=== PATIENT | male | born 1960 | race Caucasian/White ===

== ENCOUNTER → 2016-07-10 | Outpatient (CLI) | payer OTHER ==
--- NOTE | 2016-07-11 07:03 | REP ---
Clinical: Follow-up pulmonary nodule. Comparison: 03/22/2016. Findings: The bilateral lung [place] are well-aerated and relatively symmetric. The previously concerning nodular density in the anterobasilar left lower lobe has completely resolved. The small subpleural density noted on prior examination in the right middle lobe is unchanged and represents small scarring. No evidence for acute consolidation, new nodule or mass lesion identified. No pleural effusion/reaction or pneumothorax. Tracheobronchial tree is patent - mild perihilar bronchiectasis cannot be excluded. Mediastinum is stable and grossly normal. Mild atherosclerotic changes to the coronary arteries are identified. No pericardial effusion is appreciated. Surrounding musculoskeletal structures are intact. Limited evaluation of the upper abdomen suggests hepatosteatosis as well as stable low density lesion in the left kidney most compatible with cyst. Impression: Previously identified left lower lobe opacity has completely resolved. No new, significant mediastinal or pleuroparenchymal process appreciated. Very minimal perihilar bronchiectasis cannot be excluded. Abdomen demonstrates hepatosteatosis as well as presumed left renal cyst. Signed by Martín Pierce MD 07/11/2016 06:54 A
== END | disposition home or self-care (01) ==
LOC: M RAD 07:53
PROVIDERS: ATTEND Internal Medicine Pulmonary Disease
DX: R91.8 Other nonspecific abnormal finding of lung field (principal)

== ENCOUNTER 2016-07-21 10:39 | Emergency (ER) | payer OTHER ==
[2016-07-21] MEDS ORDERED: LORazepam 2 MG/ML VIAL (J2060) As Ordered ONE (11:59)
[2016-07-21 12:25] LABS: BASO % 0.5 % (0.0-1.0); EOS # 0.2 K/mm3 (0.0-0.50); EOS % 1.6 % (0.0-3.0); LARGE UNSTAINED CELL # 0.1 K/mm3 (0.0-0.4); LARGE UNSTAINED CELL % 1.4 % (0.0-4.0); LYMPH # 0.7 K/mm3 (1.5-4.5); MEAN CORPUSCULAR HEMOGLOBIN 33.8 pg (27.0-33.0); MEAN CORPUSCULAR HGB CONC 33.8 g/dl (32.0-36.5); MEAN CORPUSCULAR VOLUME 100.2 fl (80.0-96.0); MONO # 0.7 K/mm3 (0.0-0.8); MONO % 7.1 % (0.0-5.0); NEUTROPHILS # 7.4 K/mm3 (1.8-7.7); NEUTROPHILS % 81.4 % (36.0-66.0); PLATELET COUNT, AUTOMATED 227 k/mm3 (150-450); RED CELL DISTRIBUTION WIDTH 12.5 % (11.5-14.5); WHITE BLOOD COUNT 9.1 K/mm3 (4.0-10.0)
[2016-07-21 12:47] LABS: ALBUMIN 3.8 GM/DL (3.2-5.2); ALKALINE PHOSPHATASE 104 U/L (45-117); ALT/SGPT 44 U/L (12-78); ANION GAP 7 MEQ/L (8-16); AST/SGOT 62 U/L (15-37); BILIRUBIN,TOTAL 3.8 MG/DL (0.2-1.0); BLOOD UREA NITROGEN 9 MG/DL (7-18); CALCIUM LEVEL 9.2 MG/DL (8.5-10.1); CARBON DIOXIDE LEVEL 33 MEQ/L (21-32); CHLORIDE LEVEL 101 MEQ/L (98-107); CREATININE FOR GFR 1.16 MG/DL (0.70-1.30); GLOMERULAR FILTRATION RATE > 60.0 (>56); GLUCOSE, FASTING 92 MG/DL (70-105); POTASSIUM SERUM 4.7 MEQ/L (3.5-5.1); SODIUM LEVEL 141 MEQ/L (136-145); TOTAL PROTEIN 7.6 GM/DL (6.4-8.2)
--- NOTE | 2016-07-21 13:26 | EDDOCDS ---
Nurse's Notes [facility] Name: Samm Cantu Age: 56 yrs Sex: Male : 1960 Arrival Date: 07/21/2016 Time: 10:39 Bed I3 / M3 Private MD: Sherri Quintero Diagnosis: Drug-induced tremor-medication related Presentation: 07/21 11:02 Presenting complaint: Patient states: dizziness/weakness and shakiness started on rs3 at work. was sent home from work. symptoms not resolved. increased leg shakiness worse at night. H/o mild to moderate tremor for 2-3 years. Paxil dose was increased from 40 mg to 60 mg last Friday. Adult Sepsis Screening: The patient does not have new or worsening altered mentation. Patient's respiratory rate is less than 22. Systolic blood pressure is greater than 100. Patient has a qSOFA score of 0- Negative Sepsis Screen. Suicide/Homicide risk assessment- the patient denies having any suicidal and/or homicidal ideations and does not present with any other emotional, behavioral or mental health complaints. Status: Patient is not a answering service operator or dependent. Transition of care: patient was not received from another setting of care. 11:02 Acuity: SUSIE Level 4 rs3 11:02 Method Of Arrival: Walkin/Carried/Asstd rs3 Triage Assessment: 11:09 General: Appears in no apparent distress. Pain: Denies pain. Pt Declines HIV testing. rs3 Historical: - Allergies: Lyrica (Rash); - Home Meds: 1. paroxetine HCl 60 mg Oral tab once daily 2. amlodipine 5 mg Oral tab 1 tab once daily 3. hydrocodone-acetaminophen 5-500 mg Oral cap twice a day - PMHx: Hypertension; Anxiety; Sleep Apnea w/o CPAP; - PSHx: Rotator Cuff Repair- Right; Carpal Tunnel Repair- Left; - Social history: Smoking status: Patient uses tobacco products, light tobacco smoker. No barriers to communication noted, The patient speaks fluent Tajik. - Family history: Not pertinent. - : The pt / caregiver states he / she is not on anticoagulants. Home medication list is obtained from the patient. - Exposure Risk Screening:: None identified. Screenin:22 Screening information is obtained from the patient. Fall risk: No risks identified. dewayneg Assistance ADL's: requires no assistance with activities of daily living. Abuse/DV Screen: The patient / caregiver reports he/she is: not in a situation that causes fear, pain or injury. Nutritional screening: No deficits noted. Advance Directives: Currently, there is no health care proxy. There is no active DNR order. There is no living will. There is no Power of Active Directory Engineer. Advance directive information has not previously been placed in an [facility] medical record. Further advance directive information is declined. home support is adequate. Assessment: 12:21 General: Appears in no apparent distress, Behavior is cooperative, pleasant. Pain: dwg Denies pain. Neurological: Level of Consciousness is awake, alert, Oriented to person, place, time, Outreach Consultant are equal bilaterally Moves all extremities. Full function Gait is steady, Speech is normal, Facial symmetry appears normal, Pupils are PERRLA. Respiratory: Airway is patent Respiratory effort is even, unlabored, Respiratory pattern is regular, symmetrical, Breath sounds are clear bilaterally. GI: Bowel sounds present X 4 quads. Vital Signs: 10:41 BP 159 / 97; Pulse 110; Resp 20; Temp 98.8(O); Pulse Ox 97% on R/A; Weight 90.72 kg elp (R); Height 6 ft. 0 in. (182.88 cm) (R); Pain 0/10; 13:24 BP 148 / 88; Pulse 96; Resp 18; Temp 97.4; Pulse Ox 98% on R/A; Pain 0/10; dls 10:41 Body Mass Index 27.12 (90.72 kg, 182.88 cm) [facility] Vitals: 10:41 Log In Time: July 21, 2016 at 10:35. [facility] ED Course: 10:40 Patient visited by Esther Turner PCA. elp 10:40 Patient moved to Waiting elp 10:41 Sherri Quintero is Private Physician. elp 10:42 Patient visited by Esther Turner PCA. elp 10:42 Patient moved to Pre RCE elp 11:06 Triage Initiated rs3 11:10 Patient moved to Triage 2 rs3 11:36 Corky Gomez [facility]C [facility]. cc10 11:36 Kelley Saldana MD is Attending Physician. cc10 11:36 Patient visited by Corky Gomez PA-C. cc10 11:36 Patient visited by Corky Gomez PA-C. cc10 11:51 Patient moved to I3 / M3 ar3 12:00 Patient visited by Thalia Ingram PCA. ar3 12:00 [facility] Payment Agreement was scanned into [employer] and attached to record. mm15 12:00 EKG done. (by ED staff). Reviewed by Corky Gomez PA-C. ar3 12:20 Liver Profile Sent. dwg 12:21 Inserted peripheral IV: 20gauge IV in right antecubital area. Labs drawn. Sent per dwg order to lab. 12:22 Patient visited by Richard Chang RN. dwg 12:55 Patient visited by Fortunato Ashton PCA. jlf 13:05 Patient visited by Fortunato Ashton PCA. jlf 13:12 Sherri Quintero is Referral Physician. cc10 13:14 Nilam Hwang MD is Referral Physician. cc10 13:22 Discontinued IV lock intact, bleeding controlled, pressure dressing applied, No dls redness/swelling at site. No procedures done that require assistance. 13:25 The patient / caregiver is instructed regarding the plan of care and ED course. dls Administered Medications: 12:20 Drug: LORazepam 0.5 mg [lorazepam 2 mg/mL injection solution (0.25 mL)] Route: IVP; dwg Site: right antecubital; 13:04 Follow up: Response: Tremor to right hand/arm resolved dwg Order Results: Lab Order: Basic Metabolic Profile; SPEC'M 07/21/16 12:10 Test: GLUCOSE, FASTING; Value: 92; Range: 70-105; Units: MG/DL; Status: F Test: BLOOD UREA NITROGEN; Value: 9; Range: 7-18; Units: MG/DL; Status: F Test: CREATININE FOR GFR; Value: 1.16; Range: 0.70-1.30; Units: MG/DL; Status: F Test: GLOMERULAR FILTRATION RATE; Value: > 60.0; Range: >56; Status: F Test: SODIUM LEVEL; Value: 141; Range: 136-145; Units: MEQ/L; Status: F Test: POTASSIUM SERUM; Value: 4.7; Range: 3.5-5.1; Units: MEQ/L; Status: F Test: CHLORIDE LEVEL; Value: 101; Range: 98-107; Units: MEQ/L; Status: F Test: CARBON DIOXIDE LEVEL; Value: 33; Range: 21-32; Abnormal: Above high normal; Units: MEQ/L; Status: F Test: ANION GAP; Value: 7; Range: 8-16; Abnormal: Below low normal; Units: MEQ/L; Status: F Test: CALCIUM LEVEL; Value: 9.2; Range: 8.5-10.1; Units: MG/DL; Status: F Test Note: ; Units are mL/min/1.73 m2 Chronic Kidney Disease Staging per NKF: Stage I & II GFR >=60 Normal to Mildly Decreased Stage III GFR 30-59 Moderately Decreased Stage IV GFR 15-29 Severely Decreased Stage V GFR <15 Very Little GFR Left ESRD GFR <15 on TENANT RELATIONS COORDINATOR Lab Order: CBC with Diff; SPEC'M 07/21/16 12:10 Test: WHITE BLOOD COUNT; Value: 9.1; Range: 4.0-10.0; Units: K/mm3; Status: F Test: RED BLOOD COUNT; Value: 5.07; Range: 4.30-6.10; Units: M/mm3; Status: F Test: HEMOGLOBIN; Value: 17.2; Range: 14.0-18.0; Units: g/dl; Status: F Test: HEMATOCRIT; Value: 50.8; Range: 42.0-52.0; Units: %; Status: F Test: MEAN CORPUSCULAR VOLUME; Value: 100.2; Range: 80.0-96.0; Abnormal: Above high normal; Units: fl; Status: F Test: MEAN CORPUSCULAR HEMOGLOBIN; Value: 33.8; Range: 27.0-33.0; Abnormal: Above high normal; Units: pg; Status: F Test: MEAN CORPUSCULAR HGB CONC; Value: 33.8; Range: 32.0-36.5; Units: g/dl; Status: F Test: RED CELL DISTRIBUTION WIDTH; Value: 12.5; Range: 11.5-14.5; Units: %; Status: F Test: PLATELET COUNT, AUTOMATED; Value: 227; Range: 150-450; Units: k/mm3; Status: F Test: NEUTROPHILS %; Value: 81.4; Range: 36.0-66.0; Abnormal: Above high normal; Units: %; Status: F Test: LYMPH %; Value: 8.0; Range: 24.0-44.0; Abnormal: Below low normal; Units: %; Status: F Test: MONO %; Value: 7.1; Range: 0.0-5.0; Abnormal: Above high normal; Units: %; Status: F Test: EOS %; Value: 1.6; Range: 0.0-3.0; Units: %; Status: F Test: BASO %; Value: 0.5; Range: 0.0-1.0; Units: %; Status: F Test: LARGE UNSTAINED CELL %; Value: 1.4; Range: 0.0-4.0; Units: %; Status: F Test: NEUTROPHILS #; Value: 7.4; Range: 1.8-7.7; Units: K/mm3; Status: F Test: LYMPH #; Value: 0.7; Range: 1.5-4.5; Abnormal: Below low normal; Units: K/mm3; Status: F Test: MONO #; Value: 0.7; Range: 0.0-0.8; Units: K/mm3; Status: F Test: EOS #; Value: 0.2; Range: 0.0-0.50; Units: K/mm3; Status: F Test: BASO #; Value: 0.0; Range: 0.0-0.2; Units: K/mm3; Status: F Test: LARGE UNSTAINED CELL #; Value: 0.1; Range: 0.0-0.4; Units: K/mm3; Status: F Lab Order: Cardiac Injury Profile; SPEC'M 07/21/16 12:10 Test: CPK CREATINE PHOSPHOKINASE; Value: 147; Range: 39-308; Units: U/L; Status: F Test: CK-MB VALUE MASS; Value: 2.6; Range: 0.0-3.6; Units: NG/ML; Status: F Test: MB/CK RELATIVE INDEX; Value: 1.76; Range: < OR =4; Status: F Test Note: ; DIAGNOSIS CRITERIA MMB ng/ml Relative Index (RI) NON-AMI < or = 5 N/A ABBASI ZONE > 5 < or = 4 AMI > 5 > 4 Lab Order: Troponin; SPEC'M 07/21/16 12:10 Test: TROPONIN I; Value: < 0.02; Range: < 0.10; Units: NG/ML; Status: F Test Note: ; Troponin I Reference Interval for [facility] LOCI: 99th Percentile= 0.00-0.045 ng/ml Risk Stratification: <= 0.10 ng/ml Decreased Risk for Adverse Clinical Events. 0.10-1.50 ng/ml Increased Risk for Adverse Clinical Events. Evaluation of additional criterion and/or repeat testing in 2-6 hours is suggested to rule out myocardial damage. >= 1.50 ng/ml Indicative of Myocardial Injury. Lab Order: Liver Profile; SPEC'M 07/21/16 12:10 Test: AST/SGOT; Value: 62; Range: 15-37; Abnormal: Above high normal; Units: U/L; Status: F Test: ALT/SGPT; Value: 44; Range: 12-78; Units: U/L; Status: F Test: ALKALINE PHOSPHATASE; Value: 104; Range: 45-117; Units: U/L; Status: F Test: BILIRUBIN,TOTAL; Value: 3.8; Range: 0.2-1.0; Abnormal: Above high normal; Units: MG/DL; Status: F Test: BILIRUBIN,DIRECT; Value: 1.0; Range: 0.0-0.2; Abnormal: Above high normal; Units: MG/DL; Status: F Test: TOTAL PROTEIN; Value: 7.6; Range: 6.4-8.2; Units: GM/DL; Status: F Test: ALBUMIN; Value: 3.8; Range: 3.2-5.2; Units: GM/DL; Status: F Test: ALBUMIN/GLOBULIN RATIO; Value: 1.00; Range: 1.00-1.93; Status: F Outcome: 13:13 Discharge ordered by Provider. cc10 13:22 Discharge Assessment: Patient awake, alert and oriented x 3. No cognitive and/or dls functional deficits noted. Patient verbalized understanding of disposition instructions. patient administered narcotics - no. The following High Risk Discharge criteria are identified: None. Discharged to home ambulatory, with significant other. Condition: stable. Discharge instructions given to patient, Instructed on discharge instructions, follow up and referral plans. Demonstrated understanding of instructions, Pt was receptive of discharge instructions/ teaching. No special radiology studies were completed. Property sent home with patient. 13:25 Patient left the ED. dls Signatures: Richard Chang RN RN dwg Scott, Debra, RN RN dls Soosairaj, Rosemary, RN RN rs3 Thalia Ingram, MUSICAL INSTRUMENT SUPERVISOR MUSICAL INSTRUMENT SUPERVISOR ar3 Krystle Matta mm15 Esther Turner, MUSICAL INSTRUMENT SUPERVISOR MUSICAL INSTRUMENT SUPERVISOR elp Fortunato Ashton, MUSICAL INSTRUMENT SUPERVISOR MUSICAL INSTRUMENT SUPERVISOR jlf Cokry Gomez, PA-C PA-C cc10 MTDD
--- NOTE | 2016-07-21 13:26 | EDDOCDS ---
Physician Documentation [facility] Name: Samm Cantu Age: 56 yrs Sex: Male : 1960 Arrival Date: 07/21/2016 Time: 10:39 Bed I3 / M3 Private MD: Sherri Quintero Disposition: 07/21/16 13:13 Discharged to Home/Self Care. Impression: Drug-induced tremor - medication related. - Condition is Stable. - Discharge Instructions: Dystonic Reaction, Tremor. - Medication Reconciliation, Work Release Form - 3 day form. - Follow up: Emergency Department; When: As needed; Reason: Worsening of conditions. Follow up: Sherri Quintero; When: Tomorrow; Reason: Wound/Symptom Recheck, Recheck today's complaints, Worsening of conditions, Continuance of care. Follow up: Nilam Hwang MD; When: Call to arrange an appointment; Reason: Wound/Symptom Recheck, Recheck today's complaints, Worsening of conditions, Continuance of care, To establish care. - Problem is an ongoing problem. - Symptoms have improved. Historical: - Allergies: Lyrica (Rash); - Home Meds: 1. paroxetine HCl 60 mg Oral tab once daily 2. amlodipine 5 mg Oral tab 1 tab once daily 3. hydrocodone-acetaminophen 5-500 mg Oral cap twice a day - PMHx: Hypertension; Anxiety; Sleep Apnea w/o CPAP; - PSHx: Rotator Cuff Repair- Right; Carpal Tunnel Repair- Left; - Social history: Smoking status: Patient uses tobacco products, light tobacco smoker. No barriers to communication noted, The patient speaks fluent Guamanian. - Family history: Not pertinent. - : The pt / caregiver states he / she is not on anticoagulants. Home medication list is obtained from the patient. - Exposure Risk Screening:: None identified. Vital Signs: 07/21 10:41 BP 159 / 97; Pulse 110; Resp 20; Temp 98.8(O); Pulse Ox 97% on R/A; Weight 90.72 kg / elp 200 lbs (R); Height 6 ft. 0 in. (182.88 cm) (R); Pain 0/10; 13:24 BP 148 / 88; Pulse 96; Resp 18; Temp 97.4; Pulse Ox 98% on R/A; Pain 0/10; dls 10:41 Body Mass Index 27.12 (90.72 kg, 182.88 cm) elp MDM: 11:51 IV Saline Lock ordered. cc10 11:51 Undress patient appropriately for examination ordered. cc10 11:51 LORazepam 0.5 mg IVP once ordered. cc10 11:51 Basic Metabolic Profile Ordered. EDMS 11:51 CBC with Diff Ordered. EDMS 11:51 Cardiac Injury Profile Ordered. EDMS 11:51 Troponin Ordered. EDMS 11:51 Liver Profile Ordered. EDMS 11:52 ECG WITH READING ER PHYS+CARDIAG ordered. EDMS 11:53 CT Head Without Contrast Ordered. EDMS 11:58 Financial registration complete. mm15 12:00 [facility] Payment Agreement was scanned into [employer] and attached to record. mm15 12:54 Basic Metabolic Profile Reviewed. cc10 12:54 CBC with Diff Reviewed. cc10 12:54 Liver Profile Reviewed. cc10 12:54 Cardiac Injury Profile Reviewed. cc10 12:54 Troponin Reviewed. cc10 Administered Medications: 12:20 Drug: LORazepam 0.5 mg [lorazepam 2 mg/mL injection solution (0.25 mL)] Route: IVP; dwg Site: right antecubital; 13:04 Follow up: Response: Tremor to right hand/arm resolved dwg Signatures: Dispatcher [employer] Milagros Goodwin, RN RN dls Melissa Mena RN RN rs3 Krystle Matta mm15 Corky Gomez PA-C PA-C cc10 Greene, Daniel RN dwg The chart was reviewed and I authenticate all verbal orders and agree with the evaluation and treatment provided.Attachments: 12:00 [facility] Payment Agreement mm15 MTDD
--- NOTE | 2016-07-21 15:52 | ECGEPIP ---
Stationary ECG Study 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
--- NOTE | 2016-07-22 11:15 | REP ---
CT of the brain without IV contrast: There are no comparisons. There is no hemorrhage. There is no edema, mass effect or midline shift. Cortical stripe is unremarkable. Ventricles and sulci are unremarkable. The visualized sinuses and mastoids are unremarkable. Impression: There is no hemorrhage, acute infarct or mass. Negative CT scan of the brain. Signed by Richard Garnett MD 07/21/2016 12:14 P
--- NOTE | 2016-07-23 14:26 | EDDOCDS ---
Nurse's Notes [facility] Name: Samm Cantu Age: 56 yrs Sex: Male : 1960 Arrival Date: 07/21/2016 Time: 10:39 Bed I3 / M3 Private MD: Sherri Quintero Diagnosis: Drug-induced tremor-medication related Presentation: 07/21 11:02 Presenting complaint: Patient states: dizziness/weakness and shakiness started on rs3 at work. was sent home from work. symptoms not resolved. increased leg shakiness worse at night. H/o mild to moderate tremor for 2-3 years. Paxil dose was increased from 40 mg to 60 mg last Friday. Adult Sepsis Screening: The patient does not have new or worsening altered mentation. Patient's respiratory rate is less than 22. Systolic blood pressure is greater than 100. Patient has a qSOFA score of 0- Negative Sepsis Screen. Suicide/Homicide risk assessment- the patient denies having any suicidal and/or homicidal ideations and does not present with any other emotional, behavioral or mental health complaints. 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 Transition of care: patient was not received from another setting of care. 11:02 Acuity: SUSIE Level 4 rs3 11:02 Method Of Arrival: Walkin/Carried/Asstd rs3 Triage Assessment: 11:09 General: Appears in no apparent distress. Pain: Denies pain. Pt Declines HIV testing. rs3 Historical: - Allergies: Lyrica (Rash); - Home Meds: 1. paroxetine HCl 60 mg Oral tab once daily 2. amlodipine 5 mg Oral tab 1 tab once daily 3. hydrocodone-acetaminophen 5-500 mg Oral cap twice a day - PMHx: Hypertension; Anxiety; Sleep Apnea w/o CPAP; - PSHx: Rotator Cuff Repair- Right; Carpal Tunnel Repair- Left; - Social history: Smoking status: Patient uses tobacco products, light tobacco smoker. No barriers to communication noted, The patient speaks fluent Amharic. - Family history: Not pertinent. - : The pt / caregiver states he / she is not on anticoagulants. Home medication list is obtained from the patient. - Exposure Risk Screening:: None identified. Screenin:22 Screening information is obtained from the patient. Fall risk: No risks identified. dewayneg Assistance ADL's: requires no assistance with activities of daily living. Abuse/DV Screen: The patient / caregiver reports he/she is: not in a situation that causes fear, pain or injury. Nutritional screening: No deficits noted. Advance Directives: Currently, there is no health care proxy. There is no active DNR order. There is no living will. There is no Power of C Consultant. Advance directive information has not previously been placed in an [facility] medical record. Further advance directive information is declined. home support is adequate. Assessment: 12:21 General: Appears in no apparent distress, Behavior is cooperative, pleasant. Pain: dwg Denies pain. Neurological: Level of Consciousness is awake, alert, Oriented to person, place, time, Energy Trader are equal bilaterally Moves all extremities. Full function Gait is steady, Speech is normal, Facial symmetry appears normal, Pupils are PERRLA. Respiratory: Airway is patent Respiratory effort is even, unlabored, Respiratory pattern is regular, symmetrical, Breath sounds are clear bilaterally. GI: Bowel sounds present X 4 quads. Vital Signs: 10:41 BP 159 / 97; Pulse 110; Resp 20; Temp 98.8(O); Pulse Ox 97% on R/A; Weight 90.72 kg elp (R); Height 6 ft. 0 in. (182.88 cm) (R); Pain 0/10; 13:24 BP 148 / 88; Pulse 96; Resp 18; Temp 97.4; Pulse Ox 98% on R/A; Pain 0/10; dls 10:41 Body Mass Index 27.12 (90.72 kg, 182.88 cm) [facility] Vitals: 10:41 Log In Time: July 21, 2016 at 10:35. [facility] ED Course: 10:40 Patient visited by Esther Turner PCA. elp 10:40 Patient moved to Waiting elp 10:41 hSerri Quintero is Private Physician. elp 10:42 Patient visited by Esther Turner PCA. elp 10:42 Patient moved to Pre RCE elp 11:06 Triage Initiated rs3 11:10 Patient moved to Triage 2 rs3 11:36 [facility] cc10 11:36 Kelley Saldana MD is Attending Physician. cc10 11:36 Patient visited by Corky Gomez PA-C. cc10 11:36 Patient visited by Corky Gomez PA-C. cc10 11:51 Patient moved to I3 / M3 ar3 12:00 Patient visited by Thalia Ingram PCA. ar3 12:00 [facility] Payment Agreement was scanned into [email or web address] and attached to record. mm15 12:00 EKG done. (by ED staff). Reviewed by Corky Gomez PA-C. ar3 12:20 Liver Profile Sent. dwg 12:21 Inserted peripheral IV: 20gauge IV in right antecubital area. Labs drawn. Sent per dwg order to lab. 12:22 Patient visited by Richard Chang RN. dwg 12:55 Patient visited by Fortunato Ashton PCA. jlf 13:05 Patient visited by Fortunato Ashton PCA. jlf 13:12 Sherri Quintero is Referral Physician. cc10 13:14 Nilam Hwang MD is Referral Physician. cc10 13:22 Discontinued IV lock intact, bleeding controlled, pressure dressing applied, No dls redness/swelling at site. No procedures done that require assistance. 13:25 The patient / caregiver is instructed regarding the plan of care and ED course. dls 16:04 EKG-ADULT Returned. EDMS 18:18 T-Sheet-- Draft Copy was scanned into [employer] and attached to record. klr 19:19 ECG/EKG was scanned into [employer] and attached to record. kf3 07/22 11:20 CT Head Without Contrast Returned. EDMS Administered Medications: 07/21 12:20 Drug: LORazepam 0.5 mg [lorazepam 2 mg/mL injection solution (0.25 mL)] Route: IVP; dwg Site: right antecubital; 13:04 Follow up: Response: Tremor to right hand/arm resolved dwg Order Results: Lab Order: Basic Metabolic Profile; SPEC'M 07/21/16 12:10 Test: GLUCOSE, FASTING; Value: 92; Range: 70-105; Units: MG/DL; Status: F Test: BLOOD UREA NITROGEN; Value: 9; Range: 7-18; Units: MG/DL; Status: F Test: CREATININE FOR GFR; Value: 1.16; Range: 0.70-1.30; Units: MG/DL; Status: F Test: GLOMERULAR FILTRATION RATE; Value: > 60.0; Range: >56; Status: F Test: SODIUM LEVEL; Value: 141; Range: 136-145; Units: MEQ/L; Status: F Test: POTASSIUM SERUM; Value: 4.7; Range: 3.5-5.1; Units: MEQ/L; Status: F Test: CHLORIDE LEVEL; Value: 101; Range: 98-107; Units: MEQ/L; Status: F Test: CARBON DIOXIDE LEVEL; Value: 33; Range: 21-32; Abnormal: Above high normal; Units: MEQ/L; Status: F Test: ANION GAP; Value: 7; Range: 8-16; Abnormal: Below low normal; Units: MEQ/L; Status: F Test: CALCIUM LEVEL; Value: 9.2; Range: 8.5-10.1; Units: MG/DL; Status: F Test Note: ; Units are mL/min/1.73 m2 Chronic Kidney Disease Staging per NKF: Stage I & II GFR >=60 Normal to Mildly Decreased Stage III GFR 30-59 Moderately Decreased Stage IV GFR 15-29 Severely Decreased Stage V GFR <15 Very Little GFR Left ESRD GFR <15 on DIRECTOR OF SCIENTIFIC RESEARCH Lab Order: CBC with Diff; SPEC'M 07/21/16 12:10 Test: WHITE BLOOD COUNT; Value: 9.1; Range: 4.0-10.0; Units: K/mm3; Status: F Test: RED BLOOD COUNT; Value: 5.07; Range: 4.30-6.10; Units: M/mm3; Status: F Test: HEMOGLOBIN; Value: 17.2; Range: 14.0-18.0; Units: g/dl; Status: F Test: HEMATOCRIT; Value: 50.8; Range: 42.0-52.0; Units: %; Status: F Test: MEAN CORPUSCULAR VOLUME; Value: 100.2; Range: 80.0-96.0; Abnormal: Above high normal; Units: fl; Status: F Test: MEAN CORPUSCULAR HEMOGLOBIN; Value: 33.8; Range: 27.0-33.0; Abnormal: Above high normal; Units: pg; Status: F Test: MEAN CORPUSCULAR HGB CONC; Value: 33.8; Range: 32.0-36.5; Units: g/dl; Status: F Test: RED CELL DISTRIBUTION WIDTH; Value: 12.5; Range: 11.5-14.5; Units: %; Status: F Test: PLATELET COUNT, AUTOMATED; Value: 227; Range: 150-450; Units: k/mm3; Status: F Test: NEUTROPHILS %; Value: 81.4; Range: 36.0-66.0; Abnormal: Above high normal; Units: %; Status: F Test: LYMPH %; Value: 8.0; Range: 24.0-44.0; Abnormal: Below low normal; Units: %; Status: F Test: MONO %; Value: 7.1; Range: 0.0-5.0; Abnormal: Above high normal; Units: %; Status: F Test: EOS %; Value: 1.6; Range: 0.0-3.0; Units: %; Status: F Test: BASO %; Value: 0.5; Range: 0.0-1.0; Units: %; Status: F Test: LARGE UNSTAINED CELL %; Value: 1.4; Range: 0.0-4.0; Units: %; Status: F Test: NEUTROPHILS #; Value: 7.4; Range: 1.8-7.7; Units: K/mm3; Status: F Test: LYMPH #; Value: 0.7; Range: 1.5-4.5; Abnormal: Below low normal; Units: K/mm3; Status: F Test: MONO #; Value: 0.7; Range: 0.0-0.8; Units: K/mm3; Status: F Test: EOS #; Value: 0.2; Range: 0.0-0.50; Units: K/mm3; Status: F Test: BASO #; Value: 0.0; Range: 0.0-0.2; Units: K/mm3; Status: F Test: LARGE UNSTAINED CELL #; Value: 0.1; Range: 0.0-0.4; Units: K/mm3; Status: F Lab Order: Cardiac Injury Profile; SPEC'M 07/21/16 12:10 Test: CPK CREATINE PHOSPHOKINASE; Value: 147; Range: 39-308; Units: U/L; Status: F Test: CK-MB VALUE MASS; Value: 2.6; Range: 0.0-3.6; Units: NG/ML; Status: F Test: MB/CK RELATIVE INDEX; Value: 1.76; Range: < OR =4; Status: F Test Note: ; DIAGNOSIS CRITERIA MMB ng/ml Relative Index (RI) NON-AMI < or = 5 N/A ABBASI ZONE > 5 < or = 4 AMI > 5 > 4 Lab Order: Troponin; SPEC'M 07/21/16 12:10 Test: TROPONIN I; Value: < 0.02; Range: < 0.10; Units: NG/ML; Status: F Test Note: ; Troponin I Reference Interval for [employer] LOCI: 99th Percentile= 0.00-0.045 ng/ml Risk Stratification: <= 0.10 ng/ml Decreased Risk for Adverse Clinical Events. 0.10-1.50 ng/ml Increased Risk for Adverse Clinical Events. Evaluation of additional criterion and/or repeat testing in 2-6 hours is suggested to rule out myocardial damage. >= 1.50 ng/ml Indicative of Myocardial Injury. Lab Order: Liver Profile; SPEC'M 07/21/16 12:10 Test: AST/SGOT; Value: 62; Range: 15-37; Abnormal: Above high normal; Units: U/L; Status: F Test: ALT/SGPT; Value: 44; Range: 12-78; Units: U/L; Status: F Test: ALKALINE PHOSPHATASE; Value: 104; Range: 45-117; Units: U/L; Status: F Test: BILIRUBIN,TOTAL; Value: 3.8; Range: 0.2-1.0; Abnormal: Above high normal; Units: MG/DL; Status: F Test: BILIRUBIN,DIRECT; Value: 1.0; Range: 0.0-0.2; Abnormal: Above high normal; Units: MG/DL; Status: F Test: TOTAL PROTEIN; Value: 7.6; Range: 6.4-8.2; Units: GM/DL; Status: F Test: ALBUMIN; Value: 3.8; Range: 3.2-5.2; Units: GM/DL; Status: F Test: ALBUMIN/GLOBULIN RATIO; Value: 1.00; Range: 1.00-1.93; Status: F Radiology Order: EKG-ADULT Test: EKG-ADULT REASON FOR EXAMINATION: weakness; Stationary ECG Study; [facility] - ED; ; Test Date: 2016-07-21; Pat Name: SAMM CANTU Department:; Room: -; Gender: M 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 There is no edema, mass effect or midline shift.; Cortical stripe is unremarkable. Ventricles and sulci are unremarkable. The; visualized sinuses and mastoids are unremarkable.; ; Impression:; ; There is no hemorrhage, acute infarct or mass. Negative CT scan of the brain.; ; ; Signed by; Richard Garnett MD 07/21/2016 12:14 P; Outcome: 13:13 Discharge ordered by Provider. cc10 13:22 Discharge Assessment: Patient awake, alert and oriented x 3. No cognitive and/or dls functional deficits noted. Patient verbalized understanding of disposition instructions. patient administered narcotics - no. The following High Risk Discharge criteria are identified: None. Discharged to home ambulatory, with significant other. Condition: stable. Discharge instructions given to patient, Instructed on discharge instructions, follow up and referral plans. Demonstrated understanding of instructions, Pt was receptive of discharge instructions/ teaching. No special radiology studies were completed. Property sent home with patient. 13:25 Patient left the ED. dls Signatures: Dispatcher [employer] Richard Zamudio RN RN dwg Scott, Debra, RN RN dls Fiddler, Kris, Reg Reg kf3 Melissa Mena RN RN rs3 Thalia Ingram, CAUSE ANALYST CAUSE ANALYST ar3 Krystle aMtta mm15 Esther Turner, CAUSE ANALYST CAUSE ANALYST elp Fortunato Ashton, CAUSE ANALYST CAUSE ANALYST jlf Corky Gomez, IRINA PADemetrius cc10 Nicole Lopez Chart Complete MTDD
--- NOTE | 2016-07-23 14:26 | EDDOCDS ---
Physician Documentation [facility] Name: Samm Cantu Age: 56 yrs Sex: Male : 1960 Arrival Date: 07/21/2016 Time: 10:39 Bed I3 / M3 Private MD: Sherri Quintero Disposition: 07/21/16 13:13 Discharged to Home/Self Care. Impression: Drug-induced tremor - medication related. - Condition is Stable. - Discharge Instructions: Dystonic Reaction, Tremor. - Medication Reconciliation, Work Release Form - 3 day form. - Follow up: Emergency Department; When: As needed; Reason: Worsening of conditions. Follow up: Sherri Quintero; When: Tomorrow; Reason: Wound/Symptom Recheck, Recheck today's complaints, Worsening of conditions, Continuance of care. Follow up: Nilam Hwang MD; When: Call to arrange an appointment; Reason: Wound/Symptom Recheck, Recheck today's complaints, Worsening of conditions, Continuance of care, To establish care. - Problem is an ongoing problem. - Symptoms have improved. Historical: - Allergies: Lyrica (Rash); - Home Meds: 1. paroxetine HCl 60 mg Oral tab once daily 2. amlodipine 5 mg Oral tab 1 tab once daily 3. hydrocodone-acetaminophen 5-500 mg Oral cap twice a day - PMHx: Hypertension; Anxiety; Sleep Apnea w/o CPAP; - PSHx: Rotator Cuff Repair- Right; Carpal Tunnel Repair- Left; - Social history: Smoking status: Patient uses tobacco products, light tobacco smoker. No barriers to communication noted, The patient speaks fluent Ecuadorean. - Family history: Not pertinent. - : The pt / caregiver states he / she is not on anticoagulants. Home medication list is obtained from the patient. - Exposure Risk Screening:: None identified. Vital Signs: 07/21 10:41 BP 159 / 97; Pulse 110; Resp 20; Temp 98.8(O); Pulse Ox 97% on R/A; Weight 90.72 kg / elp 200 lbs (R); Height 6 ft. 0 in. (182.88 cm) (R); Pain 0/10; 13:24 BP 148 / 88; Pulse 96; Resp 18; Temp 97.4; Pulse Ox 98% on R/A; Pain 0/10; dls 10:41 Body Mass Index 27.12 (90.72 kg, 182.88 cm) elp MDM: 11:51 IV Saline Lock ordered. cc10 11:51 Undress patient appropriately for examination ordered. cc10 11:51 LORazepam 0.5 mg IVP once ordered. cc10 11:51 Basic Metabolic Profile Ordered. EDMS 11:51 CBC with Diff Ordered. EDMS 11:51 Cardiac Injury Profile Ordered. EDMS 11:51 Troponin Ordered. EDMS 11:51 Liver Profile Ordered. EDMS 11:52 ECG WITH READING ER PHYS+CARDIAG ordered. EDMS 11:53 CT Head Without Contrast Ordered. EDMS 11:58 Financial registration complete. mm15 12:00 [facility] Payment Agreement was scanned into [employer] and attached to record. mm15 12:54 Basic Metabolic Profile Reviewed. cc10 12:54 CBC with Diff Reviewed. cc10 12:54 Liver Profile Reviewed. cc10 12:54 Cardiac Injury Profile Reviewed. cc10 12:54 Troponin Reviewed. cc10 18:18 T-Sheet-- Draft Copy was scanned into [employer] and attached to record. klr 19:19 ECG/EKG was scanned into [employer] and attached to record. kf3 Administered Medications: 12:20 Drug: LORazepam 0.5 mg [lorazepam 2 mg/mL injection solution (0.25 mL)] Route: IVP; dwg Site: right antecubital; 13:04 Follow up: Response: Tremor to right hand/arm resolved dwg Signatures: Dispatcher [employer] EDMilagros Angeles RN RN dls Srinivas Argueta, Reg Reg kf3 Melissa Mena RN RN rs3 Krystle Matta mm15 Corky Gomez PA-C PADemetrius cc10 Nicole Lopez klRichard Schaeffer RN dwg The chart was reviewed and I authenticate all verbal orders and agree with the evaluation and treatment provided.Attachments: 12:00 [facility] Payment Agreement mm15 18:18 T-Sheet-- Draft Copy klr 19:19 ECG/EKG kf3 Chart Complete MTDD
--- NOTE | 2016-07-23 14:26 | EDDOCDS ---
Physician Documentation [facility] Name: Samm Cantu Age: 56 yrs Sex: Male : 1960 Arrival Date: 07/21/2016 Time: 10:39 Bed I3 / M3 Private MD: Sherri Quintero Disposition: 07/21/16 13:13 Discharged to Home/Self Care. Impression: Drug-induced tremor - medication related. - Condition is Stable. - Discharge Instructions: Dystonic Reaction, Tremor. - Medication Reconciliation, Work Release Form - 3 day form. - Follow up: Emergency Department; When: As needed; Reason: Worsening of conditions. Follow up: Sherri Quintero; When: Tomorrow; Reason: Wound/Symptom Recheck, Recheck today's complaints, Worsening of conditions, Continuance of care. Follow up: Nilam Hwang MD; When: Call to arrange an appointment; Reason: Wound/Symptom Recheck, Recheck today's complaints, Worsening of conditions, Continuance of care, To establish care. - Problem is an ongoing problem. - Symptoms have improved. Historical: - Allergies: Lyrica (Rash); - Home Meds: 1. paroxetine HCl 60 mg Oral tab once daily 2. amlodipine 5 mg Oral tab 1 tab once daily 3. hydrocodone-acetaminophen 5-500 mg Oral cap twice a day - PMHx: Hypertension; Anxiety; Sleep Apnea w/o CPAP; - PSHx: Rotator Cuff Repair- Right; Carpal Tunnel Repair- Left; - Social history: Smoking status: Patient uses tobacco products, light tobacco smoker. No barriers to communication noted, The patient speaks fluent Micronesian. - Family history: Not pertinent. - : The pt / caregiver states he / she is not on anticoagulants. Home medication list is obtained from the patient. - Exposure Risk Screening:: None identified. Vital Signs: 07/21 10:41 BP 159 / 97; Pulse 110; Resp 20; Temp 98.8(O); Pulse Ox 97% on R/A; Weight 90.72 kg / elp 200 lbs (R); Height 6 ft. 0 in. (182.88 cm) (R); Pain 0/10; 13:24 BP 148 / 88; Pulse 96; Resp 18; Temp 97.4; Pulse Ox 98% on R/A; Pain 0/10; dls 10:41 Body Mass Index 27.12 (90.72 kg, 182.88 cm) elp MDM: 11:51 IV Saline Lock ordered. cc10 11:51 Undress patient appropriately for examination ordered. cc10 11:51 LORazepam 0.5 mg IVP once ordered. cc10 11:51 Basic Metabolic Profile Ordered. EDMS 11:51 CBC with Diff Ordered. EDMS 11:51 Cardiac Injury Profile Ordered. EDMS 11:51 Troponin Ordered. EDMS 11:51 Liver Profile Ordered. EDMS 11:52 ECG WITH READING ER PHYS+CARDIAG ordered. EDMS 11:53 CT Head Without Contrast Ordered. EDMS 11:58 Financial registration complete. mm15 12:00 [facility] Payment Agreement was scanned into [employer] and attached to record. mm15 12:54 Basic Metabolic Profile Reviewed. cc10 12:54 CBC with Diff Reviewed. cc10 12:54 Liver Profile Reviewed. cc10 12:54 Cardiac Injury Profile Reviewed. cc10 12:54 Troponin Reviewed. cc10 18:18 T-Sheet-- Draft Copy was scanned into [employer] and attached to record. klr 19:19 ECG/EKG was scanned into [employer] and attached to record. kf3 Administered Medications: 12:20 Drug: LORazepam 0.5 mg [lorazepam 2 mg/mL injection solution (0.25 mL)] Route: IVP; dwg Site: right antecubital; 13:04 Follow up: Response: Tremor to right hand/arm resolved dwg Signatures: Dispatcher [employer] EDMilagros Angeles RN RN dls Srinivas Argueta, Reg Reg kf3 Melissa Mena RN RN rs3 Krystle Matta mm15 Corky Gomez PA-C PADemetrius cc10 Nicole Lopez klRichard Schaeffer RN dwg The chart was reviewed and I authenticate all verbal orders and agree with the evaluation and treatment provided.Attachments: 12:00 [facility] Payment Agreement mm15 18:18 T-Sheet-- Draft Copy klr 19:19 ECG/EKG kf3 Chart Complete MTDD
== END 2016-07-21 13:25 | disposition home or self-care (01) ==
LOC: M ED 10:39
DX: R25.1 Tremor, unspecified (principal); F41.9 Anxiety disorder, unspecified; R42 Dizziness and giddiness; R53.1 Weakness; I10 Essential (primary) hypertension; G47.30 Sleep apnea, unspecified; F17.210 Nicotine dependence, cigarettes, uncomplicated; Z79.899 Other long term (current) drug therapy; Z88.8 Allergy status to other drugs, medicaments and biological substances
CPT/HCPCS: 70450; 80048; 80076; 82550; 82553; 85025; 93005; 96374; 99284; J2060

== ENCOUNTER 2016-08-09 07:18 | Emergency (ER) | payer OTHER ==
--- NOTE | 2016-08-09 07:44 | EDDOCDS ---
Nurse's Notes [facility] Name: Samm Cantu Age: 56 yrs Sex: Male : 1960 Arrival Date: 08/09/2016 Time: 07:18 Bed Triage 1 Private MD: Sherri Quintero Diagnosis: Encounter for issue of repeat prescription-Lowber Presentation: 08/09 07:22 Presenting complaint: Patient states: needs refill for norco 7.5/325 mg, PCP Dr Leon salcido unavailable at this time. Adult Sepsis Screening: The patient does not have new or worsening altered mentation. Patient's respiratory rate is less than 22. Systolic blood pressure is greater than 100. Patient has a qSOFA score of 0- Negative Sepsis Screen. Suicide/Homicide risk assessment- the patient denies having any suicidal and/or homicidal ideations and does not present with any other emotional, behavioral or mental health complaints. 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 Transition of care: patient was not received from another setting of care. 07:22 Acuity: SUSIE Level 5 jjr 07:22 Method Of Arrival: Walkin/Carried/Asstd jjr Triage Assessment: 07:29 General: Appears in no apparent distress, Behavior is appropriate for age. Pain: Denies jjr pain. HIV screening NA for this visit Offered previously. Historical: - Allergies: Lyrica (Rash); amlodipine (tremor); PAROXETINE DERIVATIVES (tremor); - Home Meds: 1. Lowber 7.5-325 mg Oral tab bid (Last dose: 08/08/2016) 2. Xanax 0.25 mg Oral tab 1 tab 3 times per day (Last dose: 08/08/2016) 3. blood pressure medication and antidepressant - PMHx: Anxiety; Hypertension; Sleep Apnea w/o CPAP; T11 crush injury; - PSHx: Rotator Cuff Repair- Right; Carpal Tunnel Repair- Left; - Social history: Smoking status: Patient uses tobacco products, current every day smoker. No barriers to communication noted, The patient speaks fluent Moldovan. - : The pt / caregiver states he / she is not on anticoagulants. Home medication list is obtained from the patient. - Exposure Risk Screening:: None identified. Screenin:42 Screening information is obtained from the patient. Fall risk: No risks identified. jjr Assistance ADL's: requires no assistance with activities of daily living. Abuse/DV Screen: The patient / caregiver reports he/she is: not in a situation that causes fear, pain or injury. Nutritional screening: No deficits noted. Advance Directives: There is no active DNR order. home support is adequate. Assessment: 07:42 General: Appears in no apparent distress, Behavior is appropriate for age, hands appear jjr shaky. Neurological: No deficits noted. Respiratory: No deficits noted. Derm: No deficits noted. Vital Signs: 07:27 BP 144 / 95; Pulse 77; Resp 18; Temp 97.5(O); Pulse Ox 97% on R/A; Weight 90.72 kg (R); jjr Height 6 ft. 0 in. (182.88 cm) (R); Pain 0/10; 07:27 Body Mass Index 27.12 (90.72 kg, 182.88 cm) jjr Vitals: 07:27 Log In Time: August 09, 2016 at 07:18. jjr ED Course: 07:19 Patient visited by Uli Wan Reg. pm4 07:19 Patient moved to Waiting pm4 07:20 Sherri Quintero is Private Physician. pm4 07:22 Patient moved to Triage 1 jjr 07:23 Triage Initiated jjr 07:25 Kathy Louise [facility] dt4 07:25 Kelley Saldana MD is Attending Physician. dt4 07:25 Patient visited by Kathy Louise PA-C. dt4 07:33 Sherri Quintero is Referral Physician. dt4 07:42 The patient / caregiver is instructed regarding the plan of care and ED course. jjr 07:42 No IV's were initiated during this patient's visit. No procedures done that require jjr assistance. Order Results: There are currently no results for this order. Outcome: 07:34 Discharge ordered by Provider. dt4 07:43 Discharge Assessment: patient administered narcotics - no. The following High Risk jjr Discharge criteria are identified: None. Discharged to home ambulatory. Condition: stable. Discharge instructions given to patient, Instructed on discharge instructions, follow up and referral plans. medication usage, Demonstrated understanding of instructions, medications, Prescriptions given X 1. No special radiology studies were completed. Property sent home with patient. 07:43 Patient left the ED. miriamr Signatures: Carolann Holder RN RN Kathy Malhotra, IRINA AREVALO dt4 Uli Wan, Reg Reg pm4 MTDD
--- NOTE | 2016-08-09 07:44 | EDDOCDS ---
Physician Documentation [facility] Name: Samm Cantu Age: 56 yrs Sex: Male : 1960 Arrival Date: 08/09/2016 Time: 07:18 Bed Triage 1 Private MD: Sherri Quintero Disposition: 08/09/16 07:34 Discharged to Home/Self Care. Impression: Encounter for issue of repeat prescription - [place]. - Condition is Stable. - Discharge Instructions: Medicine Refill at the Emergency Department. - Prescriptions for [place] 7.5- 325 mg Oral Tablet - take 1 tablet by ORAL route every 6 hours As needed MDD: 4 tabs; 6 tablet. - Medication Reconciliation, Local Pharmacy Hours form. - Follow up: Emergency Department; When: As needed; Reason: Worsening of conditions. Follow up: Sherri Quintero; When: on 08/12/16, at your scheduled appointment; Reason: Wound/Symptom Recheck, Recheck today's complaints, Continuance of care. - Problem is new. - Symptoms are unchanged. Historical: - Allergies: Lyrica (Rash); amlodipine (tremor); PAROXETINE DERIVATIVES (tremor); - Home Meds: 1. [place] 7.5-325 mg Oral tab bid (Last dose: 08/08/2016) 2. Xanax 0.25 mg Oral tab 1 tab 3 times per day (Last dose: 08/08/2016) 3. blood pressure medication and antidepressant - PMHx: Anxiety; Hypertension; Sleep Apnea w/o CPAP; T11 crush injury; - PSHx: Rotator Cuff Repair- Right; Carpal Tunnel Repair- Left; - Social history: Smoking status: Patient uses tobacco products, current every day smoker. No barriers to communication noted, The patient speaks fluent Kazakh. - : The pt / caregiver states he / she is not on anticoagulants. Home medication list is obtained from the patient. - Exposure Risk Screening:: None identified. Vital Signs: 08/09 07:27 BP 144 / 95; Pulse 77; Resp 18; Temp 97.5(O); Pulse Ox 97% on R/A; Weight 90.72 kg / jjr 200 lbs (R); Height 6 ft. 0 in. (182.88 cm) (R); Pain 0/10; 07:27 Body Mass Index 27.12 (90.72 kg, 182.88 cm) jjr Signatures: Carolann Holder, DISHA RN jjr Kathy Louise PA-C PA-C dt4 MTDD
[2016-08-10] MEDS ORDERED: METAL LOCK LOOP XX ONE (02:36)
--- NOTE | 2016-08-11 08:44 | EDDOCDS ---
Physician Documentation [facility] Name: Samm Cantu Age: 56 yrs Sex: Male : 1960 Arrival Date: 08/09/2016 Time: 07:18 Bed Triage 1 Private MD: Sherri Quintero Disposition: 08/09/16 07:34 Discharged to Home/Self Care. Impression: Encounter for issue of repeat prescription - [place]. - Condition is Stable. - Discharge Instructions: Medicine Refill at the Emergency Department. - Prescriptions for [place] 7.5- 325 mg Oral Tablet - take 1 tablet by ORAL route every 6 hours As needed MDD: 4 tabs; 6 tablet. - Medication Reconciliation, Local Pharmacy Hours form. - Follow up: Emergency Department; When: As needed; Reason: Worsening of conditions. Follow up: Sherri Quintero; When: on 08/12/16, at your scheduled appointment; Reason: Wound/Symptom Recheck, Recheck today's complaints, Continuance of care. - Problem is new. - Symptoms are unchanged. Historical: - Allergies: Lyrica (Rash); amlodipine (tremor); PAROXETINE DERIVATIVES (tremor); - Home Meds: 1. [place] 7.5-325 mg Oral tab bid (Last dose: 08/08/2016) 2. Xanax 0.25 mg Oral tab 1 tab 3 times per day (Last dose: 08/08/2016) 3. blood pressure medication and antidepressant - PMHx: Anxiety; Hypertension; Sleep Apnea w/o CPAP; T11 crush injury; - PSHx: Rotator Cuff Repair- Right; Carpal Tunnel Repair- Left; - Social history: Smoking status: Patient uses tobacco products, current every day smoker. No barriers to communication noted, The patient speaks fluent [place]ib[place]ian. - : The pt / caregiver states he / she is not on anticoagulants. Home medication list is obtained from the patient. - Exposure Risk Screening:: None identified. Vital Signs: 08/09 07:27 BP 144 / 95; Pulse 77; Resp 18; Temp 97.5(O); Pulse Ox 97% on R/A; Weight 90.72 kg / jjr 200 lbs (R); Height 6 ft. 0 in. (182.88 cm) (R); Pain 0/10; 07:27 Body Mass Index 27.12 (90.72 kg, 182.88 cm) loly MDM: 07:47 Financial registration complete. mm15 07:48 [facility] Payment Agreement was scanned into 3Touch and attached to record. mm15 14:17 T-Sheet-- Draft Copy was scanned into 3Touch and attached to record. gb Signatures: Nury Pearson, Reg Reg gb Carolann Holder, DISHA RN jjr Krystle Matta mm15 Kathy Louise PA-C PADemetrius dt4 The chart was reviewed and I authenticate all verbal orders and agree with the evaluation and treatment provided.Attachments: 07:48 [facility] Payment Agreement mm15 14:17 T-Sheet-- Draft Copy gb Chart Complete MTDD
--- NOTE | 2016-08-11 08:44 | EDDOCDS ---
Physician Documentation [facility] Name: Samm Cantu Age: 56 yrs Sex: Male : 1960 Arrival Date: 08/09/2016 Time: 07:18 Bed Triage 1 Private MD: Sherri Quintero Disposition: 08/09/16 07:34 Discharged to Home/Self Care. Impression: Encounter for issue of repeat prescription - [place]. - Condition is Stable. - Discharge Instructions: Medicine Refill at the Emergency Department. - Prescriptions for [place] 7.5- 325 mg Oral Tablet - take 1 tablet by ORAL route every 6 hours As needed MDD: 4 tabs; 6 tablet. - Medication Reconciliation, Local Pharmacy Hours form. - Follow up: Emergency Department; When: As needed; Reason: Worsening of conditions. Follow up: Sherri Quintero; When: on 08/12/16, at your scheduled appointment; Reason: Wound/Symptom Recheck, Recheck today's complaints, Continuance of care. - Problem is new. - Symptoms are unchanged. Historical: - Allergies: Lyrica (Rash); amlodipine (tremor); PAROXETINE DERIVATIVES (tremor); - Home Meds: 1. [place] 7.5-325 mg Oral tab bid (Last dose: 08/08/2016) 2. Xanax 0.25 mg Oral tab 1 tab 3 times per day (Last dose: 08/08/2016) 3. blood pressure medication and antidepressant - PMHx: Anxiety; Hypertension; Sleep Apnea w/o CPAP; T11 crush injury; - PSHx: Rotator Cuff Repair- Right; Carpal Tunnel Repair- Left; - Social history: Smoking status: Patient uses tobacco products, current every day smoker. No barriers to communication noted, The patient speaks fluent [place]raltarian. - : The pt / caregiver states he / she is not on anticoagulants. Home medication list is obtained from the patient. - Exposure Risk Screening:: None identified. Vital Signs: 08/09 07:27 BP 144 / 95; Pulse 77; Resp 18; Temp 97.5(O); Pulse Ox 97% on R/A; Weight 90.72 kg / jjr 200 lbs (R); Height 6 ft. 0 in. (182.88 cm) (R); Pain 0/10; 07:27 Body Mass Index 27.12 (90.72 kg, 182.88 cm) loly MDM: 07:47 Financial registration complete. mm15 07:48 [facility] Payment Agreement was scanned into Yap and attached to record. mm15 14:17 T-Sheet-- Draft Copy was scanned into Yap and attached to record. gb Signatures: Nury Pearson, Reg Reg gb Carolann Holder, DISHA RN jjr Krystle Matta mm15 Kathy Louise PA-C PADemetrius dt4 The chart was reviewed and I authenticate all verbal orders and agree with the evaluation and treatment provided.Attachments: 07:48 [facility] Payment Agreement mm15 14:17 T-Sheet-- Draft Copy gb Chart Complete MTDD
--- NOTE | 2016-08-11 08:44 | EDDOCDS ---
Nurse's Notes [facility] Name: Samm Cantu Age: 56 yrs Sex: Male : 1960 Arrival Date: 08/09/2016 Time: 07:18 Bed Triage 1 Private MD: Sherri Quintero Diagnosis: Encounter for issue of repeat prescription-[place] Presentation: 08/09 07:22 Presenting complaint: Patient states: needs refill for [place] 7.5/325 mg, PCP Dr Leon salcido unavailable at this time. Adult Sepsis Screening: The patient does not have new or worsening altered mentation. Patient's respiratory rate is less than 22. Systolic blood pressure is greater than 100. Patient has a qSOFA score of 0- Negative Sepsis Screen. Suicide/Homicide risk assessment- the patient denies having any suicidal and/or homicidal ideations and does not present with any other emotional, behavioral or mental health complaints. Status: Patient is not a community service representative or dependent. Transition of care: patient was not received from another setting of care. 07:22 Acuity: SUSIE Level 5 jjr 07:22 Method Of Arrival: Walkin/Carried/Asstd jjr Triage Assessment: 07:29 General: Appears in no apparent distress, Behavior is appropriate for age. Pain: Denies jjr pain. HIV screening NA for this visit Offered previously. Historical: - Allergies: Lyrica (Rash); amlodipine (tremor); PAROXETINE DERIVATIVES (tremor); - Home Meds: 1. [place] 7.5-325 mg Oral tab bid (Last dose: 08/08/2016) 2. Xanax 0.25 mg Oral tab 1 tab 3 times per day (Last dose: 08/08/2016) 3. blood pressure medication and antidepressant - PMHx: Anxiety; Hypertension; Sleep Apnea w/o CPAP; T11 crush injury; - PSHx: Rotator Cuff Repair- Right; Carpal Tunnel Repair- Left; - Social history: Smoking status: Patient uses tobacco products, current every day smoker. No barriers to communication noted, The patient speaks fluent Lithuanian. - : The pt / caregiver states he / she is not on anticoagulants. Home medication list is obtained from the patient. - Exposure Risk Screening:: None identified. Screenin:42 Screening information is obtained from the patient. Fall risk: No risks identified. jjr Assistance ADL's: requires no assistance with activities of daily living. Abuse/DV Screen: The patient / caregiver reports he/she is: not in a situation that causes fear, pain or injury. Nutritional screening: No deficits noted. Advance Directives: There is no active DNR order. home support is adequate. Assessment: 07:42 General: Appears in no apparent distress, Behavior is appropriate for age, hands appear jjr shaky. Neurological: No deficits noted. Respiratory: No deficits noted. Derm: No deficits noted. Vital Signs: 07:27 BP 144 / 95; Pulse 77; Resp 18; Temp 97.5(O); Pulse Ox 97% on R/A; Weight 90.72 kg (R); jjr Height 6 ft. 0 in. (182.88 cm) (R); Pain 0/10; 07:27 Body Mass Index 27.12 (90.72 kg, 182.88 cm) jjr Vitals: 07:27 Log In Time: August 09, 2016 at 07:18. jjr ED Course: 07:19 Patient visited by Uli Wan Reg. pm4 07:19 Patient moved to Waiting pm4 07:20 Sherri Quintero is Private Physician. pm4 07:22 Patient moved to Triage 1 jjr 07:23 Triage Initiated jjr 07:25 [facility] dt4 07:25 Kelley Saldana MD is Attending Physician. dt4 07:25 Patient visited by Kathy Louise PA-C. dt4 07:33 Sherri Quintero is Referral Physician. dt4 07:42 The patient / caregiver is instructed regarding the plan of care and ED course. jjr 07:42 No IV's were initiated during this patient's visit. No procedures done that require jjr assistance. 07:48 [facility] Payment Agreement was scanned into Bookmate and attached to record. mm15 14:17 T-Sheet-- Draft Copy was scanned into Bookmate and attached to record. gb Order Results: There are currently no results for this order. Outcome: 07:34 Discharge ordered by Provider. dt4 07:43 Discharge Assessment: patient administered narcotics - no. The following High Risk jjr Discharge criteria are identified: None. Discharged to home ambulatory. Condition: stable. Discharge instructions given to patient, Instructed on discharge instructions, follow up and referral plans. medication usage, Demonstrated understanding of instructions, medications, Prescriptions given X 1. No special radiology studies were completed. Property sent home with patient. 07:43 Patient left the ED. jjr Signatures: Nury Pearson, Reg Reg gb Carolann Holder RN RN jjr Krystle Matta mm15 Kathy Louise, PA-Maru PA-C dt4 Uli Wan, Reg Reg pm4 Chart Complete MTDD
== END 2016-08-09 07:43 | disposition home or self-care (01) ==
LOC: M ED 07:18
DX: Z76.0 Encounter for issue of repeat prescription (principal); F41.9 Anxiety disorder, unspecified; I10 Essential (primary) hypertension; G47.30 Sleep apnea, unspecified; Z72.0 Tobacco use; Z79.899 Other long term (current) drug therapy; Z88.8 Allergy status to other drugs, medicaments and biological substances

== ENCOUNTER → 2016-11-11 | Outpatient (CLI) | payer OTHER ==
--- NOTE | 2016-11-13 12:43 | SLEEPCENT ---
DATE OF STUDY: 11/11/2016 ORDERED BY: Chandrika Dorman NP Nocturnal polysomnography was performed for evaluation of sleep apnea syndrome symptoms in this patient with a history of sleep apnea in the past who has accomplished significant weight loss. 7 hours and 29 minutes of data were reviewed. There were 392 minutes of sleep identified. Sleep latency was normal at 10 minutes. Rapid eye movement (REM) latency was normal at 85 minutes. Sleep architecture showed some fragmentation in mid study. There were four REM periods. Overall sleep efficiency was 88.4%. EKG showed a sinus rhythm with an average heart rate of 54 beats per minute. EEG showed normal wave forms for awake and sleep. There were 61 respiratory events identified of 10 seconds in duration or greater for an apnea-hypopnea index of 9.3. The events were purely obstructive, not exclusive to sleep stage, more frequent in the supine posture. Arousals from respiratory events occurred 6.7 times per hour and oxygen desaturations were seen into the 80s. Remaining measures of sleep physiology were normal with the exception of snoring throughout. IMPRESSION: Obstructive sleep apnea syndrome (G47.33), apnea-hypopnea index 9.3. RECOMMENDATION: The patient should be encouraged to return to the sleep disorder center for a retitration of pressure therapy. In the interim, alcohol and sedative avoidance should be practiced, and caution exercised during the operation of motor vehicles. cc: *Bernard Quintero MD
== END ==
LOC: M SLEEP 19:52
PROVIDERS: ATTEND Nurse Practitioner Adult Health
DX: G47.33 Obstructive sleep apnea (adult) (pediatric) (principal)

== ENCOUNTER → 2017-01-22 | Outpatient (REF) ==
--- NOTE | 2017-01-23 04:25 | REP ---
Clinical: Pain and disability. Technique: AP, lateral, coned-down views of the lumbosacral spine. Correlation MRI dated 03/22/2009. Findings: Lateral view demonstrates a moderate compression deformity at T11 which is relatively new when compared to MRI dated 2008 and requires correlation. Advanced multilevel degenerative changes are appreciated throughout the visualized thoracolumbar spine including osteophytosis, endplate sclerosis/irregularity and disc space narrowing, hypertrophic facet changes. No further acute fracture / compression injury or subluxation is appreciated. Impression: 1. Advanced multilevel degenerative changes noted throughout the visualized thoracolumbar spine. 2. Moderate compression fracture involving T11 of indeterminate age but relatively new when compared to MRI dated 2008. Signed by Martín Pierce MD 01/23/2017 04:17 A
== END ==
LOC: M SMT 10:35
PROVIDERS: ATTEND Internal Medicine
DX: M51.36 Other intervertebral disc degeneration, lumbar region (principal)

== ENCOUNTER → 2017-06-26 | Outpatient (REF) | payer OTHER ==
[2017-06-26 12:25] LABS: TESTOSTERONE 220 NG/DL (241-827)
[2017-06-26 12:27] LABS: PROSTATIC SPECIFIC AG MONITOR 1.05 NG/ML (< 4.0)
== END ==
LOC: M LABDRAW1 10:39
DX: R53.83 Other fatigue (principal)

== ENCOUNTER 2017-10-20 13:34 | Emergency (ER) | payer OTHER ==
[2017-10-20] MEDS: ALBUTEROL SULFATE 2.5 MG/0.5 ML INH NEB SOLN NEB (15:59)
== END 2017-10-20 16:38 | disposition home or self-care (01) ==
LOC: M ED 13:34
DX: J44.0 Chronic obstructive pulmonary disease with (acute) lower respiratory infection (principal); I10 Essential (primary) hypertension; K21.9 Gastro-esophageal reflux disease without esophagitis; M54.5 Low back pain; M54.6 Pain in thoracic spine; F41.9 Anxiety disorder, unspecified; F17.210 Nicotine dependence, cigarettes, uncomplicated; Z79.899 Other long term (current) drug therapy; Z79.51 Long term (current) use of inhaled steroids; Z88.8 Allergy status to other drugs, medicaments and biological substances
CPT/HCPCS: 71046

== ENCOUNTER → 2017-12-17 | Outpatient (CLI) | payer OTHER ==
[2017-12-17 10:57] LABS: HEMATOCRIT 49.7 % (42.0-52.0); HEMOGLOBIN 17.5 g/dl (13.5-17.5); MEAN CORPUSCULAR HEMOGLOBIN 33.3 pg (27.0-33.0); MEAN CORPUSCULAR HGB CONC 35.2 g/dl (32.0-36.5); MEAN CORPUSCULAR VOLUME 94.7 fl (80.0-96.0); PLATELET COUNT, AUTOMATED 210 10^3/uL (150-450); RED BLOOD COUNT 5.25 10^6/uL (4.30-6.10); RED CELL DISTRIBUTION WIDTH 14.2 % (11.5-14.5); WHITE BLOOD COUNT 7.5 10^3/uL (4.0-10.0)
[2017-12-17 11:33] LABS: ALBUMIN 3.8 GM/DL (3.2-5.2); ALBUMIN/GLOBULIN RATIO 1.09 (1.00-1.93); ALKALINE PHOSPHATASE 82 U/L (45-117); ALT/SGPT 118 U/L (12-78); ANION GAP 10 MEQ/L (8-16); AST/SGOT 367 U/L (7-37); BILIRUBIN,TOTAL 2.1 MG/DL (0.2-1.0); BLOOD UREA NITROGEN 7 MG/DL (7-18); CALCIUM LEVEL 9.1 MG/DL (8.5-10.1); CARBON DIOXIDE LEVEL 28 MEQ/L (21-32); CHLORIDE LEVEL 104 MEQ/L (98-107); CHOLESTEROL LEVEL 216 MG/DL (<200); CHOLESTEROL RISK RATIO 1.553 (<5); CREATININE FOR GFR 1.01 MG/DL (0.70-1.30); GLOMERULAR FILTRATION RATE > 60.0 (>56); GLUCOSE, FASTING 76 MG/DL (70-100); HDL CHOLESTEROL 139 MG/DL (>40); LDL CHOLESTEROL 67.4 MG/DL (<100); NON-HDL-C 77 MG/DL; POTASSIUM SERUM 4.5 MEQ/L (3.5-5.1); PROSTATIC SPECIFIC AG MONITOR 1.77 NG/ML (< 4.0); SODIUM LEVEL 142 MEQ/L (136-145); THYROID STIMULATING HORMONE 0.279 uIU/ML (0.358-3.740); TOTAL PROTEIN 7.3 GM/DL (6.4-8.2); TRIGLYCERIDES LEVEL 48 MG/DL (<150)
[2017-12-17 11:34] LABS: TESTOSTERONE 381 NG/DL (241-827)
[2017-12-17 11:45] LABS: HEPATITIS B SURFACE ANTIGEN NEGATIVE (NEGATIVE)
[2017-12-17 12:12] LABS: HEPATITIS B CORE ANTIBODY IGM NEGATIVE (NEGATIVE); HEPATITIS C VIRUS ABY INDEX 0.3 INDEX (<0.8)
[2017-12-17 12:14] LABS: HEPATITIS A ANTIBODY IGM NEGATIVE (NEGATIVE)
== END ==
LOC: M LAB 10:29
DX: E03.9 Hypothyroidism, unspecified (principal); I10 Essential (primary) hypertension; R53.83 Other fatigue
CPT/HCPCS: 84403

== ENCOUNTER → 2018-02-11 | Outpatient (CLI) | payer OTHER | LOC: M SLEEP 19:22 | DX: G47.33 Obstructive sleep apnea (adult) (pediatric) (principal) | CPT/HCPCS: 95811 ==

== ENCOUNTER → 2019-10-15 | Outpatient (CLI) | payer MEDICARE, OTHER, SELFPAY ==
[~2019-10-15] MED LIST: BREO1INH; CLON1TAB8 PO; METO1TAB87 PO; OMEP1CAP73 PO; TEST200I14; VENTAER INH; ZITHTAB PO
--- NOTE | 2019-10-15 11:40 | REP ---
REASON FOR EXAM: Tobacco abuse. COMPARISON: Multiple, the latest prior 07/10/2016. All priors have been reviewed. As per the protocol, only lung window images were sent to the read station for interpretation. There are no abnormal nodules, masses, or opacities. Limited evaluation of the mediastinum and pulmonary arpit shows no significant changes. Limited evaluation of the imaged upper abdomen and imaged osseous structures shows no changes. IMPRESSION: Lung-RADS category 1 negative exam. Electronically Signed by Bill Astudillo DO 10/15/2019 02:56 P
== END ==
LOC: M RAD 08:27
PROVIDERS: ATTEND Internal Medicine Pulmonary Disease
DX: Z12.2 Encounter for screening for malignant neoplasm of respiratory organs (principal); F17.218 Nicotine dependence, cigarettes, with other nicotine-induced disorders

== ENCOUNTER 2019-12-09 15:54 | Emergency (ER) | payer MEDICARE ==
[~2019-12-09] VITALS: Ht 182.9 cm; Wt 72.0 kg
[2019-12-09] MEDS ORDERED: MORPHINE 2 MG/ML 1ML VIAL (J2270) IV ONE (17:30)
[2019-12-09] MEDS ORDERED: NS 1,000 ML IV ONE (17:30)
[2019-12-09 18:12] LABS: BASO # 0.1 10^3/uL (0.0-0.2); BASO % 0.4 % (0.0-1.0); EOS # 0.1 10^3/uL (0.0-0.5); EOS % 0.4 % (0.0-3.0); HEMATOCRIT 29.3 % (42.0-52.0); HEMOGLOBIN 10.6 g/dl (13.5-17.5); LYMPH # 1.2 10^3/uL (1.5-5.0); LYMPH % 9.7 % (24.0-44.0); MEAN CORPUSCULAR HEMOGLOBIN 36.9 pg (27.0-33.0); MEAN CORPUSCULAR HGB CONC 36.2 g/dl (32.0-36.5); MEAN CORPUSCULAR VOLUME 102.1 fl (80.0-96.0); MONO # 0.9 10^3/uL (0.0-0.8); MONO % 7.4 % (0.0-5.0); NEUTROPHILS # 10.4 10^3/uL (1.5-8.5); NEUTROPHILS % 81.5 % (36.0-66.0); PLATELET COUNT, AUTOMATED 330 10^3/uL (150-450); RED BLOOD COUNT 2.87 10^6/uL (4.30-6.10); WHITE BLOOD COUNT 12.7 10^3/uL (4.0-10.0)
[2019-12-09] MEDS ORDERED: ISOVUE-370 76% 100ML VIAL As Ordered ONE (18:21)
[2019-12-09 18:41] LABS: ALBUMIN 2.7 GM/DL (3.2-5.2); BILIRUBIN,DIRECT 0.7 MG/DL (0.0-0.2); BILIRUBIN,TOTAL 1.2 MG/DL (0.2-1.0); TOTAL PROTEIN 6.5 GM/DL (6.4-8.2)
--- NOTE | 2019-12-09 19:15 | REPVR ---
PROCEDURE INFORMATION: Exam: CT Head Without Contrast Exam date and time: 12/09/2019 6:35 PM Age: 59 years old Clinical indication: Injury or trauma; Fall; Late effect from previous injury; Blunt trauma (contusions or hematomas); Additional info: Fall 2 wks ago, leg weakness, R side tender TECHNIQUE: Imaging protocol: Computed tomography of the head without contrast. Radiation optimization: All CT scans at this facility use at least one of these dose optimization techniques: automated exposure control; mA and/or kV adjustment per patient size (includes targeted exams where dose is matched to clinical indication); or iterative reconstruction. COMPARISON: CT Head without contrast 07/21/2016 12:02 PM FINDINGS: Brain: The brain demonstrates diffuse volume loss, atypical for age, progressed from prior. There is white matter hypodensity most consistent with chronic small vessel ischemic change. No visible evolving territorial infarct. No hemorrhage. Ventricles: The ventricles appear larger in the interval in keeping with the interval volume loss. Bones/joints: Unremarkable. No acute fracture. Sinuses: Trace sinus mucosal thickening. Mastoid air cells: Trace right mastoid effusion. Soft tissues: Unremarkable. IMPRESSION: 1. No acute intracranial abnormality seen. 2. Progressive cerebral and cerebellar volume loss since 2017, advanced for age. Electronically signed by: Saadia Anderson On 12/09/2019 19:15:20 PM
--- NOTE | 2019-12-09 19:19 | REPVR ---
PROCEDURE INFORMATION: Exam: CT Chest With Contrast Exam date and time: 12/09/2019 6:35 PM Age: 59 years old Clinical indication: Shortness of breath; Chest pain; Additional info: Fall, R flank pain, diff breathing TECHNIQUE: Imaging protocol: Computed tomography of the chest with intravenous contrast. Radiation optimization: All CT scans at this facility use at least one of these dose optimization techniques: automated exposure control; mA and/or kV adjustment per patient size (includes targeted exams where dose is matched to clinical indication); or iterative reconstruction. Contrast material: ISOVUE 370; Contrast volume: 75 ml; Contrast route: INTRAVENOUS (IV); COMPARISON: CT Chest without contrast 07/10/2016 8:01 AM FINDINGS: Lungs: Unremarkable. No consolidation. No masses. Pleural space: Unremarkable. No pneumothorax. No pleural effusion. Heart: Coronary vasculature calcifications. Aorta: Unremarkable. No aortic aneurysm. Lymph nodes: Unremarkable. No enlarged lymph nodes. Kidneys and ureters: Cyst measuring 2 cm in the midpole of the left kidney. Bones/joints: Acute fractures of the right lateral 8th, 9th, 10th, and 11th ribs. Acute fracture of the left anterior 3rd rib. Degenerative changes of the spine. Acute compression fracture of the superior endplate of T11 vertebra with the approximately 25% vertebral height loss. No retropulsion. Acute nondisplaced fracture of the left 1st and 2nd ribs. Acute nondisplaced fractures of the 1st, 2nd, 3rd and 4th right ribs. Soft tissues: Unremarkable. IMPRESSION: Multiple bilateral acute rib fractures. Acute fracture of the superior endplate of T11 vertebra with approximately 25% vertebral height loss. No retropulsion. Electronically signed by: Marv Angeles On 12/09/2019 19:18:46 PM
--- NOTE | 2019-12-09 19:38 | REPVR ---
PROCEDURE INFORMATION: Exam: CT Lumbar Spine Without Contrast Exam date and time: 12/09/2019 6:35 PM Age: 59 years old Clinical indication: Injury or trauma; Fall; Late effect from previous injury; Blunt trauma (contusions or hematomas); Additional info: Fall 2 wks ago, leg weakness TECHNIQUE: Imaging protocol: Computed tomography images of the lumbar spine without contrast. Radiation optimization: All CT scans at this facility use at least one of these dose optimization techniques: automated exposure control; mA and/or kV adjustment per patient size (includes targeted exams where dose is matched to clinical indication); or iterative reconstruction. COMPARISON: No relevant prior studies available. FINDINGS: Vertebrae: Wedge-shaped acute fracture of the T11 vertebra with approximately 25% vertebral height loss. No retropulsion. Grade 1 retrolisthesis of L4 over L5, L3 over L4 and L2 over L3. Spondylo lysis of the left L5 pedicle. Multiple prominent Schmorl's nodes. Lucency in the midline L4 spinous process (series 214, image 50), likely a nondisplaced fracture. Multilevel degenerative disc disease with neural foraminal narrowing. Sacrum/coccyx: Lucency in the right sacrum likely artifactual. Soft tissues: Unremarkable. IMPRESSION: Wedge-shaped acute fracture of T11 vertebra with approximately 25% vertebral height loss. No retropulsion. Lucency in the midline L4 spinous process, likely a non displaced acute fracture. Electronically signed by: Marv Angeles On 12/09/2019 19:38:44 PM
--- NOTE | 2019-12-09 19:46 | REPVR ---
PROCEDURE INFORMATION: Exam: CT Abdomen And Pelvis With Contrast Exam date and time: 12/09/2019 6:35 PM Age: 59 years old Clinical indication: Injury or trauma; Fall; Late effect from previous injury; Blunt; Generalized; Additional info: Fall 2 wks ago, leg weakness, R side tender TECHNIQUE: Imaging protocol: Computed tomography of the abdomen and pelvis with intravenous contrast. Radiation optimization: All CT scans at this facility use at least one of these dose optimization techniques: automated exposure control; mA and/or kV adjustment per patient size (includes targeted exams where dose is matched to clinical indication); or iterative reconstruction. Contrast material: ISOVUE 370; Contrast volume: 100 ml; Contrast route: INTRAVENOUS (IV); COMPARISON: No relevant prior studies available. FINDINGS: Mediastinal space: Small hiatal hernia. Liver: Normal. No mass. Gallbladder and bile ducts: Normal. No calcified stones. No ductal dilation. Pancreas: Normal. No ductal dilation. Spleen: Normal. No splenomegaly. Adrenals: Normal. No mass. Kidneys and ureters: For 2 cm cyst in the midpole of left kidney. 1.2 cm cyst in the lower pole of right kidney. Stomach and bowel: Unremarkable. No obstruction. No mucosal thickening. Appendix: No evidence of appendicitis. Intraperitoneal space: Unremarkable. No free air. No significant fluid collection. Vasculature: Unremarkable. No abdominal aortic aneurysm. Lymph nodes: Unremarkable. No enlarged lymph nodes. Bladder: Unremarkable as visualized. Reproductive: Unremarkable as visualized. Bones/joints: Acute wedge-shaped compression fracture of the T11 vertebra with no retropulsion. Degenerative changes of the spine. Lucency in the midline L4 spinous process representing acute nondisplaced fracture. Soft tissues: Unremarkable. IMPRESSION: No acute abdominal or pelvic abnormality. Acute wedge shaped compression fracture of T11 vertebra. Lucency in the midline L4 spinous process, likely a nondisplaced fracture. Electronically signed by: Marv Angeles On 12/09/2019 19:45:46 PM
[2019-12-09] MEDS ORDERED: MORPHINE 4 MG/ML 1ML VIAL/SYRINGE (J2270) IV ONE (20:00)
[2019-12-09 21:00] LABS: APPEARANCE, URINE CLEAR (CLEAR); BACTERIA, URINE AUTO NEGATIVE (NEGATIVE); BILIRUBIN, URINE AUTO NEGATIVE (NEGATIVE); BLOOD, URINE BLOOD NEGATIVE (NEGATIVE); COLOR, URINE YELLOW (YELLOW); GLUCOSE, URINE (UA) AUTO NEGATIVE (NEGATIVE); KETONE, URINE AUTO NEGATIVE (NEGATIVE); LEUKOCYTE ESTERASE, URINE AUTO NEGATIVE (NEGATIVE); NITRITE, URINE AUTO NEGATIVE (NEGATIVE); PROTEIN, URINE AUTO NEGATIVE (NEGATIVE); RBC, URINE AUTO 0 /HPF (0-3); SPECIFIC GRAVITY URINE AUTO 1.018 (1.002-1.035); SQUAMOUS EPITHELIAL CELL UR AU 0 /HPF (0-6); UROBILINOGEN, URINE AUTO 0.2 mg/dL (0.0-2.0); WBC, URINE AUTO 2 /HPF (0-3)
[2019-12-09 21:15] VITALS: BP 103/70
[2019-12-09] MEDS ORDERED: HYDR-3715 PO (21:15)
--- NOTE | 2019-12-09 23:00 | REP ---
FIVE VIEWS RIGHT RIBS/CHEST, 12/09/2019: INDICATION: Right chest trauma. FINDINGS: Mildly displaced fractures of the right 8th and 9th ribs are present without evidence of lung contusion or pneumothorax. The lungs are clear. There is no pleural effusion. IMPRESSION: Right 8th and 9th rib fractures without associated pneumothorax or lung contusion. Electronically Signed by Yosef Fraser DO 12/10/2019 08:43 A
--- NOTE | 2019-12-10 07:28 | ECGEPIP ---
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
== END 2019-12-09 21:38 | disposition home or self-care (01) ==
LOC: M ED 15:54
DX: S22.41XA Multiple fractures of ribs, right side, initial encounter for closed fracture (principal); S22.080A Wedge compression fracture of T11-T12 vertebra, initial encounter for closed fracture; S32.049A Unspecified fracture of fourth lumbar vertebra, initial encounter for closed fracture; W10.8XXA Fall (on) (from) other stairs and steps, initial encounter; Y92.098 Other place in other non-institutional residence as the place of occurrence of the external cause; I10 Essential (primary) hypertension; J44.9 Chronic obstructive pulmonary disease, unspecified; F17.200 Nicotine dependence, unspecified, uncomplicated; Z88.8 Allergy status to other drugs, medicaments and biological substances; Z79.899 Other long term (current) drug therapy
CPT/HCPCS: 70450; 71101; 71260; 72131; 74177; 80047; 80076; 81001; 83690; 85025; 93005; 96361; 96374; 96376; 99285; J2270; Q9967

== ENCOUNTER 2019-12-18 13:31 | Inpatient (IN) | payer MEDICARE ==
[~2019-12-18] VITALS: Ht 180.3 cm; Wt 79.3 kg
[~2019-12-18 13:31] MED LIST changes: +HYDR-3715 PO
[2019-12-18] MEDS ORDERED: NS 2,230 ML in IV 1 EA IV ONE (13:45)
[2019-12-18] MEDS: ALBUTEROL 90 MCG/ACT 8GM HFA INHALER INH SCH ×3 (13:53→14:56)
[2019-12-18 13:56] LABS: VENOUS BASE EXCESS -9.1 (-2.0-2.0); VENOUS HCO3 15.9 MEQ/L (23.0-27.0); VENOUS O2 SATURATION 48.4 % (60.0-80.0); VENOUS PARTIAL PRESSURE CO2 31.8 mmHg (38.0-50.0); VENOUS PARTIAL PRESSURE O2 28.8 mmHg (30.0-50.0); VENOUS PH 7.318 UNITS (7.330-7.430); VENOUS STANDARD HCO3 16.3 MEQ/L; VENOUS TOTAL CO2 16.9 MEQ/L (24.0-28.0)
[2019-12-18] MEDS ORDERED: fentaNYL 100 MCG/2 ML INJECTION (J3010) IV ONE (14:00)
[2019-12-18 14:08] LABS: HEMATOCRIT 31.4 % (42.0-52.0); HEMOGLOBIN 10.7 g/dl (13.5-17.5); MEAN CORPUSCULAR HEMOGLOBIN 36.1 pg (27.0-33.0); MEAN CORPUSCULAR HGB CONC 34.1 g/dl (32.0-36.5); MEAN CORPUSCULAR VOLUME 106.1 fl (80.0-96.0); PLATELET COUNT, AUTOMATED 345 10^3/uL (150-450); RED BLOOD COUNT 2.96 10^6/uL (4.30-6.10); WHITE BLOOD COUNT 24.7 10^3/uL (4.0-10.0)
[2019-12-18] MEDS ORDERED: cefTRIAXone SOD 2 GM in D5W MINI-BAG PLUS 50 ML IV ONE (14:15)
[2019-12-18 14:20] LABS: INR 1.19; PROTHROMBIN TIME 14.8 SECONDS (11.8-14.0)
[2019-12-18] MEDS ORDERED: POTASSIUM CHLORIDE 10 MEQ SR TABLET PO ONE (14:30)
[2019-12-18] MEDS ORDERED: KCL 10MEQ/100ML SWI (KRUN) 10 MEQ in IV 1 EA IV ONE (14:30)
[2019-12-18 14:31] LABS: LYMPHOCYTES 5 % (16-44); MONOCYTES 2 % (0-5); NEUTROPHILS 84 % (28-66)
[2019-12-18 14:32] LABS: ANISOCYTOSIS 2+; PLATELET ESTIMATE NORMAL (NORMAL)
[2019-12-18 14:52] LABS: ALBUMIN 2.4 GM/DL (3.2-5.2); ALT/SGPT 23 U/L (12-78); BILIRUBIN,DIRECT 0.7 MG/DL (0.0-0.2); BILIRUBIN,TOTAL 1.4 MG/DL (0.2-1.0); BLOOD UREA NITROGEN 9 MG/DL (7-18); CALCIUM LEVEL 9.4 MG/DL (8.5-10.1); CARBON DIOXIDE LEVEL 17 MEQ/L (21-32); CHLORIDE LEVEL 103 MEQ/L (98-107); CREATININE FOR GFR 1.15 MG/DL (0.70-1.30); ETHYL ALCOHOL (ETHANOL) 0.091 % (0.000-0.010); GLOMERULAR FILTRATION RATE > 60.0 (>56); GLUCOSE, FASTING 122 MG/DL (70-100); NT-PRO BNP 2981 PG/ML (<125); POTASSIUM SERUM 2.9 MEQ/L (3.5-5.1); SODIUM LEVEL 137 MEQ/L (136-145); THYROID STIMULATING HORMONE 0.679 uIU/ML (0.358-3.740); TOTAL PROTEIN 6.4 GM/DL (6.4-8.2)
--- NOTE | 2019-12-18 15:04 | REP ---
Clinical: Cough and dyspnea. Comparison: 12/09/2019. Findings: Subtle left lower lobe air space disease suggests early pneumonia / atelectasis. No effusion. No pneumothorax. Mediastinum and cardiac silhouette are normal. Subacute right rib fractures again identified. Impression: Findings suggest early left lower lobe atelectasis/pneumonia. Electronically Signed by Martín Pierce MD 12/18/2019 02:55 P
[2019-12-18] MEDS ORDERED: HYDR-3713 PO (15:10)
--- NOTE | 2019-12-18 15:10 | ECGEPIP ---
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
[2019-12-18] MEDS ORDERED: CITA20TA7 PO (15:11)
[2019-12-18] MEDS ORDERED: SYMB16INH INH (15:18)
--- NOTE | 2019-12-18 15:49 | HPEPDOC ---
General Date of Admission Dec 18, 2019 at 15:25 Date of Service: Dec 18, 2019 Chief Complaint The patient is a 59-year-old male Who presented to the hospital with complaints of shortness of breath/weakness History of Present Illness Patient is a 59-year-old male with a PMHx of HTN who presented to the ER complaints of shortness of breath/weakness. Patient was recently at the emergency room on 12/08 after he had fallen down a flight of stairs after he tripped over a rug. Upon arrival to emergency room, patient was found to have multiple rib fractures (R 1,2, 3, 4, 8, 9, 10, 11, L 1 ,2), T11 and L4 vertebral fracture. Patient was advised to remain in the hospital, however, he left AGAINST MEDICAL ADVICE and follow up with orthopedic surgery as an outpatient. Upon follow-up, he has been given a back brace and opiate medications to help alleviate pain. Patient presented again to the hospital because of worsening weakness, pain and cough. Patient reports that hes been experiencing severe pain on his ribs. Reports that it is a 9/10, sharp, occurring intermittently alleviated with pain medications and aggravated with movement. Patient does report an associated cough with clear/white sputum without any blood. Patient has not expense any fevers or chills at home. Denies any palpitations. Patient has denied any prior history of heart attacks or strokes. Patient reports nausea without vomiting. Denies abdominal pain, constipation, diarrhea, or urinary discomfort. Patient reports that over the course of 1 month. His appetite has been poor and has expressed 35 pound weight loss over one month duration. Home Medications Scheduled Budesonide/Formoterol (Symbicort 160-4.5 Mcg Inhaler) 6 Gm Hfa.aer.ad, 1 PUFF INH BID, (Reported) Citalopram Hydrobromide (Citalopram HBr) 20 Mg Tablet, 20 MG PO DAILY, (Reported) Metoprolol Tartrate (Metoprolol Tartrate) 25 Mg Tab, 25 MG PO DAILY, (Reported) Omeprazole (Omeprazole) 20 Mg Cap, 20 MG PO DAILY, (Reported) Scheduled PRN Albuterol Sulfate (Ventolin Hfa) 108 Mcg/Act Aer, 1 PUFF INH PRN PRN for SOB/WHEEZING, (Reported) Hydrocodone/Acetaminophen (Hydrocodone-Acetamin 5-325 mg) 1 Each Tablet, 1 TAB PO Q6H PRN for PAIN, (Reported) Allergies Coded Allergies: pregabalin (Verified Allergy, Intermediate, HIVES, 12/09/19) hives Past Medical History Medical History HTN Surgical History Right shoulder rotator cuff repair 2018 Family History - No history of malignancies Social History - Denies the use of illicit drugs; reports he is an active smoker for 20 years at 1-1.5 PPD; patient reports that he does consume alcohol and only drinks beer. 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 Review of Systems Other systems 10 point review of systems complete, all negative otherwise stated in HPI Vital Signs - Vitals: BP 121/71, HR 140, RR 18, Sat 98%RA, Temp 98.6F - General: Lying in bed, Speaking in full sentences, AAOx3 - HEENT: NC, AT, PERRLA - CVS: Tachycardic, +S1S2 - Lungs: Fair air entry bilaterally, there does not appear to be any appreciable rhonchi, crackles or wheezing - Abdomen: Soft, Non-distended, Non-tender - Extremities: No lower extremity edema, No calf tenderness - Neuro: No focal motor or sensory deficit - Skin: No visible rashes Laboratory Data Labs 24H Laboratory Tests 2 12/18/19 13:49: Neutrophils (%) (Auto) , Nucleated Red Blood Cells % (auto) 0.0, Neutrophils 84H, Band Neutrophils 9, Lymphocytes (Manual) 5L, Monocytes (Manual) 2, Anisocytosis 2+, Macrocytosis 2+, Platelet Estimate NORMAL, Prothrombin Time 14.8H, Prothromb Time International Ratio 1.19, Blood Gas Bicarbonate Standard 16.3, Venous Blood pH 7.318L, Venous Blood Partial Pressure CO2 31.8L, Venous Blood Partial Pressure O2 28.8L, Venous Blood Total Carbon Dioxide 16.9L, Venous Blood HCO3 15.9L, Venous Blood Oxygen Saturation 48.4L, Venous Blood Base Excess -9.1L, Anion Gap 17H, Glomerular Filtration Rate > 60.0, Calcium Level 9.4, Total Bilirubin 1.4H, Direct Bilirubin 0.7H, Aspartate Amino Transf (AST/SGOT) 30, Alanine Aminotransferase (ALT/SGPT) 23, Alkaline Phosphatase 134H, XT-Hhm-H-Type Natriuretic Peptide 2981H, Total Protein 6.4, Albumin 2.4L, Albumin/Globulin Ratio 0.6, Thyroid Stimulating Hormone (TSH) 0.679, Ethyl Alcohol Level 0.091H 12/18/19 13:54: POC Glucose (Misc Panel) 126H, POC Sodium (Misc Panel) 134L, POC Potassium (Misc Panel) 2.7*L, POC Chloride (Misc Panel) 99, POC Total CO2 (Misc Panel) 15.0L, POC Blood Urea Nitrogen (Misc Panel 8, POC Ionized Calcium (Misc Panel) 5.2, POC Creatinine (Misc Panel) 0.9, POC Hematocrit (Misc Panel) 33.0L 12/18/19 13:56: POC Troponin I (Misc) 0.01 12/18/19 14:10: POC Lactate (Misc Panel) 9.42*H CBC/BMP Laboratory Tests 12/18/19 13:49 Microbiology Microbiology 12/18/19 Respiratory Virus Panel (PCR) ([facility]) - Final, Complete 12/18/19 Blood Culture, Received Pending 12/18/19 Blood Culture, Received Pending Plan / VTE VTE Prophylaxis Ordered?: Yes Plan Plan Shortness of breath/cough - possibly 2/2 Pneumonia - Patient presented to the hospital with weakness, shortness of breath and cough - Patient was recently at the hospital. 12/08 after he had fallen down a flight of stairs - Patient is afebrile; tachycardic but blood pressure has normalized - Leukocytosis with bandemia and lactic acidosis - Blood cultures as respiratory panel pending - CXR 12/17: Evidence of subtle left lower lobe infiltrate - Will check sputum cultures / procalcitonin / MRSA screen - Will provide Ceftriaxone and Doxycycline (Day #1) Lactic acidosis - Lactic acid noted to be 9 on arrival - Will repeat lactic acid within 4 hours - c/w aggressive IV fluid hydration Tachycardia - likely 2/2 sinus tachycardia, unlikely atrial fibrillation - Currently patient denies typical chest pain - EKG reviewed and does reveal P waves; unclear if this is atrial fibrillation versus sinus tachycardia - Troponin first set negative; will continue to trend - TSH within normal limits - Will continue with telemetry monitoring - Will get ECHO - Will continue with IV fluid hydration and repeat EKG later today; will hold off on beta tristin therapy at this time Multiple fractures - 2/2 mechanical fall on 12/08 - XR ribs 12/08: Right 8th and 9th rib fractures without associated pneumothorax or lung contusion. - Lumbar CT 12/08: Wedge-shaped acute fracture of T11 vertebra with approximately 25% vertebral height loss. No retropulsion. Lucency in the midline L4 spinous process, likely a non-displaced acute fracture. - CT head 12/08: 1. No acute intracranial abnormality seen. 2. Progressive cerebral and cerebellar volume loss since 2017, advanced for age. - CT abdomen / pelvis 12/08: No acute abdominal or pelvic abnormality. Acute wedge shaped compression fracture of T11 vertebra. Lucency in the midline L4 spinous process, likely a nondisplaced fracture. - CT chest 12/08: Multiple bilateral acute rib fractures. Acute fracture of the superior endplate of T11 vertebra with approximately 25% vertebral height loss. No retropulsion. - Will start incentive spirometery and acapella - Will start pain control with morphine Macrocytic anemia - possibly 2/2 alcohol consumption - No evidence of bleeding - Will continue to monitor Hypokalemia - Has been supplemented the emergency room with oral and IV routes Hyponatremia - likely 2/2 hypotonic hypovolemic etiology - Will continue with IV fluid hydration Suspected alcohol dependence - Patient reports that he has only consumed less than 1 beer yesterday, however, his alcohol level this morning was noted to be elevated - Will start thiamine, folate and multivitamins - Will start CIWA protocol HTN - Patient takes metoprolol as an outpatient - Will continue with holding parameters Chronic COPD - No evidence of exacerbation - c/w inhaled therapy as ordered Mood disorder - c/w Citalopram GERD - c/w Omeprazole DVT prophylaxis - Will start Lovenox MELBA WU MD Dec 18, 2019 15:49
[2019-12-18] MEDS ORDERED: LEVALBUTEROL 1.25 MG/0.5 ML CONCENTRATE NEB INH PRN (16:00)
[2019-12-18 16:35] VITALS: BP 122/71
[2019-12-18] MEDS: METOPROLOL TART 25 MG TABLET PO SCH (16:54)
[2019-12-18] MEDS: MULTIVITAMINS/MINERALS THERAP 1 TAB PO SCH (16:55)
[2019-12-18] MEDS: FOLIC ACID 1 MG TAB PO SCH (16:55)
[2019-12-18] MEDS: THIAMINE 100 MG TAB PO SCH (16:55)
[2019-12-18] MEDS: CitaloPRAM (CeleXA) 20 MG TAB PO SCH (16:55)
[2019-12-18] MEDS: DOXYCYCLINE HYCLATE 100 MG in D5W MINI-BAG PLUS 100 ML IV SCH (16:55)
[2019-12-18] MEDS: OMEPRAZOLE 20 MG CAP PO SCH (16:55)
[2019-12-18] MEDS: NS 1,000 ML IV SCH (16:55)
[2019-12-18 16:58] VITALS: BP 122/71
--- NOTE | 2019-12-18 17:03 | ECGEPIP ---
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
[2019-12-18 17:13] LABS: HEMOGLOBIN A1c 4.3 %
[2019-12-18 17:54] LABS: BLOOD UREA NITROGEN 9 MG/DL (7-18); CALCIUM LEVEL 8.5 MG/DL (8.5-10.1); CARBON DIOXIDE LEVEL 21 MEQ/L (21-32); CHLORIDE LEVEL 104 MEQ/L (98-107); CREATININE FOR GFR 0.95 MG/DL (0.70-1.30); GLOMERULAR FILTRATION RATE > 60.0 (>56); GLUCOSE, FASTING 121 MG/DL (70-100); POTASSIUM SERUM 3.6 MEQ/L (3.5-5.1); SODIUM LEVEL 137 MEQ/L (136-145)
[2019-12-18 18:44] LABS: TROPONIN I 0.02 NG/ML (< 0.10)
[2019-12-18 19:40] VITALS: BP 112/73
[2019-12-18] MEDS: SYMBICORT 160/4.5MCG INHALER 6GM INH SCH (19:44)
[2019-12-18 20:00] VITALS: BP 112/73
[2019-12-18] MEDS: ENOXAPARIN 40MG/0.4ML SYRINGE (J1650 PER 10MG) SC SCH (20:27)
[2019-12-18] MEDS: ACETAMINOPHEN TAB 650MG DOSE (2X325MG) PO PRN (20:28)
[2019-12-19] VITALS (16 sets, daily range): BP systolic 90–112; BP diastolic 54–70
[2019-12-19 01:50] LABS: CK-MB VALUE MASS < 1.0 NG/ML (<3.6); CPK CREATINE PHOSPHOKINASE 14 U/L (39-308); MB/CK RELATIVE INDEX 7.14 (< OR =4); TROPONIN I < 0.02 NG/ML (< 0.10)
[2019-12-19] MEDS: NS 1,000 ML IV SCH ×3 (02:25→20:03)
[2019-12-19] MEDS: DOXYCYCLINE HYCLATE 100 MG in D5W MINI-BAG PLUS 100 ML IV SCH ×2 (05:13→16:51)
[2019-12-19] MEDS: ACETAMINOPHEN TAB 650MG DOSE (2X325MG) PO PRN ×3 (05:14→14:04)
[2019-12-19 05:41] LABS: BASO # 0.1 10^3/uL (0.0-0.2); BASO % 0.2 % (0.0-1.0); HEMATOCRIT 26.6 % (42.0-52.0); HEMOGLOBIN 9.1 g/dl (13.5-17.5); LYMPH # 1.4 10^3/uL (1.5-5.0); MEAN CORPUSCULAR HEMOGLOBIN 36.4 pg (27.0-33.0); MEAN CORPUSCULAR HGB CONC 34.2 g/dl (32.0-36.5); MEAN CORPUSCULAR VOLUME 106.4 fl (80.0-96.0); MONO # 0.7 10^3/uL (0.0-0.8); MONO % 2.9 % (0.0-5.0); NEUTROPHILS # 21.6 10^3/uL (1.5-8.5); NEUTROPHILS % 90.2 % (36.0-66.0); PLATELET COUNT, AUTOMATED 252 10^3/uL (150-450); WHITE BLOOD COUNT 23.9 10^3/uL (4.0-10.0)
[2019-12-19 05:59] LABS: BLOOD UREA NITROGEN 15 MG/DL (7-18); CALCIUM LEVEL 7.6 MG/DL (8.5-10.1); CARBON DIOXIDE LEVEL 20 MEQ/L (21-32); CHLORIDE LEVEL 108 MEQ/L (98-107); CREATININE FOR GFR 0.91 MG/DL (0.70-1.30); GLOMERULAR FILTRATION RATE > 60.0 (>56); GLUCOSE, FASTING 116 MG/DL (70-100); MAGNESIUM LEVEL 0.8 MG/DL (1.8-2.4); POTASSIUM SERUM 3.9 MEQ/L (3.5-5.1); SODIUM LEVEL 139 MEQ/L (136-145)
[2019-12-19] MEDS ORDERED: PILL CUTTER 1 EACH XX PRN (06:15)
[2019-12-19] MEDS ORDERED: MAG SULF 1GM/100ML (MAG RUN) 1 GM in IV 1 EA IV ONE (06:15)
[2019-12-19] MEDS: SYMBICORT 160/4.5MCG INHALER 6GM INH SCH ×2 (07:17→18:09)
[2019-12-19] MEDS: METOPROLOL TART 25 MG TABLET PO SCH (09:00)
[2019-12-19] MEDS: OMEPRAZOLE 20 MG CAP PO SCH (09:03)
[2019-12-19] MEDS: MULTIVITAMINS/MINERALS THERAP 1 TAB PO SCH (09:04)
[2019-12-19] MEDS: MAGNESIUM GLUCONATE 500 MG TAB PO SCH ×2 (09:04→20:02)
[2019-12-19] MEDS: THIAMINE 100 MG TAB PO SCH (09:04)
[2019-12-19] MEDS: FOLIC ACID 1 MG TAB PO SCH (09:04)
[2019-12-19] MEDS: CitaloPRAM (CeleXA) 20 MG TAB PO SCH (09:04)
[2019-12-19] MEDS: cefTRIAXone SOD 1 GM in D5W MINI-BAG PLUS 50 ML IV SCH (14:04)
--- NOTE | 2019-12-19 14:16 | IPNPDOC ---
Text Note Date of Service The patient was seen on 12/19/19. NOTE Subjective: -Reports that he has rib pain for a few weeks now that is unchanged this morning -Otherwise sitting up, conversational Objective Vitals: HDS, afebrile General: Speaking in full sentences, AAOx3, NAD HEENT: NCAT, PERRLA, EOMI, MMM CVS: RRR, no mrg Lungs: Crackles in posterior left field, clear right Abdomen: Soft, Non-distended, Non-tender Extremities: No lower extremity edema, No calf tenderness Neuro: No focal motor or sensory deficit Skin: No visible rashes, scattered scabby resolving lesions bilateral arms Labs: WBC 23.9 hgb 9.1 Platelets 252 na 139 Cr 0.91 lactate 5.1 Microbiology 12/18/19 Respiratory Virus Panel (PCR) ([facility]) - Final, Complete 12/18/19 Blood Culture, Received Pending 12/18/19 Blood Culture, Received Pending 12/18/19 Sputum Culture, gram stain with GPCs in clusters and GPRs Assessment: 59 yo M who recently sustained multiple rib fractures (R 1,2, 3, 4, 8, 9, 10, 11, L 1,2), T11 and L4 vertebral fracture after falling down a flight of stairs and seen by ortho as an outpatient and recently in a back brace and pain meds who returned to the ED with weakness, pain and cough and diagnosed with a LLL PNA. CAP - CXR 12/17: Evidence of subtle left lower lobe infiltrate - f/u sputum cultures / procalcitonin - Ceftriaxone and Doxycycline (Day #2) Lactic acidosis - Lactic acid noted to be 9 on arrival, downtrended however still elevated. Recheck lactate - c/w IV fluid hydration Tachycardia: resolved - EKG showed with sinus tach - Troponin wnl - TSH within normal limits - Will continue with telemetry monitoring - continue with IV fluid hydration - continue home metop Multiple fractures - 2/2 mechanical fall on 12/08 - XR ribs 12/08: Right 8th and 9th rib fractures without associated pneumothorax or lung contusion. - Lumbar CT 12/08: Wedge-shaped acute fracture of T11 vertebra with approximately 25% vertebral height loss. No retropulsion. Lucency in the midline L4 spinous process, likely a non-displaced acute fracture. - CT head 12/08: 1. No acute intracranial abnormality seen. 2. Progressive cerebral and cerebellar volume loss since 2017, advanced for age. - CT abdomen / pelvis 12/08: No acute abdominal or pelvic abnormality. Acute wedge shaped compression fracture of T11 vertebra. Lucency in the midline L4 spinous process, likely a nondisplaced fracture. - CT chest 12/08: Multiple bilateral acute rib fractures. Acute fracture of the superior endplate of T11 vertebra with approximately 25% vertebral height loss. No retropulsion. - Incentive spirometery and acapella -Morphine PRN for severe pain, otherwise tylenol Macrocytic anemia - possibly 2/2 alcohol consumption - No evidence of bleeding - Will continue to monitor Hypokalemia: repleted Hyponatremia - 2/2 hypotonic hypovolemic etiology - Will continue with IV fluid hydration Suspected alcohol dependence -Patient reported that he consumed less than 1 beer yesterday, however, his alcohol level this morning was noted to be elevated -continue thiamine, folate and multivitamins -continue CIWA protocol HTN - continue metop - Will continue with holding parameters Chronic COPD - No evidence of exacerbation - c/w mdi therapy Mood disorder - c/w Citalopram GERD - c/w Omeprazole DVT prophylaxis - Lovenox VS,Fishbone, I+O VS, Fishbone, I+O Laboratory Tests 12/18/19 13:49 12/18/19 16:42 12/19/19 05:26 Vital Signs Date Time Temp Pulse Resp B/P (MAP) Pulse Ox O2 Delivery O2 Flow Rate FiO2 12/19/19 12:17 88 98/56 12/19/19 12:08 97.5 20 99 Room Air I&O- Last 24 Hours up to 6 AM 12/19/19 06:00 Intake Total 2340 ml Output Total 250 ml Balance 2090 ml ALEXSANDER GAY MD Dec 19, 2019 14:16
[2019-12-19] MEDS: LIDOCAINE 5% (LIDODERM) PATCH TD SCH (15:02)
[2019-12-19] MEDS: LORazepam 2 MG TAB PO PRN (17:01)
[2019-12-19] MEDS ORDERED: NS 1,000 ML IV ONE (20:00)
[2019-12-19] MEDS: ENOXAPARIN 40MG/0.4ML SYRINGE (J1650 PER 10MG) SC SCH (20:02)
[2019-12-19] MEDS: **NOTE PATIENT COMMENT** MISC XX SCH (20:03)
[2019-12-19] MEDS: MORPHINE 2 MG/ML 1ML VIAL (J2270) IV PRN (22:27)
[2019-12-20] VITALS (12 sets, daily range): BP systolic 97–132; BP diastolic 52–83
[2019-12-20] MEDS: MORPHINE 2 MG/ML 1ML VIAL (J2270) IV PRN ×3 (02:29→20:26)
[2019-12-20] MEDS: NS 1,000 ML IV SCH ×3 (05:07→22:04)
[2019-12-20 05:08] LABS: BASO % 0.2 % (0.0-1.0); EOS % 0.3 % (0.0-3.0); HEMATOCRIT 21.8 % (42.0-52.0); HEMOGLOBIN 7.5 g/dl (13.5-17.5); LYMPH # 1.1 10^3/uL (1.5-5.0); LYMPH % 11.4 % (24.0-44.0); MEAN CORPUSCULAR HEMOGLOBIN 36.4 pg (27.0-33.0); MEAN CORPUSCULAR HGB CONC 34.4 g/dl (32.0-36.5); MEAN CORPUSCULAR VOLUME 105.8 fl (80.0-96.0); MONO # 0.4 10^3/uL (0.0-0.8); MONO % 4.7 % (0.0-5.0); NEUTROPHILS # 7.8 10^3/uL (1.5-8.5); NEUTROPHILS % 82.8 % (36.0-66.0); PLATELET COUNT, AUTOMATED 205 10^3/uL (150-450); RED BLOOD COUNT 2.06 10^6/uL (4.30-6.10); WHITE BLOOD COUNT 9.4 10^3/uL (4.0-10.0)
[2019-12-20] MEDS: DOXYCYCLINE HYCLATE 100 MG in D5W MINI-BAG PLUS 100 ML IV SCH ×2 (05:11→17:00)
[2019-12-20] MEDS: LORazepam 2 MG TAB PO PRN ×3 (05:11→19:21)
[2019-12-20 05:28] LABS: BLOOD UREA NITROGEN 12 MG/DL (7-18); CARBON DIOXIDE LEVEL 22 MEQ/L (21-32); CHLORIDE LEVEL 110 MEQ/L (98-107); CREATININE FOR GFR 0.66 MG/DL (0.70-1.30); GLOMERULAR FILTRATION RATE > 60.0 (>56); GLUCOSE, FASTING 79 MG/DL (70-100); POTASSIUM SERUM 3.6 MEQ/L (3.5-5.1); SODIUM LEVEL 139 MEQ/L (136-145)
[2019-12-20] MEDS ORDERED: POTASSIUM CHLORIDE 10 MEQ SR TABLET PO ONE (07:00)
[2019-12-20] MEDS ORDERED: MAG SULF 1GM/100ML (MAG RUN) 1 GM in IV 1 EA IV ONE (07:00)
[2019-12-20 08:04] LABS: FERRITIN 1145 NG/ML (26-388); IRON (FE) 48 UG/DL (65-175); PERCENT SATURATION 46.2 % (19.7-50.0); TOTAL IRON BINDING CAPACITY 104 UG/DL (250-450)
[2019-12-20] MEDS: METOPROLOL TART 25 MG TABLET PO SCH (09:00)
[2019-12-20] MEDS: SYMBICORT 160/4.5MCG INHALER 6GM INH SCH ×2 (09:07→19:53)
[2019-12-20] MEDS: THIAMINE 100 MG TAB PO SCH (10:10)
[2019-12-20] MEDS: MULTIVITAMINS/MINERALS THERAP 1 TAB PO SCH (10:10)
[2019-12-20] MEDS: FOLIC ACID 1 MG TAB PO SCH (10:10)
[2019-12-20] MEDS: MAGNESIUM GLUCONATE 500 MG TAB PO SCH ×2 (10:10→20:24)
[2019-12-20] MEDS: OMEPRAZOLE 20 MG CAP PO SCH (10:11)
[2019-12-20] MEDS: LIDOCAINE 5% (LIDODERM) PATCH TD SCH (10:13)
[2019-12-20] MEDS: CitaloPRAM (CeleXA) 20 MG TAB PO SCH (10:18)
[2019-12-20 10:24] LABS: FOLATE 7.8 NG/ML; VITAMIN B12 LEVEL 734 PG/ML
[2019-12-20] MEDS: cefTRIAXone SOD 1 GM in D5W MINI-BAG PLUS 50 ML IV SCH (15:41)
--- NOTE | 2019-12-20 16:12 | IPNPDOC ---
Text Note Date of Service The patient was seen on 12/20/19. NOTE Subjective: -had 1L bolus overnight, continued on 125cc/hr -got morphine overnight for rib pain. This morning, is up sitting up in bed, cooperative with PT while I was in the room Objective Vitals: HDS, afebrile General: Speaking in full sentences, AAOx3, NAD HEENT: NCAT, PERRLA, EOMI, MMM CVS: RRR, no mrg Lungs: Persistent crackles in posterior left field, clear right Abdomen: Soft, Non-distended, Non-tender Extremities: No lower extremity edema, No calf tenderness Neuro: No focal motor or sensory deficit Skin: No visible rashes, scattered scabby resolving lesions bilateral arms Labs: WBC 9.4 hgb 7.5 Platelets 205 na 139 K 3.6 Cr 0.66 lactate 2.3 Microbiology 12/18/19 Respiratory Virus Panel (PCR) ([facility]) - Final, Complete 12/18/19 Blood Culture, Received Pending 12/18/19 Blood Culture, Received Pending 12/18/19 Sputum Culture, gram stain with GPCs in clusters and GPRs Assessment: 59 yo M who recently sustained multiple rib fractures (R 1,2, 3, 4, 8, 9, 10, 11, L 1,2), T11 and L4 vertebral fracture after falling down a flight of stairs and seen by ortho as an outpatient and recently in a back brace and pain meds who returned to the ED with weakness, pain and cough and diagnosed with a LLL PNA. CAP - CXR 12/17: Evidence of subtle left lower lobe infiltrate - f/u sputum cultures / procalcitonin - Ceftriaxone and Doxycycline (Day #3) Lactic acidosis - Lactic acid noted to be 9 on arrival, downtrended - c/w IV fluid hydration Tachycardia: resolved - EKG showed with sinus tach - Troponin wnl - TSH within normal limits - Will continue with telemetry monitoring - continue with IV fluid hydration - continue home metop Multiple fractures - 2/2 mechanical fall on 12/08 - XR ribs 12/08: Right 8th and 9th rib fractures without associated pneumothorax or lung contusion. - Lumbar CT 12/08: Wedge-shaped acute fracture of T11 vertebra with approximately 25% vertebral height loss. No retropulsion. Lucency in the midline L4 spinous process, likely a non-displaced acute fracture. - CT head 12/08: 1. No acute intracranial abnormality seen. 2. Progressive cerebral and cerebellar volume loss since 2017, advanced for age. - CT abdomen / pelvis 12/08: No acute abdominal or pelvic abnormality. Acute wedge shaped compression fracture of T11 vertebra. Lucency in the midline L4 spinous process, likely a nondisplaced fracture. - CT chest 12/08: Multiple bilateral acute rib fractures. Acute fracture of the superior endplate of T11 vertebra with approximately 25% vertebral height loss. No retropulsion. - Incentive spirometry and acapella -Morphine PRN for severe pain, otherwise tylenol and lidoderm patch Macrocytic anemia - possibly 2/2 alcohol consumption - to give 1u pRBCs this AM -Fe studies --> fe, ferritin, TIBC, retic count - No evidence of bleeding - Will continue to monitor -on thiamine/folate repletion for alcohol use disorder Hypokalemia: repleted Hyponatremia - 2/2 hypotonic hypovolemic etiology. Improved - Will continue with IV fluid hydration Suspected alcohol dependence -Patient reported that he consumed less than 1 beer yesterday, however, his alcohol level this morning was noted to be elevated -continue thiamine, folate and multivitamins -continue CIWA protocol HTN - continue metop - Will continue with holding parameters Chronic COPD - No evidence of exacerbation - c/w mdi therapy Mood disorder - c/w Citalopram GERD - c/w Omeprazole DVT prophylaxis - Lovenox VS,Fishbone, I+O VS, Fishbone, I+O Laboratory Tests 12/20/19 04:12 Vital Signs Date Time Temp Pulse Resp B/P (MAP) Pulse Ox O2 Delivery O2 Flow Rate FiO2 12/20/19 15:30 97.8 64 16 128/74 99 Room Air I&O- Last 24 Hours up to 6 AM 12/20/19 06:00 Intake Total 5230 ml Output Total 350 ml Balance 4880 ml ALEXSANDER GAY MD Dec 20, 2019 16:12
[2019-12-20] MEDS: ENOXAPARIN 40MG/0.4ML SYRINGE (J1650 PER 10MG) SC SCH (20:24)
[2019-12-20] MEDS: **NOTE PATIENT COMMENT** MISC XX SCH (20:25)
[2019-12-20] MEDS ORDERED: FUROSEMIDE 40MG/4ML VIAL (J1940) IV ONE (21:15)
[2019-12-20] MEDS: LORazepam 2 MG/ML VIAL IV SCH (22:04)
[2019-12-21] VITALS (10 sets, daily range): BP systolic 103–136; BP diastolic 44–84
[2019-12-21] MEDS: MORPHINE 2 MG/ML 1ML VIAL (J2270) IV PRN ×3 (00:02→20:34)
[2019-12-21] MEDS: LORazepam 2 MG TAB PO PRN ×3 (00:35→20:52)
[2019-12-21] MEDS: LORazepam 2 MG/ML VIAL IV SCH ×2 (01:24→06:00)
[2019-12-21] MEDS: DOXYCYCLINE HYCLATE 100 MG in D5W MINI-BAG PLUS 100 ML IV SCH ×2 (04:51→17:32)
[2019-12-21 05:47] LABS: HEMATOCRIT 23.8 % (42.0-52.0); HEMOGLOBIN 8.1 g/dl (13.5-17.5); MEAN CORPUSCULAR HEMOGLOBIN 35.4 pg (27.0-33.0); MEAN CORPUSCULAR VOLUME 103.9 fl (80.0-96.0); PLATELET COUNT, AUTOMATED 185 10^3/uL (150-450); RED BLOOD COUNT 2.29 10^6/uL (4.30-6.10); WHITE BLOOD COUNT 6.1 10^3/uL (4.0-10.0)
[2019-12-21 06:22] LABS: BLOOD UREA NITROGEN 5 MG/DL (7-18); CALCIUM LEVEL 7.1 MG/DL (8.5-10.1); CARBON DIOXIDE LEVEL 23 MEQ/L (21-32); CHLORIDE LEVEL 108 MEQ/L (98-107); CREATININE FOR GFR 0.51 MG/DL (0.70-1.30); GLOMERULAR FILTRATION RATE > 60.0 (>56); GLUCOSE, FASTING 87 MG/DL (70-100); MAGNESIUM LEVEL 1.1 MG/DL (1.8-2.4); POTASSIUM SERUM 3.1 MEQ/L (3.5-5.1); SODIUM LEVEL 135 MEQ/L (136-145)
[2019-12-21 06:30] LABS: EOSINOPHILS 2 % (0-3); LYMPHOCYTES 22 % (16-44); MONOCYTES 7 % (0-5); NEUTROPHILS 66 % (28-66)
[2019-12-21 06:31] LABS: PLATELET ESTIMATE NORMAL (NORMAL)
[2019-12-21] MEDS: SYMBICORT 160/4.5MCG INHALER 6GM INH SCH ×2 (07:23→19:48)
[2019-12-21] MEDS: NS 1,000 ML IV SCH ×2 (07:41→21:30)
[2019-12-21] MEDS ORDERED: MAG SULF 1GM/100ML (MAG RUN) 1 GM in IV 1 EA IV ONE (09:00)
[2019-12-21] MEDS: FOLIC ACID 1 MG TAB PO SCH (09:00)
[2019-12-21] MEDS: METOPROLOL TART 25 MG TABLET PO SCH (10:00)
[2019-12-21] MEDS: LIDOCAINE 5% (LIDODERM) PATCH TD SCH (10:00)
[2019-12-21] MEDS: MAGNESIUM OXIDE 400 MG TAB (MAG-OX) PO SCH ×2 (10:00→20:34)
[2019-12-21] MEDS: OMEPRAZOLE 20 MG CAP PO SCH (10:01)
[2019-12-21] MEDS: THIAMINE 100 MG TAB PO SCH (10:01)
[2019-12-21] MEDS: POTASSIUM CHLORIDE 10 MEQ SR TABLET PO SCH ×2 (10:01→12:18)
[2019-12-21] MEDS: MULTIVITAMINS/MINERALS THERAP 1 TAB PO SCH (10:01)
[2019-12-21] MEDS: CitaloPRAM (CeleXA) 20 MG TAB PO SCH (10:01)
--- NOTE | 2019-12-21 10:20 | ECHO ---
DATE OF STUDY: 12/20/2019 DATE OF : 1960 AGE: 59 GENDER: Male HEIGHT: 71 inches WEIGHT: 163 pounds BODY SURFACE AREA: 1.93 m2 INPATIENT: U Room 3214 REFERRING PHYSICIAN: Dr. Ezra George INDICATION: Abnormal EKG. MEASUREMENTS: 2-D Measurements: RV: 3.7 cm LV: 5.2 cm Septum: 1.1 cm Posterior wall: 1.1 cm Aortic root: 3.7 cm LA: 3.9 cm LVEF: 65% Doppler Measurements: AV: 0.98 m/sec LVOT: 0.8 m/sec LVOT diameter: 2.0 cm MV: E 66, A 79, EA ratio 0.8 Early mitral deceleration time: 204 ms E prime: 7.7, A prime medial: 10, E prime lateral: 6 Average E/E prime ratio: 9.6/PCWP 13.8 mmHg PV: 0.9 m/sec Pulmonary artery acceleration time: 140 ms RVSP: 27 mmHg IVC: 2.3 cm COMMENTS: Normal sinus rhythm without intraventricular conduction disturbance. M-mode and two-dimensional echocardiography was performed with pulsed, continuous wave, color flow and tissue Doppler studies. Normal left ventricular size, wall thickness and wall motion. Left atrial size upper limits of normal with grade 1 LV diastolic dysfunction but currently normal estimated mean left atrial pressure. Normal right heart chamber sizes and motion and estimated pulmonary arterial pressure. IVC slightly dilated with normal respiratory collapse against an elevated central venous pressure at this time. Normal aortic dimensions. Normal-appearing aortic valve with normal cusp separation and trace aortic insufficiency. Normal-appearing mitral valve with very mild mitral insufficiency. Normal-appearing tricuspid valve with very mild insufficiency. No apparent intracardiac mass or pericardial effusion.
[2019-12-21] MEDS ORDERED: MORPHINE 2 MG/ML 1ML VIAL (J2270) IV PRN (11:00)
[2019-12-21 11:19] LABS: ALBUMIN 1.7 GM/DL (3.2-5.2); ALT/SGPT 18 U/L (12-78); BILIRUBIN,TOTAL 1.1 MG/DL (0.2-1.0); TOTAL PROTEIN 4.7 GM/DL (6.4-8.2)
[2019-12-21] MEDS: ACETAMINOPHEN TAB 650MG DOSE (2X325MG) PO SCH ×2 (12:18→17:32)
[2019-12-21] MEDS: cefTRIAXone SOD 1 GM in D5W MINI-BAG PLUS 50 ML IV SCH (15:13)
[2019-12-21] MEDS: ENOXAPARIN 40MG/0.4ML SYRINGE (J1650 PER 10MG) SC SCH (20:34)
[2019-12-21] MEDS ORDERED: SENNA 8.6 MG TAB (SENOKOT) PO PRN (20:45)
[2019-12-21] MEDS ORDERED: MIRALAX *UNIT DOSE* 17GM PACKET PO PRN (20:45)
--- NOTE | 2019-12-21 20:57 | IPNPDOC ---
Date Seen The patient was seen on 12/21/19. Progress Note SUBJECTIVE: Pain better controlled, started on lower dose morphine. Consider transition to PO oxy in AM with ATC tylenol. Cooperative with PT/OT. CIWA low but was higher last evening. Tremoring in upper ext is baseline but worsened when not drinking according to patient. Denies increased SOB, fever, n/v/d, diaphoresis. OBJECTIVE: VITAL SIGNS: Please see below PHYSICAL EXAM: General: Speaking in full sentences, AAOx3, NAD and not actively in withdrawl HEENT: NCAT, PERRLA, EOMI, MMM CVS: RRR, no mrg Lungs: Persistent crackles in posterior left field, clear right Abdomen: Soft, Non-distended, Non-tender Extremities: No lower extremity edema, No calf tenderness Neuro: No focal motor or sensory deficit Skin: No visible rashes, scattered scabby resolving lesions bilateral arms LABORATORY: please see below MICROBIOLOGY: 12/18/19 Respiratory Virus Panel (PCR) (YAMILEX) - Final, Complete 12/18/19 Blood Culture, NG at 72 hrs 12/18/19 Blood Culture, NG at 72 hrs 12/18/19 Sputum Culture NEG ASSESSMENT: 59 yo M who recently sustained multiple rib fractures (R 1,2, 3, 4, 8, 9, 10, 11, L 1,2), T11 and L4 vertebral fracture after falling down a flight of stairs and seen by ortho as an outpatient and recently in a back brace and pain meds who returned to the ED with weakness, pain and cough and diagnosed with a LLL PNA. PLAN: 1. Multiple fractures 2/2 mechanical fall on 12/08 - XR ribs 12/08: Right 8th and 9th rib fractures without associated pneumothorax or lung contusion. - Lumbar CT 12/08: Wedge-shaped acute fracture of T11 vertebra with approximately 25% vertebral height loss. No retropulsion. Lucency in the midline L4 spinous process, likely a non-displaced acute fracture. - CT head 12/08: 1. No acute intracranial abnormality seen. 2. Progressive cerebral and cerebellar volume loss since 2017, advanced for age. - CT abdomen / pelvis 12/08: No acute abdominal or pelvic abnormality. Acute wedge shaped compression fracture of T11 vertebra. Lucency in the midline L4 spinous process, likely a nondisplaced fracture. - CT chest 12/08: Multiple bilateral acute rib fractures. Acute fracture of the superior endplate of T11 vertebra with approximately 25% vertebral height loss. No retropulsion. - Incentive spirometry and acapella -Morphine PRN for severe pain, tylenol ATC started today. Consider deescalation to oxy IR and ATC tomorrow, lidoderm patch. 2. CAP, LLL -WBC wnl, afebrile, currently on RA - CXR 12/17: Evidence of subtle left lower lobe infiltrate - MICRO above - Ceftriaxone and Doxycycline (Day #4) 3. Hypokalemia -Potassium 3.1 -S/p 60 mEq x 1 -F/u AM labs 4. Hypomagnesemia -Mag 1.1 -S/p 1 gm IV mag sulfate and increased PO mag oxide to 400 mg PO BID -F/u AM lab 5. Macrocytic anemia possibly 2/2 alcohol consumption, iron deficiency - S/p 1u pRBCs this admission -Fe studies show iron deficiency - No evidence of bleeding - Will continue to monitor -on thiamine/folate repletion for alcohol use disorder, ferrous sulfate BID with bowel regimen started 6. Suspected alcohol dependence -One dose of ativan given last evening; however, no signs of alcohol withdrawl this AM. -Patient reported that he consumed less than 1 beer yesterday, however, his alcohol level this morning was noted to be elevated -continue thiamine, folate and multivitamins, CIWA protocol 7. HTN - continue metop - Will continue with holding parameters 8. Chronic COPD - No evidence of exacerbation - c/w mdi therapy 9. Mood disorder - c/w Citalopram 10. Tremor, chronic. -Monitor 11. GERD - c/w Omeprazole 12. DVT prophylaxis - Lovenox DISPOSITION: Plan is discharge to prior living situation when medically improved. VS, I&O, 24H, Fishbone Vital Signs/I&O Vital Signs Date Time Temp Pulse Resp B/P (MAP) Pulse Ox O2 Delivery O2 Flow Rate FiO2 12/21/19 17:00 98 136/63 12/21/19 16:00 98.0 18 100 Room Air I&O- Last 24 Hours up to 6 AM 12/21/19 05:59 Intake Total 4660 ml Output Total 900 ml Balance 3760 ml Laboratory Data 24H LABS Laboratory Tests 2 12/20/19 21:51: Lactic Acid Level 2.2*H 12/21/19 02:10: Lactic Acid Followup at 4 Hours 1.3 12/21/19 05:36: Neutrophils (%) (Auto) , Nucleated Red Blood Cells % (auto) 0.0, Neutrophils 66, Band Neutrophils 3, Lymphocytes (Manual) 22, Monocytes (Manual) 7H, Eosinophils (Manual) 2, Macrocytosis 2+, Platelet Estimate NORMAL, Anion Gap 4L, Glomerular Filtration Rate > 60.0, Calcium Level 7.1L, Magnesium Level 1.1L, Total Bilirubin 1.1H, Aspartate Amino Transf (AST/SGOT) 20, Alanine Aminotransferase (ALT/SGPT) 18, Alkaline Phosphatase 95, Total Protein 4.7#L, Albumin 1.7#L, Albumin/Globulin Ratio 0.6 CBC/BMP Laboratory Tests 12/21/19 05:36 Microbiology Microbiology 12/19/19 Gram Stain - Final, Complete 12/19/19 Sputum Culture - Final, Complete 12/18/19 Respiratory Virus Panel (PCR) (YAMILEX) - Final, Complete 12/18/19 Blood Culture - Preliminary, Resulted No Growth after 72 hours. All specime... 12/18/19 Blood Culture - Preliminary, Resulted No Growth after 72 hours. All specime... Current Medications Current Medications Medications (Trade) Dose Ordered Sig/Cody Route PRN Reason Start Time Stop Time Status Last Admin Dose Admin Acetaminophen (Tylenol Tab) 650 mg Q4H PRN PO PAIN OR FEVER 12/18/19 15:30 12/21/19 11:00 DC 12/19/19 14:04 Acetaminophen (Tylenol Tab) 650 mg Q6H PO 12/21/19 12:00 12/21/19 17:32 Albuterol Sulfate (Proventil, Ventolin Hfa) 2 puff Q20M INH 12/18/19 13:45 12/18/19 14:26 DC 12/18/19 14:56 Budesonide/ Formoterol Fumarate (Symbicort 160/ 4.5mcg) 1 puff BID INH 12/18/19 21:00 12/21/19 19:48 Ceftriaxone Sodium 1 gm/ Dextrose 50 ml @ 100 mls/hr Q24H IV 12/19/19 14:00 12/21/19 15:13 Citalopram Hydrobromide (CeleXA) 20 mg DAILY PO 12/18/19 09:00 12/21/19 10:01 Doxycycline Hyclate 100 mg/ Dextrose 100 ml @ 100 mls/hr Q12H IV 12/18/19 17:00 12/21/19 17:32 Enoxaparin Sodium (Lovenox) 40 mg QHS SC 12/18/19 21:00 12/21/19 20:34 Folic Acid (Folic Acid) 1 mg DAILY PO 12/18/19 09:00 12/21/19 09:00 Home Med (Med Rec Complete!) ASDIRECTED XX 12/18/19 15:30 12/18/19 15:31 DC Levalbuterol HCl (Xopenex Neb) 1.25 mg Q2HP PRN INH SOB/WHEEZING 12/18/19 16:00 Lidocaine (Lidoderm Patch) 1 patch DAILY TD 12/19/19 09:00 12/21/19 10:00 Lorazepam (Ativan) 2 mg ASDIRECTED PRN PO SEE PROTOCOL 12/18/19 15:30 12/21/19 15:13 Lorazepam (Ativan) 2 mg Q4H IV 12/20/19 22:00 12/21/19 09:56 DC 12/21/19 01:24 Magnesium Gluconate (Magnesium Gluconate) 250 mg BID PO 12/19/19 09:00 12/21/19 08:08 DC 12/20/19 20:24 Magnesium Oxide (Mag-Ox) 400 mg BID PO 12/21/19 09:00 12/21/19 20:34 Metoprolol Tartrate (Lopressor) 25 mg DAILY PO 12/18/19 09:00 12/21/19 10:00 Morphine Sulfate (Morphine Sulfate Inj) 1 mg Q6H PRN IV MODERATE PAIN (PS 5-7) 12/21/19 11:00 Morphine Sulfate (Morphine Sulfate Inj) 2 mg Q4H PRN IV MODERATE PAIN (PS 5-7) 12/18/19 15:45 12/21/19 11:00 DC 12/21/19 10:00 Morphine Sulfate (Morphine Sulfate Inj) 2 mg Q6HP PRN IV SEVERE PAIN (PS 8-10) 12/21/19 11:00 Multivitamins (Theragram-M) 1 tab DAILY PO 12/18/19 09:00 12/21/19 10:01 Non-Formulary Medication ( See Comment Field Below ) REMOVE LIDODERM PATCH DAILY@21 XX 12/19/19 21:00 12/20/19 20:25 Omeprazole (PriLOSEC) 20 mg DAILY PO 12/18/19 09:00 12/21/19 10:01 Potassium Chloride (Micro-K Extencaps) 30 meq Q2H PO 12/21/19 09:00 12/21/19 11:01 DC 12/21/19 12:18 Sodium Chloride 1,000 ml @ 100 mls/hr Q10H IV 12/18/19 16:00 12/21/19 07:41 Thiamine HCl (Thiamine HCl) 100 mg DAILY PO 12/18/19 09:00 12/21/19 10:01 Allergies Coded Allergies: pregabalin (Verified Allergy, Intermediate, HIVES, 12/09/19) Surekha Gonzalez MD Dec 21, 2019 20:57
[2019-12-21] MEDS: **NOTE PATIENT COMMENT** MISC XX SCH (21:00)
[2019-12-21] MEDS: DOCUSATE SODIUM 100 MG CAP PO SCH (21:00)
[2019-12-21] MEDS: FERROUS SULFATE 325MG TAB PO SCH (23:00)
[2019-12-22] VITALS: BP 132/80
[2019-12-22] MEDS: ACETAMINOPHEN TAB 650MG DOSE (2X325MG) PO SCH ×2 (00:02→06:00)
[2019-12-22 04:00] VITALS: BP 111/79
[2019-12-22] MEDS: DOXYCYCLINE HYCLATE 100 MG in D5W MINI-BAG PLUS 100 ML IV SCH (04:17)
[2019-12-22 04:29] LABS: BASO % 0.5 % (0.0-1.0); EOS # 0.1 10^3/uL (0.0-0.5); EOS % 1.7 % (0.0-3.0); HEMATOCRIT 24.1 % (42.0-52.0); HEMOGLOBIN 8.3 g/dl (13.5-17.5); LYMPH # 1.3 10^3/uL (1.5-5.0); LYMPH % 21.3 % (24.0-44.0); MEAN CORPUSCULAR HEMOGLOBIN 35.9 pg (27.0-33.0); MEAN CORPUSCULAR HGB CONC 34.4 g/dl (32.0-36.5); MEAN CORPUSCULAR VOLUME 104.3 fl (80.0-96.0); MONO # 0.7 10^3/uL (0.0-0.8); MONO % 11.7 % (0.0-5.0); NEUTROPHILS # 3.9 10^3/uL (1.5-8.5); NEUTROPHILS % 64.5 % (36.0-66.0); PLATELET COUNT, AUTOMATED 210 10^3/uL (150-450); RED BLOOD COUNT 2.31 10^6/uL (4.30-6.10); WHITE BLOOD COUNT 6.1 10^3/uL (4.0-10.0)
[2019-12-22] MEDS: LORazepam 2 MG TAB PO PRN (04:30)
[2019-12-22 04:42] LABS: BLOOD UREA NITROGEN 4 MG/DL (7-18); CALCIUM LEVEL 7.1 MG/DL (8.5-10.1); CARBON DIOXIDE LEVEL 21 MEQ/L (21-32); CHLORIDE LEVEL 111 MEQ/L (98-107); CREATININE FOR GFR 0.45 MG/DL (0.70-1.30); GLOMERULAR FILTRATION RATE > 60.0 (>56); GLUCOSE, FASTING 78 MG/DL (70-100); MAGNESIUM LEVEL 1.2 MG/DL (1.8-2.4); POTASSIUM SERUM 3.4 MEQ/L (3.5-5.1); SODIUM LEVEL 140 MEQ/L (136-145)
[2019-12-22] MEDS: SYMBICORT 160/4.5MCG INHALER 6GM INH SCH (07:22)
[2019-12-22 08:00] VITALS: BP 124/80
[2019-12-22] MEDS ORDERED: MAG SULF 1GM/100ML (MAG RUN) 1 GM in IV 1 EA IV ONE (08:30)
[2019-12-22] MEDS: LIDOCAINE 5% (LIDODERM) PATCH TD SCH (08:32)
[2019-12-22] MEDS: FERROUS SULFATE 325MG TAB PO SCH (08:33)
[2019-12-22] MEDS: DOCUSATE SODIUM 100 MG CAP PO SCH (08:33)
[2019-12-22] MEDS: FOLIC ACID 1 MG TAB PO SCH (08:33)
[2019-12-22] MEDS: OMEPRAZOLE 20 MG CAP PO SCH (08:33)
[2019-12-22] MEDS: CitaloPRAM (CeleXA) 20 MG TAB PO SCH (08:33)
[2019-12-22] MEDS: METOPROLOL TART 25 MG TABLET PO SCH (08:33)
[2019-12-22] MEDS: MULTIVITAMINS/MINERALS THERAP 1 TAB PO SCH (08:33)
[2019-12-22] MEDS: THIAMINE 100 MG TAB PO SCH (08:33)
[2019-12-22] MEDS: MORPHINE 2 MG/ML 1ML VIAL (J2270) IV PRN (08:34)
[2019-12-22] MEDS: NS 1,000 ML IV SCH (08:36)
[2019-12-22] MEDS ORDERED: POTASSIUM CHLORIDE 10 MEQ SR TABLET PO SCH (09:00)
[2019-12-22] MEDS ORDERED: MAGNESIUM OXIDE 400 MG TAB (MAG-OX) PO SCH (09:00)
[2019-12-22] MEDS ORDERED: ACET1TAB55 PO (10:56)
[2019-12-22] MEDS ORDERED: DOCU100C16 PO (10:56)
[2019-12-22] MEDS ORDERED: FERR325T18 PO (10:56)
[2019-12-22] MEDS ORDERED: MAG400TA PO (10:56)
[2019-12-22] MEDS ORDERED: KLOR10TA76 PO (10:56)
[2019-12-22] MEDS ORDERED: DOXY-350 PO (10:58)
[2019-12-22] MEDS ORDERED: CEFU50TA PO (10:58)
--- NOTE | 2019-12-22 17:09 | DS.PDOC ---
Discharge Summary General Date of Admission Dec 18, 2019 at 15:25 Date of Discharge 12/22/19 Attending Physician: Surekha Simon MD Discharge Summary HISTORY OF PRESENT ILLNESS: Patient is a 59-year-old male with a PMHx of HTN who presented to the ER complaints of shortness of breath/weakness. Patient was recently at the emergency room on 12/08 after he had fallen down a flight of stairs after he tripped over a rug. Upon arrival to emergency room, patient was found to have multiple rib fractures (R 1,2, 3, 4, 8, 9, 10, 11, L 1,2), T11 and L4 vertebral fracture. Patient was advised to remain in the hospital, however, he left AGAINST MEDICAL ADVICE and follow up with orthopedic surgery as an outpatient. Upon follow-up, he has been given a back brace and opiate medications to help alleviate pain. Patient presented again to the hospital because of worsening weakness, pain and cough. Patient reports that hes been experiencing severe pain on his ribs. Reports that it is a 9/10, sharp, occurring intermittently alleviated with pain medications and aggravated with movement. Patient does report an associated cough with clear/white sputum without any blood. Patient has not expense any fevers or chills at home. Denies any palpitations. Patient has denied any prior history of heart attacks or strokes. Patient reports nausea without vomiting. Denies abdominal pain, constipation, diarrhea, or urinary discomfort. Patient reports that over the course of 1 month. His appetite has been poor and has expressed 35 pound weight loss over one month duration. CXR in ER showed early left lower lobe atelectasis/pneumonia. Patient was admitted for further treatment of pneumonia, pain control for rib fractures. HOSPITAL COURSE: Patient was continued with ceftriaxone and doxycycline. WBC markedly improved as well as pain with pain regimen. His H/H was low, believed to be 2/2 to alcohol use. He was transfused 1 unit PRBC with improvement. He was cooperative with PT/OT wearing brace. He was monitored on [facility] protocol due to for likely alcohol withdrawl, with this improving within 24 hrs. He denied hallucination, diaphoresis but his baseline tremors slightly worsened. Multiple electrolytes, including potassium and magnesium required supplementation. He was started on standing doses of both. By 12/22/19 the patient was cleared by physical therapy. Pain was controlled and he was discharged home with oral abx for additional 5 days (complete 10 days total) and oral pain regimen. He did not wish to have home physical therapy. He is advised to f/u with PCP after discharge within 1-2 weeks. At the time of discharge, patient denied chest pain, n/v/d, fevers or chills. ROS: Negative except for what is mentioned above PAST MEDICAL HISTORY: HTN COPD GERD anemia alcohol abuse history chronic tremor SURGICAL HISTORY: Right shoulder rotator cuff repair 2017 FAMILY HISTORY: - No history of malignancies SOCIAL HISTORY: - Denies the use of illicit drugs; reports he is an active smoker for 20 years at 1-1.5 PPD; patient reports that he does consume alcohol and only drinks beer. 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 DISCHARGE MEDICATIONS: Please see below. PHYSICAL EXAM: VITAL SIGNS: please see below General: Speaking in full sentences, AAOx3, NAD HEENT: NCAT, PERRLA, EOMI, MMM CVS: RRR, no mrg Lungs: Persistent crackles in posterior left field, clear right Abdomen: Soft, Non-distended, Non-tender Extremities: No lower extremity edema, No calf tenderness Neuro: No focal motor or sensory deficit Skin: No visible rashes, scattered scabby resolving lesions bilateral arms LABORATORY: please see below MICROBIOLOGY: 12/18/19 Respiratory Virus Panel (PCR) (YAMILEX) - Final, Complete 12/18/19 Blood Culture, NG at 72 hrs 12/18/19 Blood Culture, NG at 72 hrs 12/18/19 Sputum Culture NEG IMAGING: CXR: findings suggest early left lower lobe atelectasis/pneumonia. ASSESSMENT: 59 yo M who recently sustained multiple rib fractures (R 1,2, 3, 4, 8, 9, 10, 11, L 1,2), T11 and L4 vertebral fracture after falling down a flight of stairs and seen by ortho as an outpatient and recently in a back brace and pain meds who returned to the ED with weakness, pain and cough and diagnosed with a LLL PNA. PLAN: 1. Multiple fractures 2/2 mechanical fall on 12/08 - XR ribs 12/08: Right 8th and 9th rib fractures without associated pneumothorax or lung contusion. - Lumbar CT 12/08: Wedge-shaped acute fracture of T11 vertebra with approximately 25% vertebral height loss. No retropulsion. Lucency in the midline L4 spinous process, likely a non-displaced acute fracture. - CT head 12/08: 1. No acute intracranial abnormality seen. 2. Progressive cerebral and cerebellar volume loss since 2017, advanced for age. - CT abdomen / pelvis 12/08: No acute abdominal or pelvic abnormality. Acute wedge shaped compression fracture of T11 vertebra. Lucency in the midline L4 spinous process, likely a nondisplaced fracture. - CT chest 12/08: Multiple bilateral acute rib fractures. Acute fracture of the superior endplate of T11 vertebra with approximately 25% vertebral height loss. No retropulsion. - Oxycodone/acetaminophen PRN for pain. F/u with PCP after discharge. Does not wish to have home PT/OT but encouraged to wear brace. 2. CAP, LLL -WBC wnl, afebrile, currently on RA - CXR 12/17: Evidence of subtle left lower lobe infiltrate - MICRO above - Completed 5 days of ceftriaxone and doxycycline. To complete another 5 days (total of 10) of ceftin, doxycycline. 3. Hypokalemia -Potassium 3.4 -C/w home dose potassium. F/u with PCP 4. Hypomagnesemia likely 2/2 to alcohol abuse -Mag 1.2 -S/p 1 gm IV mag sulfate and increased PO mag oxide to 800 mg PO BID -F/u with PCP 5. Macrocytic anemia possibly 2/2 alcohol consumption, iron deficiency - S/p 1u pRBCs this admission -Fe studies show iron deficiency - No evidence of bleeding - Will continue to monitor -C/w ferrous sulfate BID with bowel regimen. If worsens, would benefit from IV venofer. 6. Suspected alcohol dependence -Patient reported that he consumed less than 1 beer yesterday, however, his alcohol level this morning was noted to be elevated -Currently no signs of withdrawl -Alcohol cessation counselling done at bedside 7. HTN - c/w home meds 8. Chronic COPD - No evidence of exacerbation - c/w home med 9. Mood disorder - c/w Citalopram 10. Tremor, chronic. -Monitor 11. GERD - c/w Omeprazole DISPOSITION: Discharge home today with f/u with PCP. TIME SPENT ON DISCHARGE: Greater than 30 minutes. Vital Signs/I&Os Vital Signs Date Time Temp Pulse Resp B/P (MAP) Pulse Ox O2 Delivery O2 Flow Rate FiO2 12/22/19 08:44 19 12/22/19 08:00 99.1 97 124/80 (95) 97 Room Air I&O- Last 24 Hours up to 6 AM 12/22/19 06:00 Intake Total 2570 ml Output Total 1080 ml Balance 1490 ml Laboratory Data Labs 24H Laboratory Tests 2 12/22/19 03:42: Immature Granulocyte % (Auto) 0.3, Neutrophils (%) (Auto) 64.5, Lymphocytes (%) (Auto) 21.3L, Monocytes (%) (Auto) 11.7H, Eosinophils (%) (Auto) 1.7, Basophils (%) (Auto) 0.5, Neutrophils # (Auto) 3.9, Lymphocytes # (Auto) 1.3L, Monocytes # (Auto) 0.7, Eosinophils # (Auto) 0.1, Basophils # (Auto) 0.0, Nucleated Red Blood Cells % (auto) 0.0, Anion Gap 8, Glomerular Filtration Rate > 60.0, Calcium Level 7.1L, Magnesium Level 1.2L CBC/BMP Laboratory Tests 12/22/19 03:42 Microbiology Microbiology 12/19/19 Gram Stain - Final, Complete 12/19/19 Sputum Culture - Final, Complete 12/18/19 Respiratory Virus Panel (PCR) (YAMILEX) - Final, Complete 12/18/19 Blood Culture - Preliminary, Resulted No Growth after 72 hours. All specime... 12/18/19 Blood Culture - Preliminary, Resulted No Growth after 72 hours. All specime... Discharge Medications Scheduled Acetaminophen (Acetaminophen) 325 Mg Tablet, 650 MG PO Q8H Budesonide/Formoterol (Symbicort 160-4.5 Mcg Inhaler) 6 Gm Hfa.aer.ad, 1 PUFF INH BID, (Reported) Cefuroxime Axetil (Cefuroxime) 500 Mg Tablet, 500 MG PO BID Citalopram Hydrobromide (Citalopram HBr) 20 Mg Tablet, 20 MG PO DAILY, (Reported) Docusate Sodium (Docusate Sodium) 100 Mg Capsule, 100 MG PO BID Doxycycline Monohydrate (Doxycycline) 100 Mg Capsule, 100 MG PO BID Ferrous Sulfate (Ferrous Sulfate) 325 Mg Tablet, 325 MG PO BID Magnesium Oxide (Magnesium Oxide) 400 Mg Tablet, 800 MG PO BID Metoprolol Tartrate (Metoprolol Tartrate) 25 Mg Tab, 25 MG PO DAILY, (Reported) Omeprazole (Omeprazole) 20 Mg Cap, 20 MG PO DAILY, (Reported) Potassium Chloride (Klor-Con M10) 10 Meq Tab.er.prt, 30 MEQ PO DAILY Scheduled PRN Albuterol Sulfate (Ventolin Hfa) 108 Mcg/Act Aer, 1 PUFF INH PRN PRN for SOB/WHEEZING, (Reported) Hydrocodone/Acetaminophen (Hydrocodone-Acetamin 5-325 mg) 1 Each Tablet, 1 TAB PO Q6H PRN for PAIN, (Reported) Allergies Coded Allergies: pregabalin (Verified Allergy, Intermediate, HIVES, 12/09/19) Surekha Gonzalez MD Dec 22, 2019 17:09
== END 2019-12-22 12:02 | disposition home or self-care (01) | DRG 183 ==
LOC: M ED 13:31 → M ED INP 15:25 → EEVIPCON 15:25 → ENRESERV 15:32 → M PCU 16:35
PROVIDERS: ADMIT Internal Medicine; ATTEND Internal Medicine
PROC: 30233N1 Transfusion of Nonautologous Red Blood Cells into Peripheral Vein, Percutaneous Approach (ICD-10-PCS; principal; 2019-12-20)
DX: S22.41XA Multiple fractures of ribs, right side, initial encounter for closed fracture (principal); J18.9 Pneumonia, unspecified organism; E87.2 Acidosis; E87.1 Hypo-osmolality and hyponatremia; S32.049A Unspecified fracture of fourth lumbar vertebra, initial encounter for closed fracture; S22.080A Wedge compression fracture of T11-T12 vertebra, initial encounter for closed fracture; F10.20 Alcohol dependence, uncomplicated; I10 Essential (primary) hypertension; J44.9 Chronic obstructive pulmonary disease, unspecified; K21.9 Gastro-esophageal reflux disease without esophagitis; F17.200 Nicotine dependence, unspecified, uncomplicated; E87.6 Hypokalemia; F39 Unspecified mood [affective] disorder; D53.9 Nutritional anemia, unspecified; Z79.899 Other long term (current) drug therapy; Z88.8 Allergy status to other drugs, medicaments and biological substances; W18.30XA Fall on same level, unspecified, initial encounter; Y92.9 Unspecified place or not applicable

== ENCOUNTER 2019-12-26 08:38 | Emergency (ER) | payer MEDICARE ==
[~2019-12-26] VITALS: Ht 182.9 cm; Wt 80.9 kg
[~2019-12-26 08:38] MED LIST changes: +ACET1TAB55 PO; +CEFU50TA PO; +CITA20TA7 PO; +DOCU100C16 PO; +DOXY-350 PO; +FERR325T18 PO; +HYDR-3713 PO; +KLOR10TA76 PO; +MAG400TA PO; +SYMB16INH INH
[2019-12-26] MEDS ORDERED: NORCO, ANEXSIA 5/325MG TABLET (HYDROcodone/ACETAMINOPHEN) PO ONE (09:45)
[2019-12-26 09:49] LABS: HEMATOCRIT 30.6 % (42.0-52.0); HEMOGLOBIN 10.1 g/dl (13.5-17.5); MEAN CORPUSCULAR HEMOGLOBIN 35.2 pg (27.0-33.0); MEAN CORPUSCULAR VOLUME 106.6 fl (80.0-96.0); PLATELET COUNT, AUTOMATED 426 10^3/uL (150-450); RED BLOOD COUNT 2.87 10^6/uL (4.30-6.10); WHITE BLOOD COUNT 6.6 10^3/uL (4.0-10.0)
--- NOTE | 2019-12-26 10:13 | REP ---
Clinical: Bilateral pain and swelling . Technique: Vazquez scale and color Doppler evaluation of the bilateral lower extremities using linear high frequency transducer. Findings: Ultrasound examination of the right and left lower extremity deep venous structures from the common femoral vein to the popliteal vein demonstrates normal compressibility flow and wave patterns in response to respiration and augmentation. There is no evidence for deep venous thrombosis. Incidental duplicated right superficial femoral vein noted. Impression: No evidence for deep venous thrombosis. Electronically Signed by Martín Pierce MD 12/26/2019 10:04 A
[2019-12-26 10:18] LABS: ALBUMIN 2.2 GM/DL (3.2-5.2); ALT/SGPT 21 U/L (12-78); BILIRUBIN,TOTAL 1.4 MG/DL (0.2-1.0); BLOOD UREA NITROGEN 3 MG/DL (7-18); CALCIUM LEVEL 8.4 MG/DL (8.5-10.1); CARBON DIOXIDE LEVEL 29 MEQ/L (21-32); CHLORIDE LEVEL 109 MEQ/L (98-107); CREATININE FOR GFR 0.81 MG/DL (0.70-1.30); GLOMERULAR FILTRATION RATE > 60.0 (>56); GLUCOSE, FASTING 89 MG/DL (70-100); POTASSIUM SERUM 4.5 MEQ/L (3.5-5.1); SODIUM LEVEL 144 MEQ/L (136-145); TOTAL PROTEIN 5.8 GM/DL (6.4-8.2)
[2019-12-26 10:42] VITALS: BP 111/74
== END 2019-12-26 10:43 | disposition home or self-care (01) ==
LOC: M ED 08:38
DX: R22.43 Localized swelling, mass and lump, lower limb, bilateral (principal); R60.0 Localized edema

== ENCOUNTER 2020-05-10 15:24 | Emergency (ER) | payer MEDICARE ==
[~2020-05-10] VITALS: Ht 182.9 cm; Wt 76.9 kg
[2020-05-10] MEDS ORDERED: ONDANSETRON 4MG/2ML VIAL IV ONE (16:30)
[2020-05-10] MEDS ORDERED: PANTOPRAZOLE 40MG VIAL (C9113 PER 1) IV ONE (16:30)
[2020-05-10] MEDS ORDERED: NS 1,000 ML IV SCH (16:30)
[2020-05-10 17:13] LABS: BASO % 0.4 % (0.0-1.0); EOS % 0.3 % (0.0-3.0); HEMATOCRIT 40.4 % (42.0-52.0); HEMOGLOBIN 13.4 g/dl (13.5-17.5); LYMPH # 0.7 10^3/uL (1.5-5.0); LYMPH % 7.4 % (24.0-44.0); MEAN CORPUSCULAR HEMOGLOBIN 35.4 pg (27.0-33.0); MEAN CORPUSCULAR HGB CONC 33.2 g/dl (32.0-36.5); MEAN CORPUSCULAR VOLUME 106.9 fl (80.0-96.0); MONO % 10.6 % (0.0-5.0); NEUTROPHILS # 7.7 10^3/uL (1.5-8.5); PLATELET COUNT, AUTOMATED 210 10^3/uL (150-450); RED BLOOD COUNT 3.78 10^6/uL (4.30-6.10); WHITE BLOOD COUNT 9.5 10^3/uL (4.0-10.0)
[2020-05-10 17:24] LABS: INR 0.92; PROTHROMBIN TIME 12.5 SECONDS (12.5-14.3)
[2020-05-10 17:27] LABS: ALT/SGPT 38 U/L (12-78); AMYLASE 61 U/L (25-115); BILIRUBIN,DIRECT 1.7 MG/DL (0.0-0.2); BILIRUBIN,TOTAL 2.5 MG/DL (0.2-1.0); BLOOD UREA NITROGEN 6 MG/DL (7-18); CALCIUM LEVEL 8.8 MG/DL (8.8-10.2); CARBON DIOXIDE LEVEL 26 MEQ/L (21-32); CHLORIDE LEVEL 102 MEQ/L (98-107); CREATININE FOR GFR 0.79 MG/DL (0.70-1.30); ETHYL ALCOHOL (ETHANOL) < 0.003 % (0.000-0.010); GLOMERULAR FILTRATION RATE > 60.0 (>49); GLUCOSE, FASTING 104 MG/DL (70-100); LIPASE 168 U/L (73-393); POTASSIUM SERUM 3.6 MEQ/L (3.5-5.1); SODIUM LEVEL 136 MEQ/L (136-145); TOTAL PROTEIN 6.9 GM/DL (6.4-8.2)
[2020-05-10 17:53] LABS: HEPATITIS B SURFACE ANTIGEN NEGATIVE (NEGATIVE)
--- NOTE | 2020-05-10 18:10 | REPVR ---
PROCEDURE INFORMATION: Exam: CT Abdomen And Pelvis Without Contrast Exam date and time: 05/10/2020 5:27 PM Age: 60 years old Clinical indication: Abdominal pain; Localized; Right upper quadrant (ruq); Additional info: Ruq pain TECHNIQUE: Imaging protocol: Computed tomography of the abdomen and pelvis without contrast. Radiation optimization: All CT scans at this facility use at least one of these dose optimization techniques: automated exposure control; mA and/or kV adjustment per patient size (includes targeted exams where dose is matched to clinical indication); or iterative reconstruction. COMPARISON: CT ABD/PEL W/IV CONTRAST ONLY 12/09/2019 6:34 PM FINDINGS: Limitations: Evaluation is somewhat limited by lack of IV contrast. Lungs: The visualized lung bases are essentially clear. Liver: The liver is again fatty in density. It appears otherwise grossly unremarkable. Gallbladder and bile ducts: At least 1 stone is now evident in the gallbladder, and there appears to be some gallbladder wall thickening and/or pericholecystic fluid. Pancreas: Grossly unremarkable. Spleen: Grossly unremarkable. Adrenal glands: Normal. No mass. Kidneys and ureters: There is no hydronephrosis, and no renal or ureteral calculus is identified. There are similar simple bilateral renal cysts. Stomach and bowel: The unopacified small bowel is not significantly distended to suggest obstruction. The large bowel is grossly unremarkable in appearance. Appendix: The appendix appears normal. Intraperitoneal space: No free air or significant free fluid. Vasculature: Coronary artery calcifications are again present. The abdominal aorta is nonaneurysmal. Atherosclerotic vascular calcifications are again present. Lymph nodes: No gross pathologic lymphadenopathy. Urinary bladder: Grossly unremarkable. Reproductive: Unremarkable as visualized. Bones/joints: Degenerative changes again involve the spine and hips. There is similar compression of the T11 vertebral body. Soft tissues: A very small fat containing umbilical hernia is again present. IMPRESSION: 1. Cholelithiasis with apparent gallbladder wall thickening and/or pericholecystic fluid, raising suspicion for cholecystitis. Consider ultrasound. 2. Fatty liver and other nonurgent findings similar to 12/09/19. COMMENTS: Consistent with the [employer]'s Incidental Findings Committee white paper (J Am Cullen Radiol 2018): Any incidental renal lesion less than 1 cm or classified as too small to characterize, or any incidental cystic renal lesion characterized as simple-appearing, is likely benign. No follow-up imaging is recommended for these lesions per consensus recommendations based on imaging criteria. Electronically signed by: Everardo Gonsalez On 05/10/2020 18:10:35 PM
[2020-05-10 18:20] LABS: HEPATITIS B CORE ANTIBODY IGM NEGATIVE (NEGATIVE)
[2020-05-10 18:22] LABS: HEPATITIS A ANTIBODY IGM NEGATIVE (NEGATIVE)
[2020-05-10] MEDS ORDERED: KETOROLAC 30 MG/ML 1ML VIAL IV ONE (18:30)
--- NOTE | 2020-05-10 19:05 | REPVR ---
PROCEDURE INFORMATION: Exam: US Abdomen, Limited; Right Upper Quadrant Exam date and time: 05/10/2020 6:49 PM Age: 60 years old Clinical indication: Abdominal pain; Flank; Right upper quadrant (ruq); Additional info: Ruq pain TECHNIQUE: Imaging protocol: US abdomen. Real time ultrasound with image documentation. Limited exam focused on the right upper quadrant. COMPARISON: CT ABD PELVIS W/O CONTRAST 05/10/2020 5:23 PM FINDINGS: Liver: The liver is mildly large, measuring 17.8 cm, and increased in echotexture, suggesting fatty infiltration. There is no demonstrated mass or intrahepatic biliary ductal dilatation, evaluation for which is somewhat limited due to the increased echotexture. Gallbladder: The gallbladder contains a stone adherent to the neck. Its wall is thickened at 7 mm, and there is small pericholecystic fluid. Sonographic Bullock sign was not reported as positive. Common bile duct: The common bile duct appears large for a patient of this age, measuring 7.0 mm. Pancreas: The pancreas is largely obscured by overlying bowel gas. Right kidney: The right kidney measures 11.7 x 5.2 x 6.2 cm. Its cortex measures 1.5 cm in thickness. Normal appearing echotexture. There is no hydronephrosis or demonstrated renal stone, cyst or mass. IMPRESSION: 1. Stone adherent to the gallbladder neck with gallbladder wall thickening and small pericholecystic fluid, suspicious for cholecystitis. Sonographic Bullock sign not reported as positive. 2. Mild dilatation of the common bile duct at 7.0 mm. Correlate as to possible biliary obstruction and consider dedicated evaluation. Electronically signed by: Everardo Gonsalez On 05/10/2020 19:05:29 PM
[2020-05-10] MEDS ORDERED: AUGMENTIN 875 MG TAB PO ONE (19:30)
[2020-05-10] MEDS ORDERED: NORCO 5/325MG TABLET (BULK FOR ED) PO ONE (19:30)
[2020-05-10] MEDS ORDERED: NORC1TAB7 PO (19:33)
[2020-05-10] MEDS ORDERED: AUGM875T28 PO (19:33)
[2020-05-10] MEDS ORDERED: ZOFR4TAB16 PO (19:33)
[2020-05-10 20:06] VITALS: BP 115/79
--- NOTE | 2020-05-13 07:54 | ED PDOC ---
Post-Departure Follow-Up [facility] [place] fax[place] formal report of [facility] for fu Veto Cortez MD May 13, 2020 07:54
== END 2020-05-10 20:11 | disposition home or self-care (01) ==
LOC: M ED 15:24
DX: K80.10 Calculus of gallbladder with chronic cholecystitis without obstruction (principal); I10 Essential (primary) hypertension; K21.9 Gastro-esophageal reflux disease without esophagitis; F17.200 Nicotine dependence, unspecified, uncomplicated; Z88.8 Allergy status to other drugs, medicaments and biological substances
CPT/HCPCS: 74176; 76705; 80048; 80076; 81001; 82150; 83690; 85025; 85610; 86705; 86709; 86803; 87340; 96361; 96374; 96375; 99284; C9113; G0480; J1885; J2405

== ENCOUNTER → 2020-06-07 | Outpatient (CLI) | payer MEDICARE ==
[~2020-06-07] MED LIST changes: +AUGM875T28 PO; +NORC1TAB7 PO; +ZOFR4TAB16 PO
[2020-06-07 09:11] LABS: HEMATOCRIT 43.4 % (42.0-52.0); HEMOGLOBIN 14.5 g/dl (13.5-17.5); MEAN CORPUSCULAR HEMOGLOBIN 33.7 pg (27.0-33.0); MEAN CORPUSCULAR HGB CONC 33.4 g/dl (32.0-36.5); MEAN CORPUSCULAR VOLUME 100.9 fl (80.0-96.0); PLATELET COUNT, AUTOMATED 135 10^3/uL (150-450)
[2020-06-07 09:29] LABS: INR 0.9; PROTHROMBIN TIME 12.3 SECONDS (12.5-14.3)
[2020-06-07 09:35] LABS: HEMOGLOBIN A1c 4.4 %
[2020-06-07 09:41] LABS: ALBUMIN 3.1 GM/DL (3.2-5.2); ALT/SGPT 51 U/L (12-78); BILIRUBIN,TOTAL 3.3 MG/DL (0.2-1.0); BLOOD UREA NITROGEN 9 MG/DL (7-18); CALCIUM LEVEL 8.8 MG/DL (8.8-10.2); CARBON DIOXIDE LEVEL 28 MEQ/L (21-32); CHLORIDE LEVEL 97 MEQ/L (98-107); CHOLESTEROL LEVEL 227 MG/DL (<200); CREATININE FOR GFR 0.96 MG/DL (0.70-1.30); GLOMERULAR FILTRATION RATE > 60.0 (>49); GLUCOSE, FASTING 96 MG/DL (70-100); HDL CHOLESTEROL 122 MG/DL (>40); LDL CHOLESTEROL 87 MG/DL (<100); NON-HDL-C 105 MG/DL; POTASSIUM SERUM 3.5 MEQ/L (3.5-5.1); PROSTATIC SPECIFIC AG MONITOR 2.18 NG/ML (< 4.00); SODIUM LEVEL 136 MEQ/L (136-145); THYROID STIMULATING HORMONE 0.924 uIU/ML (0.358-3.740); TRIGLYCERIDES LEVEL 92 MG/DL (<150)
--- NOTE | 2020-06-07 09:57 | REP ---
INDICATION: HTN, COPD, PREOP LAB 1ST, EKG 2ND, XR 3RD. COMPARISON: PA and lateral chest dated 10/20/2017, right rib series dated 12/09/2019, portable chest dated 12/18/2019. TECHNIQUE: Upright PA and lateral chest. FINDINGS: The lung [place] are clear. Cardiac size is normal. The arpit, mediastinum and skeletal structures are unremarkable. Except for old right rib fractures. There are orthopedic screws in the right humeral head, unchanged. IMPRESSION: Essentially negative PA and lateral chest <Electronically signed by Richard Garnett > 06/07/20 [id number]
--- NOTE | 2020-06-08 07:09 | ECGEPIP ---
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 Slower rate with improved ST/T wave abnormalities from 12/18/19 Electronically Signed on 06-08-2020 7:08:58 EST by Kee Bojorquez
== END ==
LOC: M LAB 08:29
PROVIDERS: ATTEND Family Medicine
DX: Z01.812 Encounter for preprocedural laboratory examination (principal); J44.9 Chronic obstructive pulmonary disease, unspecified; I10 Essential (primary) hypertension; Z79.899 Other long term (current) drug therapy; R97.20 Elevated prostate specific antigen [PSA]

== ENCOUNTER → 2020-06-25 | Outpatient (CLI) | payer MEDICARE | LOC: M LABSMTC 10:05 | PROVIDERS: ATTEND Anesthesiology | DX: Z01.812 Encounter for preprocedural laboratory examination (principal); Z20.828 Contact with and (suspected) exposure to other viral communicable diseases ==

== ENCOUNTER → 2020-07-26 | Outpatient (CLI) | payer MEDICARE ==
[~2020-07-26] MED LIST changes: -MAG400TA PO; +MAGN400T35 PO
== END ==
LOC: M LABSMTC 10:45
PROVIDERS: ATTEND Anesthesiology
DX: Z01.812 Encounter for preprocedural laboratory examination (principal); Z20.822 Contact with and (suspected) exposure to COVID-19

== ENCOUNTER → 2020-09-17 | Outpatient (CLI) | payer MEDICARE | LOC: M LABSMTC 10:49 | PROVIDERS: ATTEND Anesthesiology | DX: Z01.818 Encounter for other preprocedural examination (principal) ==

== ENCOUNTER → 2020-09-18 | Outpatient (CLI) | payer MEDICARE ==
--- NOTE | 2020-09-18 08:32 | REP ---
INDICATION: HTN- LABS AND EKG FIRST COMPARISON: 06/07/2020 TECHNIQUE: PA and lateral. FINDINGS: The mediastinum and cardiac silhouette are normal. The lung [place] are clear and without acute consolidation, effusion, or pneumothorax. The skeletal structures are intact and old healed rib fractures are again identified. Right shoulder repair noted. Lateral view demonstrates nonacute compression deformity lower thoracic spine. IMPRESSION: No acute cardiopulmonary process. <Electronically signed by Martín Pierce > 09/18/20 [id number]
--- NOTE | 2020-09-18 08:38 | ECGEPIP ---
[facility] Test Date: 2020-09-18 Pat Name: CHRISTOS MUÑOZ Department: Room: - Gender: Male Side Guider: ekg : 1960 Requested By: Sherri Wagner Order Number: [id number] Reading MD: Sandro Magana Measurements Intervals Warner Rate: 87 P: 9 RI: 146 QRS: 78 QRSD: 78 T: 25 QT: 370 QTc: 445 Interpretive Statements Sinus rhythm with premature atrial complexes Low QRS complex voltage in the limb leads Delayed anterior R wave progression Nonspecific ST-T wave abnormalities Similar to tracing done 06-07-20 Electronically Signed on 09-18-2020 8:38:16 EDT by Sandro Magana
[2020-09-18 09:11] LABS: HEMATOCRIT 39.7 % (42.0-52.0); HEMOGLOBIN 13.6 g/dl (13.5-17.5); MEAN CORPUSCULAR HGB CONC 34.3 g/dl (32.0-36.5); PLATELET COUNT, AUTOMATED 211 10^3/uL (150-450); RED BLOOD COUNT 3.78 10^6/uL (4.30-6.10); WHITE BLOOD COUNT 8.4 10^3/uL (4.0-10.0)
[2020-09-18 09:17] LABS: APPEARANCE, URINE HAZY (CLEAR); BACTERIA, URINE AUTO 1+ (NEGATIVE); BILIRUBIN, URINE AUTO NEGATIVE (NEGATIVE); BLOOD, URINE BLOOD NEGATIVE (NEGATIVE); COLOR, URINE AMBER (YELLOW); GLUCOSE, URINE (UA) AUTO NEGATIVE (NEGATIVE); KETONE, URINE AUTO 1+ mg/dL (NEGATIVE); LEUKOCYTE ESTERASE, URINE AUTO NEGATIVE (NEGATIVE); MUCUS, URINE MODERATE (NEGATIVE); NITRITE, URINE AUTO NEGATIVE (NEGATIVE); PROTEIN, URINE AUTO 1+ mg/dL (NEGATIVE); RBC, URINE AUTO 1 /HPF (0-3); SPECIFIC GRAVITY URINE AUTO 1.016 (1.002-1.035); SQUAMOUS EPITHELIAL CELL UR AU 0 /HPF (0-6); WBC, URINE AUTO 6 /HPF (0-3)
[2020-09-18 09:22] LABS: INR 0.96
[2020-09-18 09:46] LABS: ALBUMIN 3.1 GM/DL (3.2-5.2); ALT/SGPT 55 U/L (12-78); BILIRUBIN,TOTAL 2.5 MG/DL (0.2-1.0); BLOOD UREA NITROGEN 7 MG/DL (7-18); CALCIUM LEVEL 8.5 MG/DL (8.8-10.2); CARBON DIOXIDE LEVEL 28 MEQ/L (21-32); CHLORIDE LEVEL 97 MEQ/L (98-107); CHOLESTEROL LEVEL 192 MG/DL (<200); CREATININE FOR GFR 0.94 MG/DL (0.70-1.30); GLOMERULAR FILTRATION RATE > 60.0 (>49); GLUCOSE, FASTING 106 MG/DL (70-100); HDL CHOLESTEROL 101 MG/DL (>40); LDL CHOLESTEROL 70 MG/DL (<100); NON-HDL-C 91 MG/DL; POTASSIUM SERUM 3.4 MEQ/L (3.5-5.1); PROSTATIC SPECIFIC AG MONITOR 1.69 NG/ML (< 4.00); SODIUM LEVEL 135 MEQ/L (136-145); TRIGLYCERIDES LEVEL 103 MG/DL (<150)
== END ==
LOC: M LAB 07:53
PROVIDERS: ATTEND Family Medicine
DX: R53.83 Other fatigue (principal); I10 Essential (primary) hypertension; R97.20 Elevated prostate specific antigen [PSA]

== ENCOUNTER 2020-09-22 08:00 | Day surgery (SDC) | payer MEDICARE ==
[~2020-09-22] VITALS: Ht 182.9 cm; Wt 66.7 kg
[~2020-09-22 08:00] MED LIST changes: +LR 1,000 ML IV ONE; +TUMS500C PO
[2020-09-22] MEDS ORDERED: KETOROLAC 60MG 2ML VIAL As Ordered ONE (08:09)
[2020-09-22] MEDS ORDERED: MIDAZOLAM INJ 2MG/2ML VIAL (J2250 PER 1MG) As Ordered ONE (08:09)
[2020-09-22] MEDS ORDERED: ONDANSETRON 4MG/2ML VIAL As Ordered ONE (08:09)
[2020-09-22] MEDS ORDERED: ACETAMINOPHEN 1000MG 100ML IV BTL (OFIRMEV) (J0131 PER 10MG) As Ordered ONE ×2 (08:09→15:28)
[2020-09-22] MEDS ORDERED: LIDOCAINE 2% 100MG/5ML SDV (FOR ANES.) As Ordered ONE (08:09)
[2020-09-22] MEDS ORDERED: propofoL 200 MG/20 ML VIAL As Ordered ONE (08:09)
[2020-09-22] MEDS ORDERED: ROCURONIUM BROMIDE 50 MG/5 ML VIAL As Ordered ONE (08:09)
[2020-09-22] MEDS ORDERED: fentaNYL 100 MCG/2 ML INJECTION (J3010) As Ordered ONE ×2 (08:09→10:47)
[2020-09-22] MEDS ORDERED: LACRILUBE (AKWA TEARS) OPHTH OINT 3.5 GM As Ordered ONE (08:09)
[2020-09-22] MEDS ORDERED: dexameTHASONE 4 MG/ML 1ML VIAL (J1100 PER 1MG) As Ordered ONE (08:09)
[2020-09-22] MEDS ORDERED: SUGAMMADEX SODIUM 500 MG/5 ML VIAL (BRIDION) As Ordered ONE (08:16)
[2020-09-22] MEDS ORDERED: BUPIVACAINE/EPIN 0.25% 30 ML VIAL As Ordered ONE (09:09)
[2020-09-22] MEDS ORDERED: PHENYLephrine 500MCG 5ML (100MCG/ML) SYRINGE As Ordered ONE (10:12)
[2020-09-22] MEDS ORDERED: NORCO, ANEXSIA 5/325MG TABLET (HYDROcodone/ACETAMINOPHEN) PO PRN (10:35)
[2020-09-22] MEDS ORDERED: LR 1,000 ML IV SCH (10:40)
[2020-09-22] MEDS ORDERED: ONDANSETRON 4MG/2ML VIAL IV PRN (10:45)
[2020-09-22] MEDS ORDERED: METOCLOPRAMIDE INJ 10MG/2ML VIAL (J2765 PER 1) IV PRN (10:45)
[2020-09-22] MEDS: fentaNYL 100 MCG/2 ML INJECTION (J3010) IV PRN ×3 (10:51→11:06)
[2020-09-22] MEDS: PERCOCET 5MG/325MG TAB PO PRN ×2 (10:56→11:39)
[2020-09-22] MEDS ORDERED: HYDROmorphone HCL 2 MG/ML 1ML VIAL (J1170) As Ordered ONE (12:41)
[2020-09-22 13:06] VITALS: BP 123/80
--- NOTE | 2020-09-22 14:15 | RO ---
OPERATIVE NOTE DATE OF OPERATION: 09/22/2020 PREOPERATIVE DIAGNOSIS: Symptomatic cholelithiasis. POSTOPERATIVE DIAGNOSIS: Symptomatic cholelithiasis. PROCEDURE: Robotic cholecystectomy. SURGEON: Richard Williamson DO CREDIT COUNSELOR: Charisse Diana ANESTHESIA: General. EBL: 5. COMPLICATIONS: None. INDICATIONS FOR PROCEDURE: The patient is a 60-year-old male who presents with persistent right upper quadrant pain and found to have symptomatic cholelithiasis. Recommendation was to proceed with robotic cholecystectomy. Risks and benefits of the procedure not limited to but including bleeding, infection, hernia formation, damage to surrounding structures, need for further surgery were discussed in detail with the patient, informed consent was obtained and procedure planned. DESCRIPTION OF PROCEDURE: The patient was brought back to operating room 7. After sufficient sedation the abdomen was sterilely prepped and draped. Time out was done to confirm proper patient, proper procedure. Following that an 8 mm incision was made in left upper quadrant, Veress needle was inserted and abdomen was insufflated to 15 mmHg. Veress needle was removed. 8 mm Optiview port was used to gain access to the abdomen. Once the abdomen was entered three more ports were placed across upper abdomen into the right upper quadrant. Robot was docked to the ports. From the console the fundus of the gallbladder was elevated up to his right shoulder. Omental adhesions were carefully dissected free using sharp and blunt dissection. Once that was completed the gallbladder was elevated up toward the right shoulder more. The cystic duct and cystic artery were both carefully dissected free using combination of blunt and sharp dissection. Once they were both clearly identified they were both were doubly clipped and cut. The gallbladder was then dissected free from the gallbladder fossa using electrocautery and then placed inside a 5 mm Endo Catch bag and brought out through the right lateral port site. Once the gallbladder was removed the right upper quadrant was aspirated to remove a little bit of bile that had leaked out. Once that was completed the abdomen was desufflated. Skin incisions were closed with 4-0 Vicryl subcuticular sutures. The abdomen was cleaned and dried; Steri-Strips, 4 x 4 and tape were applied.
== END 2020-09-22 13:21 | disposition home or self-care (01) ==
LOC: M SDC 08:00
PROVIDERS: ATTEND Surgery
DX: K80.10 Calculus of gallbladder with chronic cholecystitis without obstruction (principal); I10 Essential (primary) hypertension; K21.9 Gastro-esophageal reflux disease without esophagitis; J44.9 Chronic obstructive pulmonary disease, unspecified; G47.33 Obstructive sleep apnea (adult) (pediatric); Z79.899 Other long term (current) drug therapy; F17.218 Nicotine dependence, cigarettes, with other nicotine-induced disorders
CPT/HCPCS: 47562; 88304; J0131; J1100; J1170; J1885; J2250; J2370; J2405; J3010; S2900

== ENCOUNTER → 2020-12-26 | Outpatient (CLI) | payer MEDICARE ==
[~2020-12-26] MED LIST changes: -LR 1,000 ML IV ONE
[2020-12-26 10:29] LABS: BASO # 0.1 10^3/uL (0.0-0.2); BASO % 1.1 % (0.0-1.0); EOS # 0.1 10^3/uL (0.0-0.5); EOS % 0.8 % (0.0-3.0); HEMATOCRIT 31.9 % (42.0-52.0); HEMOGLOBIN 10.9 g/dl (13.5-17.5); LYMPH # 1.1 10^3/uL (1.5-5.0); LYMPH % 15.1 % (24.0-44.0); MEAN CORPUSCULAR HEMOGLOBIN 36.6 pg (27.0-33.0); MEAN CORPUSCULAR HGB CONC 34.2 g/dl (32.0-36.5); MONO # 0.6 10^3/uL (0.0-0.8); MONO % 8.7 % (2.0-8.0); NEUTROPHILS # 5.3 10^3/uL (1.5-8.5); NEUTROPHILS % 73.6 % (36.0-66.0); PLATELET COUNT, AUTOMATED 215 10^3/uL (150-450); RED BLOOD COUNT 2.98 10^6/uL (4.30-6.10); WHITE BLOOD COUNT 7.2 10^3/uL (4.0-10.0)
[2020-12-26 11:10] LABS: ALBUMIN 2.3 GM/DL (3.2-5.2); ALT/SGPT 42 U/L (12-78); BILIRUBIN,TOTAL 1.1 MG/DL (0.2-1.0); BLOOD UREA NITROGEN 6 MG/DL (7-18); CALCIUM LEVEL 8.5 MG/DL (8.8-10.2); CARBON DIOXIDE LEVEL 28 MEQ/L (21-32); CHLORIDE LEVEL 104 MEQ/L (98-107); CHOLESTEROL LEVEL 197 MG/DL (<200); CHOLESTEROL RISK RATIO 1.989 (<5); CREATININE FOR GFR 0.58 MG/DL (0.70-1.30); FREE T4 0.69 NG/DL (0.76-1.46); GLOMERULAR FILTRATION RATE > 60.0 (>49); GLUCOSE, FASTING 92 MG/DL (70-100); HDL CHOLESTEROL 99 MG/DL (>40); LDL CHOLESTEROL 84 MG/DL (<100); NON-HDL-C 98 MG/DL; POTASSIUM SERUM 3.9 MEQ/L (3.5-5.1); SODIUM LEVEL 138 MEQ/L (136-145); TOTAL PROTEIN 6.4 GM/DL (6.4-8.2); TRIGLYCERIDES LEVEL 70 MG/DL (<150)
== END ==
LOC: M PLALAB 08:41
PROVIDERS: ATTEND Nurse Practitioner Family
DX: I10 Essential (primary) hypertension (principal)

== ENCOUNTER 2021-01-14 13:27 | Inpatient (IN) | payer MEDICARE ==
[~2021-01-14] VITALS: Ht 182.9 cm; Wt 66.9 kg
--- NOTE | 2021-01-14 14:45 | REP ---
INDICATION: CHEST PAIN. COMPARISON: Comparison chest x-ray September 18, 2020. TECHNIQUE: Portable upright AP chest radiograph. FINDINGS: The lungs are hyperinflated consistent with some degree of COPD but clear. Pleural angles are sharp. Heart is not enlarged. There are old healed rib fractures on the right unchanged. The aorta is somewhat tortuous. Pulmonary vasculature is not increased.. IMPRESSION: No active disease. <Electronically signed by Rahul Dutta > 01/14/21 [id number]
[2021-01-14] MEDS ORDERED: NS 1,000 ML IV ONE ×2 (14:50→16:45)
[2021-01-14 15:01] LABS: BASO % 0.2 % (0.0-1.0); EOS % 0.2 % (0.0-3.0); HEMATOCRIT 36.4 % (42.0-52.0); HEMOGLOBIN 12.6 g/dl (13.5-17.5); LYMPH # 0.9 10^3/uL (1.5-5.0); MEAN CORPUSCULAR HEMOGLOBIN 35.3 pg (27.0-33.0); MEAN CORPUSCULAR HGB CONC 34.6 g/dl (32.0-36.5); MONO # 1.2 10^3/uL (0.0-0.8); MONO % 7.8 % (2.0-8.0); NEUTROPHILS # 13.3 10^3/uL (1.5-8.5); NEUTROPHILS % 85.3 % (36.0-66.0); PLATELET COUNT, AUTOMATED 247 10^3/uL (150-450); RED BLOOD COUNT 3.57 10^6/uL (4.30-6.10); WHITE BLOOD COUNT 15.6 10^3/uL (4.0-10.0)
--- NOTE | 2021-01-14 15:17 | REP ---
INDICATION: fall. COMPARISON: Comparison head CT study December 09, 2019.. TECHNIQUE: Helical scanning is acquired. 5 mm axial images were reformatted. Coronal MPR images were generated. FINDINGS: Bone window settings demonstrate an intact bony calvarium. There is no evidence of skull fracture or incidental bony calvarial lesion. The visualized paranasal sinuses appear clear. No intraorbital abnormality is seen. On soft tissue window setting images; the lateral, third, and fourth ventricles are normal in size and position. Vazquez-white differentiation pattern is normal above and below the tentorium. There are is no evidence of intracranial hemorrhage. No mass, edema, infarction, or midline shift is seen. No extra-axial fluid collection is appreciated. There is moderate vascular calcification in the distal internal carotid and vertebral arteries. There is mild to moderate generalized volume loss. Small vessel atherosclerotic changes are seen. These are stable when compared with the prior study. IMPRESSION: Generalized volume loss, vascular calcification, and small vessel atherosclerotic changes. No acute intracranial abnormality.. <Electronically signed by Rahul Dutta > 01/14/21 [id number]
--- NOTE | 2021-01-14 15:20 | REP ---
INDICATION: fall. COMPARISON: None. TECHNIQUE: Helical scanning is acquired and overlapping 2 mm high resolution axial images were generated and reviewed at bone and soft tissue window settings. Coronal and sagittal multiplanar re-formations images are generated. FINDINGS: There is no evidence of cervical spine element fracture. No skull base fracture is seen. Cervical vertebral body heights are preserved. Alignment is normal. Facet joints are normally aligned bilaterally at each cervical level on multiplanar re-formations images. There is no evidence of intraspinal or paraspinal hematoma. No extra vertebral abnormality is seen. There is straightening of the normal cervical lordosis. Degenerative disc changes are noted throughout the cervical spine, most prominent spurring affecting the C5-6 and C4-5 levels. There is left-sided neural foraminal narrowing at C3-4. Mild bilateral neural foraminal narrowing from uncovertebral spurring is noted at C5-6. Osteoarthritic facet hypertrophy is noted in the mid cervical spine bilaterally. IMPRESSION: Degenerative spondylosis changes. Straightening. No fracture or other traumatic abnormality.. <Electronically signed by Rahul Dutta > 01/14/21 [id number]
[2021-01-14 15:46] LABS: ALBUMIN 2.8 GM/DL (3.2-5.2); BILIRUBIN,DIRECT 0.9 MG/DL (0.0-0.2); BILIRUBIN,TOTAL 2.1 MG/DL (0.2-1.0); FREE T4 1.11 NG/DL (0.76-1.46); THYROID STIMULATING HORMONE 1.06 uIU/ML (0.358-3.740); TOTAL PROTEIN 7.5 GM/DL (6.4-8.2)
[2021-01-14] MEDS ORDERED: fentaNYL 100 MCG/2 ML INJECTION (J3010) IV ONE (15:50)
[2021-01-14 16:13] LABS: CALCIUM LEVEL 8.4 MG/DL (8.8-10.2); CREATININE FOR GFR 1.81 MG/DL (0.70-1.30); GLOMERULAR FILTRATION RATE 40.9 (>49); POTASSIUM SERUM 3.2 MEQ/L (3.5-5.1)
--- NOTE | 2021-01-14 16:33 | REP ---
INDICATION: fall. COMPARISON: Comparison lumbar spine radiographs are from January 22, 2017.. TECHNIQUE: Five views of the lumbar spine are obtained. FINDINGS: Lumbar vertebral body heights are preserved. There is straightening of the normal lumbar lordosis. There is diffuse degenerative disc disease with disc space narrowing and anterior osteophyte formation at each lumbar level, least pronounced at L5-S1. There is osteoarthritic facet hypertrophy bilaterally at L5-S1 L4-5 and to a lesser extent, L3-4. Sacrum and SI joints are intact. Psoas margins are symmetric. Degenerative disc changes are radiographically stable from the January 22, 2017 study. IMPRESSION: Degenerative spondylosis changes diffusely as above. Unchanged from the 2017 prior study. No acute abnormality. <Electronically signed by Rahul Dutta > 01/14/21 [id number]
--- NOTE | 2021-01-14 16:34 | REP ---
INDICATION: fall. COMPARISON: Comparison chest x-ray is from September 18, 2020.. TECHNIQUE: Three views of the thoracic spine are presented. FINDINGS: There is mild old wedge compression deformity at the T11 vertebral body unchanged from the comparison study from 2017 and September 18, 2020. There is discogenic spurring in the lower thoracic spine unchanged. Pedicles and posterior elements are intact. No paravertebral soft tissue mass is seen. No fracture or collapse seen. The visualized ribs are unremarkable. IMPRESSION: No acute fracture or collapse seen. Old wedge compression deformity at T11. <Electronically signed by Rahul Dutta > 01/14/21 [id number]
[2021-01-14] MEDS ORDERED: HOME MED LIST COMPLETE! XX SCH (17:30)
[2021-01-14 17:41] LABS: RSV AMPLIFICATION NEGATIVE (NEGATIVE)
[2021-01-14] MEDS ORDERED: ACETAMINOPHEN TAB 650MG DOSE (2X325MG) PO PRN (17:50)
[2021-01-14] MEDS ORDERED: LR 1,000 ML IV SCH (17:55)
[2021-01-14 19:45] VITALS: BP 105/68
[2021-01-14] MEDS: HEPARIN SOD (PORCINE) 5000UNITS/ML 1ML VIAL/SYRINGE SC SCH (20:04)
[2021-01-14] MEDS: KCL 20MEQ in NS 1000ML 1,000 ML IV SCH (23:41)
[2021-01-15] VITALS: BP 100/66
[2021-01-15 04:00] VITALS: BP 118/79
[2021-01-15 06:19] LABS: HEMATOCRIT 30.9 % (42.0-52.0); HEMOGLOBIN 10.7 g/dl (13.5-17.5); MEAN CORPUSCULAR HGB CONC 34.6 g/dl (32.0-36.5); PLATELET COUNT, AUTOMATED 181 10^3/uL (150-450); RED BLOOD COUNT 2.97 10^6/uL (4.30-6.10); WHITE BLOOD COUNT 9.8 10^3/uL (4.0-10.0)
[2021-01-15 06:45] LABS: CALCIUM LEVEL 7.4 MG/DL (8.8-10.2); CREATININE FOR GFR 1.35 MG/DL (0.70-1.30); GLOMERULAR FILTRATION RATE 57.4 (>49); MAGNESIUM LEVEL 1.4 MG/DL (1.8-2.4); POTASSIUM SERUM 3.6 MEQ/L (3.5-5.1)
[2021-01-15] MEDS: KCL 20MEQ in NS 1000ML 1,000 ML IV SCH ×2 (07:42→18:23)
[2021-01-15 08:00] VITALS: BP 107/76
[2021-01-15] MEDS: SYMBICORT 160/4.5MCG INHALER 6GM INH SCH ×2 (08:00→20:27)
[2021-01-15] MEDS: NICOTINE 14 MG/24 HR TRANSDERMAL TD SCH (08:48)
[2021-01-15] MEDS: HEPARIN SOD (PORCINE) 5000UNITS/ML 1ML VIAL/SYRINGE SC SCH ×2 (08:48→20:12)
[2021-01-15] MEDS ORDERED: ALBUTEROL 90 MCG/ACT 8GM HFA INHALER INH PRN (09:30)
[2021-01-15] MEDS: CitaloPRAM (CeleXA) 20 MG TAB PO SCH (10:16)
[2021-01-15] MEDS: MAG SULF 1GM/100ML (MAG RUN) 1 GM in IV 1 EA IV SCH ×3 (10:17→12:44)
--- NOTE | 2021-01-15 10:22 | HPE ---
HISTORY AND PHYSICAL DATE OF ADMISSION: 01/14/2021 CHIEF COMPLAINT: "I passed out." HISTORY OF PRESENT ILLNESS: Samm is a 60-year-old gentleman with history of hypertension and chronic obstructive pulmonary disease (COPD) who presents to the hospital today following a syncopal episode at home. The patient states since he had his gallbladder out in September he has had diarrhea. He had stopped taking Imodium. He experienced a syncopal event while walking today. He was brought into the emergency room. He was found to have a normal EKG with just a slightly prolonged QTC at 480. Initial troponin markers were negative. He was found to have acute kidney injury with hyponatremia. He was hydrated with IV fluids. CT of the scan of the head was otherwise unremarkable as were other trauma films. The patient was admitted to the hospitalist service. ALLERGIES: PREGABALIN which causes hives. CURRENT HOME MEDICATIONS: 1. Albuterol inhaler. 2. Symbicort. 3. Citalopram. 4. Metoprolol. PAST MEDICAL HISTORY: Notable for hypertension, COPD, rotator cuff repair, carpal tunnel on the left side. He has had rib fractures, Methicillin-resistant staph aureus (MRSA) pneumonia, and alcoholism. SURGICAL HISTORY: Notable for cholecystectomy, right shoulder rotator cuff repair, and left carpal tunnel release. SOCIAL HISTORY: The patient smokes a half a pack per day. He drinks about 3-6 beers daily. He occasionally uses marijuana. He is on Social Security disability. His Khushboo is his surrogate medical decision maker. He is a full code. FAMILY HISTORY: Notable for his mom from a stroke; dad in his 90s from natural causes. REVIEW OF SYSTEMS: The patient reports having ongoing weight loss since September with inability to swallow things and keep things down. He denies having any nausea or vomiting. He does admit having diarrhea. He denies having any decreased urine output. He denies having any bleeding consisting of hematemesis, melena or hematochezia. PHYSICAL EXAMINATION: On examination, the patient's pulse is 80, blood pressure 82/61. O2 sat is 100% on room air. Temperature is 96.9 degrees. Respiratory rate is 18. Orthostatics were positive; please see emergency room record for details. GENERAL: The patient is alert and oriented times three. He is in no acute distress. SKIN: Intact and warm to touch. HEENT: Head is atraumatic and normocephalic. Pupils equal, round, and reactive to light and accommodation. Extraocular movements are full in all directions. He has no scleral icterus. Oropharynx is clear. Oral mucosa is dry. NECK: Supple. No jugular venous distension. No audible carotid bruit. LUNGS: Lung sounds appreciated without rales or rhonchi. HEART: S1, S2; no rubs or gallops. ABDOMEN: Soft, nontender, nondistended. EXTREMITIES: Without any significant cyanosis, clubbing or edema. NEUROLOGIC: Cranial nerves II through XII grossly intact without any focal neurologic deficits. LABORATORY DATA: White blood cell count is 15.6, hemoglobin is 12.6, hematocrit is 36.4, platelet count is 247. Sodium is 130, potassium is 2.2, chloride 96, bicarbonate is 21. Anion gap is 13. BUN is 16, creatinine is 1.81. Serum osmolality is 269. Calcium is 8.4. Total bilirubin is 2.1, AST is 56, ALT is 33, alkaline phosphatase is 166, total protein 7.5. TSH is 1. Free T4 is 1.11. COVID swab was negative. IMAGING STUDIES: X-ray of the thoracic spine was negative for any acute fracture. X-ray of the lumbar spine was negative. CT scan of the head was negative. CT of the cervical spine was negative for any acute fractures. Chest x-ray showed no acute pathology. EKG showed a normal sinus rhythm with slightly prolonged QTC at 480. IMPRESSION: 1. Acute syncope likely secondary to prerenal loss and associated with gastrointestinal (GI) losses. 2. Hypokalemia. 3. Dysphagia. 4. Hypertension. PLAN: The patient will be admitted to inpatient status. He warrants a minimum of two midnight hospital stay. He will be hydrated with IV fluids. We will correct his potassium levels. We will obtain an echocardiogram as well as an upper GI with small bowel follow through in the a.m. The patient will be placed on deep vein thrombosis prophylaxis. We will repeat labs in the morning. He will be a full code.
[2021-01-15 12:00] VITALS: BP 106/76
[2021-01-15] MEDS: LOPERAMIDE 2 MG CAPLET PO PRN (12:56)
--- NOTE | 2021-01-15 13:25 | IPNPDOC ---
Subjective Date Seen The patient was seen on 01/15/21. Subjective Chief Complaint/HPI Diego is doing well this morning. Reports feeling better. 1 episode of diarrhea this morning Objective Physical Examination General Exam: Positive: Alert, No Acute Distress Eye Exam: Positive: PERRLA, Conjunctiva & lids normal, EOMI; Negative: Sclera icteric ENT Exam: Positive: Atraumatic, Mucous membr. moist/pink, Pharynx Normal Neck Exam: Positive: Supple; Negative: JVD, thyromegaly Chest Exam: Positive: Clear to auscultation, Normal air movement Heart Exam: Positive: Rate Normal, Regular Rhythm, Normal S1, Normal S2; Negative: Murmurs, Rubs Telemetry: Positive: No significant arrhythmia Abdomen Exam: Positive: Normal bowel sounds, Soft; Negative: Tenderness, Hepatospenomegaly Extremity Exam: Positive: Normal pulses; Negative: Clubbing, Cyanosis, Edema Skin Exam: Positive: Nl turgor and temperature; Negative: Rash, Breakdown Psych Exam: Positive: Mental status NL, Mood NL, Oriented x 3 Assessment /Plan Assessment # Acute syncope likely secondary to prerenal loss and associated with gastrointestinal (GI) losses # ALEXIA - continue IVFs, creat improving - echo pending # Hypomagnesia # Hypokalemia - replace mag, check level in am - K corrected # Dysphagia - UGI with sbft pending if abnormal, consult GI for EGD # Hypertension - holding BP meds for now # chronic diarrhea - Imodium prn Dispo: home in next 24 hours Plan/VTE VTE Prophylaxis Ordered?: Yes (hep sq) VS, I&O, 24H, Fishbone Vital Signs/I&O Vital Signs Date Time Temp Pulse Resp B/P (MAP) Pulse Ox O2 Delivery O2 Flow Rate FiO2 01/15/21 12:00 98.1 93 16 106/76 (86) 98 Room Air I&O- Last 24 Hours up to 6 AM 01/15/21 06:00 Intake Total 2847 ml Output Total 0 ml Balance 2847 ml Laboratory Data 24H LABS Laboratory Tests 2 01/14/21 14:53: Immature Granulocyte % (Auto) 0.5, Neutrophils (%) (Auto) 85.3H, Lymphocytes (%) (Auto) 6.0L, Monocytes (%) (Auto) 7.8, Eosinophils (%) (Auto) 0.2, Basophils (%) (Auto) 0.2, Neutrophils # (Auto) 13.3H, Lymphocytes # (Auto) 0.9L, Monocytes # (Auto) 1.2H, Eosinophils # (Auto) 0.0, Basophils # (Auto) 0.0, Nucleated Red Blo od Cells % (auto) 0.0, Anion Gap 13, Glomerular Filtration Rate 40.9L, Osmolality 269L, Calcium Level 8.4L, Total Bilirubin 2.1H, Direct Bilirubin 0.9H, Aspartate Amino Transf (AST/SGOT) 56H, Alanine Aminotransferase (ALT/SGPT) 33, Alkaline Phosphatase 166H, Total Protein 7.5, Albumin 2.8L, Albumin/Globulin Ratio 0.6, Thyroid Stimulating Hormone (TSH) 1.060, Free Thyroxine 1.11 01/14/21 15:00: POC Glucose (Misc Panel) 109H, POC Sodium (Misc Panel) 129L, POC Potassium (Misc Panel) 3.2L, POC Chloride (Misc Panel) 94L, POC Total CO2 (Misc Panel) 19.0L, POC Blood Urea Nitrogen (Misc Panel 16, POC Ionized Calcium (Misc Panel) 4.3L, POC Creatinine (Misc Panel) 1.9H, POC Hematocrit (Misc Panel) 40.0 01/14/21 15:17: POC Troponin I (Misc) 0.00 01/14/21 16:21: Coronavirus (COVID-19)(PCR) NEGATIVE, Influenza Type A (RT-PCR) NEGATIVE, Inf luenza Type B (RT-PCR) NEGATIVE, Respiratory Syncytial Virus (PCR) NEGATIVE 01/14/21 20:17: Troponin I < 0.02 01/15/21 06:00: Nucleated Red Blood Cells % (auto) 0.0, Anion Gap 10, Glomerular Filtration Rate 57.4, Calcium Level 7.4L, Magnesium Level 1.4L CBC/BMP Laboratory Tests 01/14/21 14:53 01/15/21 06:00 MYRA MARION MD Jan 15, 2021 13:25
[2021-01-15 16:00] VITALS: BP 108/70
[2021-01-15 20:05] VITALS: BP 110/72
--- NOTE | 2021-01-15 20:27 | ECGEPIP ---
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
[2021-01-16] VITALS: BP 100/70
[2021-01-16] MEDS: KCL 20MEQ in NS 1000ML 1,000 ML IV SCH ×2 (02:40→04:00)
[2021-01-16 04:30] VITALS: BP 122/83
[2021-01-16] MEDS: SYMBICORT 160/4.5MCG INHALER 6GM INH SCH (07:29)
[2021-01-16 08:00] VITALS: BP 105/75
[2021-01-16] MEDS: HEPARIN SOD (PORCINE) 5000UNITS/ML 1ML VIAL/SYRINGE SC SCH (08:41)
[2021-01-16] MEDS: NICOTINE 14 MG/24 HR TRANSDERMAL TD SCH (08:41)
[2021-01-16] MEDS: CitaloPRAM (CeleXA) 20 MG TAB PO SCH (08:41)
[2021-01-16 09:41] LABS: BLOOD UREA NITROGEN 13 MG/DL (7-18); CALCIUM LEVEL 7.8 MG/DL (8.8-10.2); CARBON DIOXIDE LEVEL 21 MEQ/L (21-32); CHLORIDE LEVEL 110 MEQ/L (98-107); CREATININE FOR GFR 0.84 MG/DL (0.70-1.30); GLOMERULAR FILTRATION RATE > 60.0 (>49); GLUCOSE, FASTING 98 MG/DL (70-100); POTASSIUM SERUM 3.6 MEQ/L (3.5-5.1); SODIUM LEVEL 137 MEQ/L (136-145)
[2021-01-16] MEDS: LOPERAMIDE 2 MG CAPLET PO PRN (09:49)
[2021-01-16] MEDS ORDERED: ANTI2TAB16 PO (09:59)
[2021-01-16] MEDS ORDERED: NICO14PA TD (10:00)
--- NOTE | 2021-01-16 10:02 | DS.PDOC ---
Discharge Summary General Date of Admission Jan 14, 2021 at 17:48 Date of Discharge 01/16/21 Primary Care Physician: Lotus Medina Attending Physician: Miguel Najera MD Discharge Summary ADMITTING DIAGNOSES: 1. Acute syncope, likely secondary to prerenal renal losses associated with GI losses. 2. Hypokalemia. 3. Dysphagia. 4. Hypertension. DISCHARGE DIAGNOSES: 1. Acute kidney injury, resolved. 2. Hypokalemia, resolved. 3. Hypomagnesemia, resolved. 4. Dysphagia, resolved. 5. Hypertension, stable. 6. Chronic diarrhea, improved now that he is back on his Imodium. PROCEDURES PERFORMED DURING STAY: None. ADMISSION HISTORY: The patient states since he had his gallbladder out in September he has had diarrhea. He had stopped taking Imodium. He experienced a syncopal event while walking today. Please see the admission history and physical for the remaining details. HOSPITAL COURSE: Mr. Cantu was admitted to the hospital with an acute worsening of his chronic diarrhea because he stopped taking his Imodium. He was rehydrated with IV fluids. Once he was placed back on Imodium the diarrhea slowed and then stopped. He had abnormalities of potassium and magnesium both of which were corrected. He was going to have an upper GI series because of concerns about dysphagia when he was admitted, however, since he was admitted to the hospital he did not have this difficulty. The patient's report was corroborated by nursing. He requested discharge home without this test and that was coordinated. DISCHARGE CONDITION: Stable. FOLLOW-UP: Prior to discharge an appointment was scheduled with Dr. Lotus Medina on January 23 at 1:30. ACTIVITY: As tolerated. DIET: As tolerated. DISCHARGE MEDICATIONS: Please see below. ALLERGIES: Please see below. LABORATORY DATA: Please see below. IMAGING: Chest x-ray, head CT, cervical spine CT, lumbar spine x-ray, thoracic spine x-ray DISCHARGE INSTRUCTIONS: 1. Please take your Imodium as previously prescribed. TIME SPENT ON DISCHARGE: Greater than 20 minutes. Vital Signs/I&Os Vital Signs Date Time Temp Pulse Resp B/P (MAP) Pulse Ox O2 Delivery O2 Flow Rate FiO2 01/16/21 08:00 98.5 94 18 105/75 (85) 99 Room Air I&O- Last 24 Hours up to 6 AM 01/16/21 05:59 Intake Total 4380 ml Output Total 500 ml Balance 3880 ml Laboratory Data Labs 24H Laboratory Tests 2 7/26/21 15:26: Urine Osmolality 584, Urine Random Creatinine 203.0, Urine Random Sodium 14 01/16/21 05:42: Anion Gap 6L, Glomerular Filtration Rate > 60.0, Calcium Level 7.8L, Magnesium Level 2.0 CBC/BMP Laboratory Tests 01/16/21 05:42 Discharge Medications Scheduled Budesonide/Formoterol (Symbicort 160-4.5 Mcg Inhaler) 6 Gm Hfa.aer.ad, 2 PUFF INH BID, (Reported) Citalopram Hydrobromide (Citalopram HBr) 20 Mg Tablet, 20 MG PO DAILY, (Reported) Metoprolol Tartrate (Metoprolol Tartrate) 25 Mg Tab, 25 MG PO BID, (Reported) Nicotine (Nicotine Patch) 14 Mg Patch.td24, 1 PATCH TD DAILY Scheduled PRN Albuterol Sulfate (Ventolin Hfa) 108 Mcg/Act Aer, 1 PUFF INH Q4H PRN for SOB/WHEEZING, (Reported) Loperamide HCl (Anti-Diarrheal) 2 Mg Tablet, 4 MG PO Q4HP PRN for DIARRHEA Allergies Coded Allergies: pregabalin (Verified Allergy, Intermediate, HIVES, 09/22/20) Miguel Moe MD Jan 16, 2021 10:02
--- NOTE | 2021-01-17 08:11 | ECHO ---
ECHOCARDIOGRAM DATE OF PROCEDURE: 01/16/2021 Age: 60 Gender: M REFERRING PHYSICIAN: Dr. Keyshawn Agarwal PATIENT LOCATION: Room 3226 REASON FOR TESTING: Syncope. MEASUREMENTS: 2D MEASUREMENTS: IVS 1.2 cm LV 4.3 cm LVPW 1.0 cm LA 3.7 cm Aorta 3.1 cm IVC 1.2 cm DOPPLER MEASURMENTS: Peak velocity across the aortic valve 1.1 m/s Peak velocity across the LVOT 0.82 m/s Mitral E 0.65, mitral A 0.71 with a ratio of 0.9 Maximal tricuspid valve velocity 2.1 m/s 2D COMMENTS: 1. Normal left ventricular size, wall thickness, and a normal global left ventricular systolic function with a hypodynamic left ventricle. The estimated left ventricular systolic ejection fraction is 65-70%. 2. Normal left atrium. The right atrium and the right ventricle appear to be mildly enlarged in limited views. The right ventricular free wall was not well visualized. 3. The atrial septum appeared to be normal without evidence of defect or shunt. 4. Normal aortic root. 5. A small pericardial effusion was noted, no evidence of cardiac tamponade. 6. Mildly calcified aortic valve with normal leaflet excursion. Mildly calcified mitral annulus with normal anterior mitral valve leaflet motion. Normal tricuspid valve. The pulmonic valve and proximal pulmonary artery branches were not well visualized. 7. The inferior vena cava was normal in size; central venous pressure is most likely normal. DOPPLER: It detects mild mitral regurgitation, mild tricuspid regurgitation. The calculated pulmonary artery systolic pressure appeared to be normal. IMPRESSIONS: 1. Normal global left ventricular systolic function. As mentioned above, there are some features of grade 1 left ventricular diastolic dysfunction manifested by abnormal relaxation. 2. Aortic valve sclerosis without stenosis or aortic regurgitation. 3. Mitral valve annulus calcification with mild mitral regurgitation. 4. Mild tricuspid regurgitation. The right atrium appeared to be mildly enlarged. The right ventricle was not well visualized but also appeared to be mildly enlarged. 5. A small pericardial effusion was noted; no evidence of cardiac tamponade. MTDD
== END 2021-01-16 10:51 | disposition home or self-care (01) | DRG 684 ==
LOC: M ED 13:27 → M ED INP 17:48 → M PCU 17:48
PROVIDERS: ADMIT Internal Medicine; ATTEND Family Medicine
DX: N17.9 Acute kidney failure, unspecified (principal); I10 Essential (primary) hypertension; J44.9 Chronic obstructive pulmonary disease, unspecified; R13.10 Dysphagia, unspecified; E87.6 Hypokalemia; R55 Syncope and collapse; E83.42 Hypomagnesemia; K52.9 Noninfective gastroenteritis and colitis, unspecified; F17.200 Nicotine dependence, unspecified, uncomplicated; F10.20 Alcohol dependence, uncomplicated; Z87.81 Personal history of (healed) traumatic fracture; Z86.14 Personal history of Methicillin resistant Staphylococcus aureus infection; Z90.49 Acquired absence of other specified parts of digestive tract; Z88.8 Allergy status to other drugs, medicaments and biological substances; Z79.899 Other long term (current) drug therapy; Z20.822 Contact with and (suspected) exposure to COVID-19

== ENCOUNTER → 2021-02-23 | Outpatient (CLI) | payer MEDICARE ==
[~2021-02-23] MED LIST changes: +ANTI2TAB16 PO; +NICO14PA TD
[2021-02-23 11:54] LABS: BASO # 0.1 10^3/uL (0.0-0.2); BASO % 1.1 % (0.0-1.0); EOS # 0.1 10^3/uL (0.0-0.5); EOS % 1.9 % (0.0-3.0); HEMOGLOBIN 13.2 g/dl (13.5-17.5); LYMPH # 1.7 10^3/uL (1.5-5.0); LYMPH % 27.4 % (24.0-44.0); MEAN CORPUSCULAR HGB CONC 34.7 g/dl (32.0-36.5); MEAN CORPUSCULAR VOLUME 100.8 fl (80.0-96.0); MONO # 0.5 10^3/uL (0.0-0.8); MONO % 7.3 % (2.0-8.0); NEUTROPHILS # 3.8 10^3/uL (1.5-8.5); PLATELET COUNT, AUTOMATED 234 10^3/uL (150-450); RED BLOOD COUNT 3.77 10^6/uL (4.30-6.10); WHITE BLOOD COUNT 6.2 10^3/uL (4.0-10.0)
[2021-02-23 12:07] LABS: PARTIAL THROMBOPLASTIN TIME 28.9 SECONDS (25.9-37.0)
[2021-02-23 12:18] LABS: INR 2.76; PROTHROMBIN TIME 29.5 SECONDS (12.7-14.5)
[2021-02-23 12:22] LABS: ALBUMIN 2.5 GM/DL (3.2-5.2); ALT/SGPT 37 U/L (12-78); BILIRUBIN,DIRECT 0.3 MG/DL (0.0-0.2); BILIRUBIN,TOTAL 0.7 MG/DL (0.2-1.0); BLOOD UREA NITROGEN 3 MG/DL (7-18); CALCIUM LEVEL 8.7 MG/DL (8.8-10.2); CARBON DIOXIDE LEVEL 27 MEQ/L (21-32); CHLORIDE LEVEL 105 MEQ/L (98-107); CREATININE FOR GFR 0.72 MG/DL (0.70-1.30); GLOMERULAR FILTRATION RATE > 60.0 (>49); GLUCOSE, FASTING 92 MG/DL (70-100); IRON (FE) 102 UG/DL (65-175); POTASSIUM SERUM 3.6 MEQ/L (3.5-5.1); SODIUM LEVEL 140 MEQ/L (136-145); TOTAL IRON BINDING CAPACITY 232 UG/DL (250-450); TOTAL PROTEIN 6.5 GM/DL (6.4-8.2)
== END ==
LOC: M LAB 10:40
PROVIDERS: ATTEND Nurse Practitioner Family
DX: R58 Hemorrhage, not elsewhere classified (principal)

== ENCOUNTER → 2021-10-19 | Outpatient (CLI) | payer MEDICARE ==
[~2021-10-19] MED LIST changes: +IBUP200C25 PO; -KLOR10TA76 PO; +PERC5TAB12 PO; +POTA-136 PO
== END ==
LOC: M RAD 14:55
PROVIDERS: ATTEND Internal Medicine Pulmonary Disease
DX: F17.218 Nicotine dependence, cigarettes, with other nicotine-induced disorders (principal)

== ENCOUNTER 2021-10-22 10:13 | Emergency (ER) | payer MEDICARE ==
[~2021-10-22] VITALS: Ht 182.9 cm; Wt 66.8 kg
[~2021-10-22 10:13] MED LIST changes: -IBUP200C25 PO; -PERC5TAB12 PO
[2021-10-22] MEDS ORDERED: IBUP200C25 PO (11:14)
[2021-10-22] MEDS ORDERED: PERCOCET 5MG/325MG TAB PO ONE (12:15)
[2021-10-22] MEDS ORDERED: PERC5TAB12 PO (13:11)
[2021-10-22 13:36] VITALS: BP 111/60
== END 2021-10-22 14:02 | disposition home or self-care (01) ==
LOC: M ED 10:13
DX: S42.202A Unspecified fracture of upper end of left humerus, initial encounter for closed fracture (principal); S22.32XA Fracture of one rib, left side, initial encounter for closed fracture; W01.0XXA Fall on same level from slipping, tripping and stumbling without subsequent striking against object, initial encounter; Y92.098 Other place in other non-institutional residence as the place of occurrence of the external cause; I10 Essential (primary) hypertension; K21.9 Gastro-esophageal reflux disease without esophagitis; F41.9 Anxiety disorder, unspecified; F33.9 Major depressive disorder, recurrent, unspecified; F17.210 Nicotine dependence, cigarettes, uncomplicated; Z88.8 Allergy status to other drugs, medicaments and biological substances; Z79.899 Other long term (current) drug therapy; Z79.51 Long term (current) use of inhaled steroids; Z79.1 Long term (current) use of non-steroidal anti-inflammatories (NSAID)

== ENCOUNTER 2022-01-19 22:23 | Inpatient (IN) | payer MEDICARE ==
[~2022-01-19] VITALS: Ht 180.3 cm; Wt 62.2 kg
[~2022-01-19 22:23] MED LIST changes: +IBUP200C25 PO; +PERC5TAB12 PO
[2022-01-19] MEDS ORDERED: ZOLO25TA PO (22:35)
[2022-01-19] MEDS ORDERED: NS 1,000 ML IV ONE (22:50)
[2022-01-19 22:56] LABS: BASO % 0.6 % (0.0-1.0); EOS # 0.2 10^3/uL (0.0-0.5); EOS % 2.3 % (0.0-3.0); LYMPH # 1.3 10^3/uL (1.5-5.0); LYMPH % 19.8 % (24.0-44.0); MEAN CORPUSCULAR HEMOGLOBIN 26.5 pg (27.0-33.0); MEAN CORPUSCULAR HGB CONC 29.6 g/dl (32.0-36.5); MEAN CORPUSCULAR VOLUME 89.2 fl (80.0-96.0); MONO # 0.6 10^3/uL (0.0-0.8); MONO % 9.6 % (2.0-8.0); NEUTROPHILS # 4.4 10^3/uL (1.5-8.5); NEUTROPHILS % 67.5 % (36.0-66.0); PLATELET COUNT, AUTOMATED 218 10^3/uL (150-450); RED BLOOD COUNT 2.23 10^6/uL (4.30-6.10); WHITE BLOOD COUNT 6.6 10^3/uL (4.0-10.0)
[2022-01-19 23:00] LABS: HEMATOCRIT 19.9 % (42.0-52.0); HEMOGLOBIN 5.9 g/dl (13.5-17.5)
[2022-01-19] MEDS ORDERED: ISOVUE-370 76% 100ML VIAL As Ordered ONE (23:20)
[2022-01-19 23:29] LABS: ACETAMINOPHEN LEVEL 2.1 UG/ML (10.0-30.0); ALBUMIN 2.1 GM/DL (3.2-5.2); ALT/SGPT 29 U/L (12-78); BILIRUBIN,DIRECT 0.2 MG/DL (0.0-0.2); BILIRUBIN,TOTAL 0.5 MG/DL (0.2-1.0); BLOOD UREA NITROGEN 4 MG/DL (7-18); CALCIUM LEVEL 7.4 MG/DL (8.8-10.2); CARBON DIOXIDE LEVEL 19 MEQ/L (21-32); CHLORIDE LEVEL 109 MEQ/L (98-107); CREATININE FOR GFR 0.75 MG/DL (0.70-1.30); ETHYL ALCOHOL (ETHANOL) 0.095 % (0.000-0.010); GLOMERULAR FILTRATION RATE > 60.0 (>49); GLUCOSE, FASTING 109 MG/DL (70-100); MAGNESIUM LEVEL 1.1 MG/DL (1.8-2.4); POTASSIUM SERUM 3.4 MEQ/L (3.5-5.1); SODIUM LEVEL 139 MEQ/L (136-145); TOTAL PROTEIN 5.2 GM/DL (6.4-8.2)
[2022-01-19] MEDS ORDERED: CEFEPIME HCL 2 GM in D5W MINI-BAG PLUS 50 ML IV ONE (23:40)
[2022-01-19] MEDS ORDERED: NS IV ONE (23:40)
[2022-01-19 23:59] LABS: RSV AMPLIFICATION NEGATIVE (NEGATIVE)
[2022-01-20] VITALS (11 sets, daily range): BP systolic 100–117; BP diastolic 62–74
[2022-01-20 00:16] LABS: INR 1.17; PROTHROMBIN TIME 15.4 SECONDS (12.7-14.5)
[2022-01-20 00:17] LABS: PARTIAL THROMBOPLASTIN TIME 28.3 SECONDS (25.9-37.0)
[2022-01-20] MEDS ORDERED: MAG SULF 1GM/100ML (MAG RUN) 1 GM in IV 1 EA IV ONE (00:20)
[2022-01-20] MEDS ORDERED: SERT50TA29 PO (00:58)
[2022-01-20] MEDS ORDERED: ACET1TAB55 PO (00:58)
[2022-01-20] MEDS ORDERED: HOME MED LIST COMPLETE! XX SCH (01:00)
[2022-01-20 01:03] LABS: AMPHETAMINES LEVEL URINE NEGATIVE (NEGATIVE); BARBITURATES URINE NEGATIVE (NEGATIVE); BENZODIAZEPINES URINE NEGATIVE (NEGATIVE); CANNABINOIDS URINE POSITIVE (NEGATIVE); COCAINE METABOLITE URINE NEGATIVE (NEGATIVE); METHADONE URINE NEGATIVE (NEGATIVE); OPIATES URINE NEGATIVE (NEGATIVE); PHENCYCLIDINE URINE NEGATIVE (NEGATIVE)
[2022-01-20] MEDS ORDERED: LORazepam 2 MG TAB PO PRN (02:55)
[2022-01-20] MEDS ORDERED: POTASSIUM CHLORIDE 10% LIQ 20 MEQ/15 ML UDC PO ONE (04:00)
[2022-01-20 05:20] LABS: APPEARANCE, URINE CLEAR (CLEAR); BACTERIA, URINE AUTO NEGATIVE (NEGATIVE); BILIRUBIN, URINE AUTO NEGATIVE (NEGATIVE); BLOOD, URINE BLOOD NEGATIVE (NEGATIVE); COLOR, URINE STRAW (YELLOW); GLUCOSE, URINE (UA) AUTO NEGATIVE (NEGATIVE); KETONE, URINE AUTO NEGATIVE (NEGATIVE); LEUKOCYTE ESTERASE, URINE AUTO NEGATIVE (NEGATIVE); NITRITE, URINE AUTO NEGATIVE (NEGATIVE); PROTEIN, URINE AUTO NEGATIVE (NEGATIVE); RBC, URINE AUTO 0 /HPF (0-3); SPECIFIC GRAVITY URINE AUTO 1.013 (1.002-1.035); SQUAMOUS EPITHELIAL CELL UR AU 0 /HPF (0-6); UROBILINOGEN, URINE AUTO 0.2 mg/dL (0.0-2.0); WBC, URINE AUTO 0 /HPF (0-3)
[2022-01-20] MEDS: MAG SULF 1GM/100ML (MAG RUN) 1 GM in IV 1 EA IV SCH ×2 (06:05→08:28)
[2022-01-20] MEDS: THIAMINE 100 MG TAB PO SCH ×2 (06:06→20:56)
[2022-01-20] MEDS: MULTIVITAMINS/MINERALS THERAP 1 TAB PO SCH (08:28)
[2022-01-20] MEDS: FOLIC ACID 1MG TAB PO SCH (08:28)
[2022-01-20] MEDS: OYSTER SHELL CALCIUM 500 MG TAB PO SCH ×2 (08:52→20:56)
[2022-01-20] MEDS ORDERED: IRON SUCROSE 200 MG in NS 100 ML IV ONE (11:00)
[2022-01-20 11:19] LABS: HEMATOCRIT 29.4 % (42.0-52.0); MEAN CORPUSCULAR HEMOGLOBIN 28.1 pg (27.0-33.0); MEAN CORPUSCULAR HGB CONC 32.7 g/dl (32.0-36.5); PLATELET COUNT, AUTOMATED 215 10^3/uL (150-450); RED BLOOD COUNT 3.42 10^6/uL (4.30-6.10); WHITE BLOOD COUNT 7.2 10^3/uL (4.0-10.0)
[2022-01-20 11:30] LABS: BLOOD UREA NITROGEN 6 MG/DL (7-18); CALCIUM LEVEL 7.9 MG/DL (8.8-10.2); CARBON DIOXIDE LEVEL 22 MEQ/L (21-32); CHLORIDE LEVEL 110 MEQ/L (98-107); CREATININE FOR GFR 0.64 MG/DL (0.70-1.30); GLOMERULAR FILTRATION RATE > 60.0 (>49); GLUCOSE, FASTING 101 MG/DL (70-100); MAGNESIUM LEVEL 1.8 MG/DL (1.8-2.4); PHOSPHORUS LEVEL 2.8 MG/DL (2.5-4.9); POTASSIUM SERUM 3.8 MEQ/L (3.5-5.1); SODIUM LEVEL 139 MEQ/L (136-145)
[2022-01-20 11:42] LABS: HEMOGLOBIN 9.6 g/dl (13.5-17.5)
[2022-01-20] MEDS ORDERED: propofoL 200 MG/20 ML VIAL As Ordered ONE (13:16)
[2022-01-20] MEDS ORDERED: fentaNYL 100 MCG/2 ML INJECTION As Ordered ONE (13:16)
[2022-01-20] MEDS ORDERED: LIDOCAINE 2% INJ 100 MG/5 ML SYRINGE As Ordered ONE (13:16)
[2022-01-20] MEDS ORDERED: oxyCODONE 5MG TAB PO PRN (13:40)
[2022-01-20] MEDS ORDERED: LR 1,000 ML IV SCH (13:40)
[2022-01-20] MEDS ORDERED: fentaNYL 100 MCG/2 ML INJECTION IV PRN (13:40)
[2022-01-20] MEDS ORDERED: ONDANSETRON 4MG 2ML VIAL IV PRN (13:40)
[2022-01-20] MEDS ORDERED: MIRALAX *UNIT DOSE* 17GM PACKET PO ONE (16:00)
[2022-01-21] VITALS: BP 106/69
[2022-01-21 04:00] VITALS: BP 113/68
[2022-01-21] MEDS ORDERED: MAGNESIUM CITRATE 300 ML BTL PO ONE (06:00)
[2022-01-21 06:10] LABS: HEMOGLOBIN 9.2 g/dl (13.5-17.5); MEAN CORPUSCULAR HEMOGLOBIN 27.5 pg (27.0-33.0); MEAN CORPUSCULAR HGB CONC 31.7 g/dl (32.0-36.5); MEAN CORPUSCULAR VOLUME 86.6 fl (80.0-96.0); PLATELET COUNT, AUTOMATED 207 10^3/uL (150-450); RED BLOOD COUNT 3.35 10^6/uL (4.30-6.10); WHITE BLOOD COUNT 6.8 10^3/uL (4.0-10.0)
[2022-01-21 06:27] LABS: BLOOD UREA NITROGEN 5 MG/DL (7-18); CALCIUM LEVEL 8.1 MG/DL (8.8-10.2); CARBON DIOXIDE LEVEL 22 MEQ/L (21-32); CHLORIDE LEVEL 107 MEQ/L (98-107); CREATININE FOR GFR 0.48 MG/DL (0.70-1.30); GLOMERULAR FILTRATION RATE > 60.0 (>49); GLUCOSE, FASTING 88 MG/DL (70-100); MAGNESIUM LEVEL 1.5 MG/DL (1.8-2.4); PHOSPHORUS LEVEL 2.6 MG/DL (2.5-4.9); POTASSIUM SERUM 3.4 MEQ/L (3.5-5.1); SODIUM LEVEL 136 MEQ/L (136-145)
[2022-01-21 07:56] VITALS: BP 107/69
[2022-01-21] MEDS: OYSTER SHELL CALCIUM 500 MG TAB PO SCH ×2 (08:46→20:01)
[2022-01-21] MEDS: FOLIC ACID 1MG TAB PO SCH (08:46)
[2022-01-21] MEDS: THIAMINE 100 MG TAB PO SCH ×2 (08:46→20:01)
[2022-01-21] MEDS: MULTIVITAMINS/MINERALS THERAP 1 TAB PO SCH (08:46)
[2022-01-21] MEDS ORDERED: MAGNESIUM OXIDE 400MG TAB (MAG-OX) PO SCH (09:00)
[2022-01-21 09:52] LABS: TOTAL 25(OH) VITAMIN D 9.2 NG/ML (30.0-100.0)
[2022-01-21 09:53] LABS: FOLATE 7.7 NG/ML (>5.4)
[2022-01-21 11:48] VITALS: BP 104/71
[2022-01-21] MEDS ORDERED: LIDOCAINE 2% 100MG/5ML SDV (FOR ANES.) As Ordered ONE (15:18)
[2022-01-21] MEDS ORDERED: propofoL 200 MG/20 ML VIAL As Ordered ONE (15:18)
[2022-01-21 16:20] VITALS: BP 122/81
[2022-01-21] MEDS: IRON SUCROSE 200 MG in NS 100 ML IV SCH (16:21)
[2022-01-21 20:00] VITALS: BP 111/68
[2022-01-22] VITALS: BP 109/75
[2022-01-22 04:00] VITALS: BP 124/76
[2022-01-22 05:56] LABS: HEMATOCRIT 30.2 % (42.0-52.0); HEMOGLOBIN 9.3 g/dl (13.5-17.5); MEAN CORPUSCULAR HEMOGLOBIN 27.2 pg (27.0-33.0); MEAN CORPUSCULAR HGB CONC 30.8 g/dl (32.0-36.5); MEAN CORPUSCULAR VOLUME 88.3 fl (80.0-96.0); PLATELET COUNT, AUTOMATED 206 10^3/uL (150-450); RED BLOOD COUNT 3.42 10^6/uL (4.30-6.10); WHITE BLOOD COUNT 7.7 10^3/uL (4.0-10.0)
[2022-01-22 06:45] LABS: BLOOD UREA NITROGEN 6 MG/DL (7-18); CALCIUM LEVEL 8.5 MG/DL (8.8-10.2); CARBON DIOXIDE LEVEL 25 MEQ/L (21-32); CHLORIDE LEVEL 106 MEQ/L (98-107); CREATININE FOR GFR 0.62 MG/DL (0.70-1.30); GLOMERULAR FILTRATION RATE > 60.0 (>49); GLUCOSE, FASTING 96 MG/DL (70-100); MAGNESIUM LEVEL 1.4 MG/DL (1.8-2.4); POTASSIUM SERUM 3.4 MEQ/L (3.5-5.1); SODIUM LEVEL 135 MEQ/L (136-145)
[2022-01-22 07:57] VITALS: BP 126/81
[2022-01-22] MEDS: FOLIC ACID 1MG TAB PO SCH (08:36)
[2022-01-22] MEDS: OYSTER SHELL CALCIUM 500 MG TAB PO SCH (08:37)
[2022-01-22] MEDS: MULTIVITAMINS/MINERALS THERAP 1 TAB PO SCH (08:37)
[2022-01-22] MEDS: THIAMINE 100 MG TAB PO SCH (08:37)
[2022-01-22] MEDS ORDERED: MAGNESIUM OXIDE 400MG TAB (MAG-OX) PO SCH (09:00)
[2022-01-22] MEDS ORDERED: MAGN400T2 PO (11:24)
[2022-01-22] MEDS ORDERED: FERR325T3 PO (11:24)
[2022-01-22] MEDS ORDERED: FOLI1TAB11 PO (11:24)
[2022-01-22] MEDS ORDERED: THIA100TA PO (11:24)
[2022-01-22] MEDS ORDERED: CALCI50TA PO (11:24)
[2022-01-22] MEDS ORDERED: VITMTA PO (11:24)
[2022-01-22] MEDS: IRON SUCROSE 200 MG in NS 100 ML IV SCH (11:58)
[2022-01-22 12:09] VITALS: BP 109/74
[2022-01-22] MEDS ORDERED: POTASSIUM CHLORIDE 10MEQ SR TABLET PO ONE (12:15)
== END 2022-01-22 14:23 | disposition home or self-care (01) | DRG 378 ==
LOC: M ED 22:23 → M ED INP 01-20 00:59 → ENRESERV 01-20 01:32 → M PCU 01-20 02:24
PROVIDERS: ADMIT Internal Medicine; ATTEND Student in an Organized Health Care Education/Training Program
PROC: 30233N1 Transfusion of Nonautologous Red Blood Cells into Peripheral Vein, Percutaneous Approach (ICD-10-PCS; 2022-01-20)
PROC: 0DJ08ZZ Inspection of Upper Intestinal Tract, Via Natural or Artificial Opening Endoscopic (ICD-10-PCS; principal; 2022-01-20 08:35)
PROC: 0DBN8ZX Excision of Sigmoid Colon, Via Natural or Artificial Opening Endoscopic, Diagnostic (ICD-10-PCS; 2022-01-21)
PROC: 0DBE8ZX Excision of Large Intestine, Via Natural or Artificial Opening Endoscopic, Diagnostic (ICD-10-PCS; 2022-01-21)
DX: K92.2 Gastrointestinal hemorrhage, unspecified (principal); E87.2 Acidosis; D62 Acute posthemorrhagic anemia; F10.10 Alcohol abuse, uncomplicated; F17.210 Nicotine dependence, cigarettes, uncomplicated; E83.42 Hypomagnesemia; E87.6 Hypokalemia; R94.31 Abnormal electrocardiogram [ECG] [EKG]; E86.1 Hypovolemia; E83.51 Hypocalcemia; K44.9 Diaphragmatic hernia without obstruction or gangrene; D50.9 Iron deficiency anemia, unspecified; K64.8 Other hemorrhoids; K63.89 Other specified diseases of intestine; D12.5 Benign neoplasm of sigmoid colon; R63.4 Abnormal weight loss; R55 Syncope and collapse; Z79.899 Other long term (current) drug therapy; Z88.8 Allergy status to other drugs, medicaments and biological substances

== ENCOUNTER → 2023-04-14 | Outpatient (CLI) | payer MEDICARE ==
[~2023-04-14] MED LIST changes: +CALCI50TA PO; -DOXY-350 PO; +DOXY-444 PO; +FERR325T3 PO; +FOLI1TAB11 PO; +MAGN400T2 PO; +SERT50TA29 PO; +THIA100TA PO; +VITMTA PO; +ZOLO25TA PO
[2023-04-14 12:20] LABS: BASO # 0.1 10^3/uL (0.0-0.2); BASO % 1.1 % (0.0-1.0); EOS # 0.1 10^3/uL (0.0-0.5); EOS % 1.1 % (0.0-3.0); HEMATOCRIT 39.1 % (42.0-52.0); HEMOGLOBIN 12.5 g/dl (13.5-17.5); LYMPH % 20.6 % (24.0-44.0); MEAN CORPUSCULAR HEMOGLOBIN 29.9 pg (27.0-33.0); MEAN CORPUSCULAR VOLUME 93.5 fl (80.0-96.0); MONO # 0.5 10^3/uL (0.0-0.8); MONO % 10.7 % (2.0-8.0); NEUTROPHILS # 3.1 10^3/uL (1.5-8.5); NEUTROPHILS % 66.1 % (36.0-66.0); PLATELET COUNT, AUTOMATED 178 10^3/uL (150-450); RED BLOOD COUNT 4.18 10^6/uL (4.30-6.10); WHITE BLOOD COUNT 4.8 10^3/uL (4.0-10.0)
[2023-04-15 05:29] LABS: IRON (FE) 36 UG/DL (65-175); PERCENT SATURATION 9.4 % (19.7-50.0); TOTAL IRON BINDING CAPACITY 383 UG/DL (250-425)
[2023-04-15 05:31] LABS: ALBUMIN 3.3 G/DL (3.2-5.2); ALKALINE PHOSPHATASE 107 U/L (46-116); ALT/SGPT 33 U/L (7.0-40); AST/SGOT 41 U/L (<34); BILIRUBIN,TOTAL 1.2 MG/DL (0.3-1.2); BLOOD UREA NITROGEN 9 MG/DL (9-23); CALCIUM LEVEL 9.4 MG/DL (8.3-10.6); CARBON DIOXIDE LEVEL 28 MMOL/L (20-31); CHLORIDE LEVEL 103 MMOL/L (98-107); CHOLESTEROL LEVEL 200 MG/DL (<200); CHOLESTEROL RISK RATIO 1.86 (<5); CREATININE FOR GFR 0.82 MG/DL (0.70-1.30); FERRITIN 23.5 NG/ML (10.5-307.3); FOLATE > 24.0 NG/ML (>5.4); GLOMERULAR FILTRATION RATE > 60.0 (>49); GLUCOSE, FASTING 102 MG/DL (74-106); HDL CHOLESTEROL 107.4 MG/DL (>40); LDL CHOLESTEROL 76.6 MG/DL (<100); NON-HDL-C 92.6 MG/DL; POTASSIUM SERUM 3.7 MMOL/L (3.5-5.1); SODIUM LEVEL 136 MMOL/L (136-145); TOTAL PROTEIN 7.2 G/DL (5.7-8.2); TRIGLYCERIDES LEVEL 80 MG/DL (<150); VITAMIN B12 LEVEL 603 PG/ML (211-911)
== END ==
LOC: M LAB 11:40
PROVIDERS: ATTEND Nurse Practitioner Family
DX: I10 Essential (primary) hypertension (principal); D50.9 Iron deficiency anemia, unspecified

== ENCOUNTER 2024-02-19 11:30 | Emergency (ER) | payer MEDICARE, OTHER ==
[~2024-02-19] VITALS: Ht 182.9 cm; Wt 69.4 kg
[~2024-02-19 11:30] MED LIST changes: +DOXY-440 PO; -DOXY-444 PO
[2024-02-19] MEDS: NS 1,000 ML IV ONE (12:49)
[2024-02-19 12:59] LABS: BASO % 0.4 % (0.0-1.0); EOS # 0.1 10^3/uL (0.0-0.5); EOS % 1.5 % (0.0-3.0); HEMATOCRIT 33.2 % (42.0-52.0); HEMOGLOBIN 10.7 g/dl (13.5-17.5); LYMPH % 11.1 % (24.0-44.0); MEAN CORPUSCULAR HEMOGLOBIN 29.6 pg (27.0-33.0); MEAN CORPUSCULAR HGB CONC 32.2 g/dl (32.0-36.5); MONO # 1.1 10^3/uL (0.0-0.8); MONO % 11.8 % (2.0-8.0); NEUTROPHILS # 6.9 10^3/uL (1.5-8.5); NEUTROPHILS % 74.8 % (36.0-66.0); PLATELET COUNT, AUTOMATED 178 10^3/uL (150-450); RED BLOOD COUNT 3.61 10^6/uL (4.30-6.10); WHITE BLOOD COUNT 9.2 10^3/uL (4.0-10.0)
[2024-02-19 13:10] LABS: ERYTHROCYTE SEDIMENTATION RATE 71 mm/hr (0-20)
[2024-02-19 13:14] LABS: D-DIMER QUANT 0.64 ug/mL (<0.5); PARTIAL THROMBOPLASTIN TIME 31.8 SECONDS (24.8-34.2); PROTHROMBIN TIME 12.9 SECONDS (12.5-14.5)
[2024-02-19 13:21] LABS: CK-MB VALUE MASS < 1.0 NG/ML (<3.6); LIPASE 71 U/L (12-53)
[2024-02-19 13:23] LABS: ALBUMIN 3.1 G/DL (3.2-5.2); ALKALINE PHOSPHATASE 118 U/L (46-116); ALT/SGPT 25 U/L (7.0-40); AST/SGOT 20 U/L (<34); BILIRUBIN,DIRECT 0.2 MG/DL (<0.4); BILIRUBIN,TOTAL 0.5 MG/DL (0.3-1.2); BLOOD UREA NITROGEN 21 MG/DL (9-23); CALCIUM LEVEL 9.4 MG/DL (8.3-10.6); CARBON DIOXIDE LEVEL 28 MMOL/L (20-31); CHLORIDE LEVEL 111 MMOL/L (98-107); CPK CREATINE PHOSPHOKINASE 41 U/L (46-171); CREATININE FOR GFR 0.86 MG/DL (0.70-1.30); GLOMERULAR FILTRATION RATE > 60.0 (>49); GLUCOSE, FASTING 98 MG/DL (74-106); MB/CK RELATIVE INDEX 2.43 (< OR =4); POTASSIUM SERUM 4.4 MMOL/L (3.5-5.1); SODIUM LEVEL 139 MMOL/L (136-145); TOTAL PROTEIN 7.3 G/DL (5.7-8.2)
[2024-02-19] MEDS ORDERED: ISOVUE-370 76% 100ML VIAL As Ordered ONE (13:47)
[2024-02-19] MEDS: MORPHINE 4 MG/ML 1ML VIAL IV ONE ×2 (15:10→19:31)
[2024-02-19 22:17] VITALS: BP 127/74; TEMP 97.9; O2SAT 99
== END 2024-02-19 22:22 | disposition left against medical advice (07) ==
LOC: M ED 11:30
DX: L03.811 Cellulitis of head [any part, except face] (principal); S22.050A Wedge compression fracture of T5-T6 vertebra, initial encounter for closed fracture; S22.070A Wedge compression fracture of T9-T10 vertebra, initial encounter for closed fracture; S22.080A Wedge compression fracture of T11-T12 vertebra, initial encounter for closed fracture; S22.43XA Multiple fractures of ribs, bilateral, initial encounter for closed fracture; I10 Essential (primary) hypertension; J44.9 Chronic obstructive pulmonary disease, unspecified; K21.9 Gastro-esophageal reflux disease without esophagitis; G47.33 Obstructive sleep apnea (adult) (pediatric); F41.9 Anxiety disorder, unspecified; F32.A Depression, unspecified; F17.200 Nicotine dependence, unspecified, uncomplicated; F10.10 Alcohol abuse, uncomplicated; Z88.0 Allergy status to penicillin; Z79.52 Long term (current) use of systemic steroids; Z79.899 Other long term (current) drug therapy; Y92.9 Unspecified place or not applicable; Y93.89 Activity, other specified; Y99.9 Unspecified external cause status; Z53.9 Procedure and treatment not carried out, unspecified reason
CPT/HCPCS: 71101; 71275; 72146; 72148; 80048; 80076; 82550; 82553; 83605; 83690; 83880; 84484; 85025; 85379; 85610; 85652; 85730; 86140; 87040; 93005; 96374; 96376; 99285; Q9967

== ENCOUNTER 2024-02-23 10:23 | Emergency (ER) | payer OTHER ==
[~2024-02-23] VITALS: Ht 182.9 cm; Wt 77.5 kg
[2024-02-23] MEDS ORDERED: OXYC-517 (10:53)
[2024-02-23] MEDS: PERCOCET 5MG/325MG TAB PO ONE (10:56)
[2024-02-23] MEDS: LIDOCAINE 2% W/EPINEPHRINE 20ML VIAL **PRES FREE INJ ONE (11:54)
[2024-02-23] MEDS ORDERED: DOXYCYCLINE HYCLATE 100MG TABLET PO ONE (12:10)
[2024-02-23] MEDS ORDERED: PERCOCET 5MG/325MG TAB PO ONE (12:10)
[2024-02-23] MEDS ORDERED: DOXY100C82 PO (12:11)
[2024-02-23] MEDS ORDERED: PERC5TAB12 PO (12:12)
[2024-02-23 12:31] VITALS: BP 120/73; TEMP 97.7; O2SAT 97
== END 2024-02-23 12:40 | disposition home or self-care (01) ==
LOC: M ED 10:23
DX: L02.91 Cutaneous abscess, unspecified (principal); I10 Essential (primary) hypertension; J44.9 Chronic obstructive pulmonary disease, unspecified; F17.210 Nicotine dependence, cigarettes, uncomplicated; F10.10 Alcohol abuse, uncomplicated; Z88.8 Allergy status to other drugs, medicaments and biological substances; Z79.1 Long term (current) use of non-steroidal anti-inflammatories (NSAID); Z79.51 Long term (current) use of inhaled steroids; Z79.810 Long term (current) use of selective estrogen receptor modulators (SERMs); Z79.899 Other long term (current) drug therapy